=== PATIENT | male | born 1970 | race African-American/Black ===

== ENCOUNTER 2018-06-07 19:49 | Inpatient (IN) ==
[2018-06-07 20:42] LABS: BASOPHILS # (AUTO) 0.1 X10^3/uL (0.0-0.1); BASOPHILS % (AUTO) 0.7 % (0.2-1.0); EOSINOPHILS # (AUTO) 0.1 x10^3/uL (0.0-0.2); EOSINOPHILS % (AUTO) 0.5 % (0.9-2.9); HEMATOCRIT 29.8 % (42.0-54.0); HEMOGLOBIN 10.2 g/dL (13.5-18.0); LYMPHOCYTES # (AUTO) 1.7 X10^3/uL (1.3-2.9); LYMPHOCYTES % (AUTO) 13.9 % (21.0-51.0); MEAN CORPUSCULAR HEMOGLOBIN 29.1 pg (27.0-34.0); MEAN CORPUSCULAR HGB CONC 34.2 g/dL (33.0-35.0); MEAN CORPUSCULAR VOLUME 85.2 fL (80.0-100.0); MEAN PLATELET VOLUME 9.2 fL (7.4-11.0); MONOCYTES # (AUTO) 1.2 x10^3/uL (0.3-0.8); MONOCYTES % (AUTO) 10.1 % (0.0-13.0); NEUTROPHILS # (AUTO) 9.1 x10^3/uL (2.2-4.8); NEUTROPHILS % (AUTO) 74.8 % (42.0-75.0); PLATELET COUNT 267 X10^3/uL (150.0-450.0); RED CELL DISTRIBUTION WIDTH 12.6 % (11.6-16.5); WHITE BLOOD COUNT 12.1 X10^3/uL (3.6-10.0)
[2018-06-07 20:49] LABS: CALCIUM 9.5 mg/dL (8.5-10.1); CREATININE 1.77 mg/dL (0.70-1.30)
[2018-06-07 20:55] LABS: ALBUMIN 1.8 g/dL (3.4-5.0); COR CA(FOR HYPOALB) 11.3 mg/dL (8.5-10.1); TOTAL PROTEIN 7.8 g/dL (6.4-8.2)
[2018-06-07] MEDS ORDERED: NS 1000 ML 1,000 ML ONE (23:47)
[2018-06-07] MEDS ORDERED: HumuLIN R SUBCUT ONE (23:53)
[2018-06-07] MEDS ORDERED: HumuLIN R ONE (23:54)
[2018-06-07] MEDS: NS 1000 ML 1,000 ML IV SCH (23:59)
[2018-06-08] MEDS ORDERED: HumuLIN R SC PRN (02:16)
[2018-06-08] MEDS ORDERED: HumuLIN R ONE (02:25)
[2018-06-08 03:24] VITALS: BMI 25.7
[2018-06-08] MEDS: NICOTINE PATCH TD SCH ×2 (03:41→09:00)
[2018-06-08] MEDS ORDERED: TYLENOL 325 MG TAB PO PRN (05:14)
[2018-06-08] MEDS: ZOSYN VIAL 4.5 GRAMS 4.5 G in NS 100 ML IV + SPIKE MINIBAG* 100 ML IV SCH ×3 (05:46→22:55)
[2018-06-08] MEDS: HumuLIN R SUBCUT PRN ×4 (05:46→20:32)
[2018-06-08] MEDS ORDERED: ZOSYN VIAL 4.5 GRAMS IV SCH (06:00)
[2018-06-08 06:35] LABS: BASOPHILS # (AUTO) 0.1 X10^3/uL (0.0-0.1); BASOPHILS % (AUTO) 0.8 % (0.2-1.0); EOSINOPHILS # (AUTO) 0.2 x10^3/uL (0.0-0.2); EOSINOPHILS % (AUTO) 1.9 % (0.9-2.9); HEMATOCRIT 26.5 % (42.0-54.0); HEMOGLOBIN 9.4 g/dL (13.5-18.0); LYMPHOCYTES # (AUTO) 1.7 X10^3/uL (1.3-2.9); LYMPHOCYTES % (AUTO) 19.1 % (21.0-51.0); MEAN CORPUSCULAR HEMOGLOBIN 29.5 pg (27.0-34.0); MEAN CORPUSCULAR HGB CONC 35.4 g/dL (33.0-35.0); MEAN CORPUSCULAR VOLUME 83.3 fL (80.0-100.0); MEAN PLATELET VOLUME 8.7 fL (7.4-11.0); MONOCYTES # (AUTO) 0.9 x10^3/uL (0.3-0.8); MONOCYTES % (AUTO) 10.1 % (0.0-13.0); NEUTROPHILS % (AUTO) 68.1 % (42.0-75.0); PLATELET COUNT 253 X10^3/uL (150.0-450.0); RED BLOOD COUNT 3.19 X10^6/uL (4.7-6.0); RED CELL DISTRIBUTION WIDTH 12.5 % (11.6-16.5); WHITE BLOOD COUNT 8.8 X10^3/uL (3.6-10.0)
[2018-06-08 06:58] LABS: ALANINE AMINOTRANSFERASE 15 Units/L (12-78); ALBUMIN 1.7 g/dL (3.4-5.0); ALKALINE PHOSPHATASE 34 Units/L (46-116); ASPARTATE AMINO TRANSFERASE 18 Units/L (15-37); BLOOD UREA NITROGEN 23 mg/dL (7-18); CALCIUM 8.9 mg/dL (8.5-10.1); CARBON DIOXIDE 26.1 mmol/L (21-32); CHLORIDE 95 mmol/L (98-107); COR CA(FOR HYPOALB) 10.7 mg/dL (8.5-10.1); COR NA(FOR HYPERGLY) 134 mmol/L (136-145); CREATININE 1.41 mg/dL (0.70-1.30); SODIUM 129 mmol/L (136-145); TOTAL PROTEIN 7.1 g/dL (6.4-8.2); eGFR NON BLACK RACES 58 (>60)
[2018-06-08] MEDS: NS 1000 ML 1,000 ML IV SCH ×4 (08:31→22:56)
[2018-06-08] MEDS: CHECK PATCH XX SCH ×2 (12:36→20:32)
[2018-06-08] MEDS: VANCOMYCIN HCL 1 GM VIAL 1 G in NS 250 ML IV 250 ML IV SCH (15:35)
--- NOTE | 2018-06-08 17:49 | MRI ---
Indication: Osteomyelitis left foot, left 5th toe wound Exam: MRI left foot with and without contrast. Technique: Routine multiplanar multi sequence imaging was performed through the left foot before and after administration of gadolinium without complication. Comparison: None. Findings: The ankle mortise is intact. The talus and calcaneus are unremarkable. The navicular bones are intact and normal signal intensity. The 1st toe has been surgically resected. There is moderate s tranding and edema in the soft tissues along the base around the head of the 1st metatarsal bone . Th ere is moderate edema in the bone marrow along the proximal shaft of the 1st metatarsal bone extendin g distally into the head region. There is moderate bone marrow edema throughout the 2nd metatarsal veronica ne with bony irregularity along the head region of the metatarsal bone . There is abnormal edema in t he proximal phalanx of the 2nd digit extending distally . There is abnormal bone marrow edema through out the 5th metatarsal bone extending into the proximal phalanx of the 5th toe . The distal phalanx o f the 5th toe is normal signal intensity . There is moderate soft tissue swelling and edema around th e DIP joint of the 5th toe extending proximally and distally with skin irregularity laterally. There is an elongated subcutaneous fluid collection along the dorsum of the foot laterally beginning along the base of the 5th metatarsal bone extending distally along the 5th metatarsal bone which extends to the skin surface laterally. The fluid measures 7 cm in length and 1 cm transversely with peripheral enhancement. moderate stranding and edema in the subcutaneous soft tissues along the dorsum of the mi dfoot extending distally around the foot and into the digits. Impression: Status post amputation of 1st toe with moderate edema throughout the 1st metatarsal bone which is damari picious for osteomyelitis. Moderate edema throughout the 2nd metatarsal bone with bony irregularity along the head region which could represent a pathologic fracture or Charcot joint. Recommend plain film correlation. There is mo derate extending into the proximal phalanx of the 2nd toe which is suspicious for osteomyelitis. Moderate bone marrow edema throughout the 5th metatarsal bone extending into the proximal phalanx of the 5th toe which probably represents osteomyelitis . Moderate cellulitis and edema throughout the foot extending along the dorsum of the foot with an dinh gated fluid collection seen along the lateral aspect of the foot , adjacent to the 5th metatarsal bon e , which probably represents a subcutaneous abscess extending to the skin surface laterally. Recomme nd clinical follow-up. Reported By:
[2018-06-08] MEDS ORDERED: MILK OF MAGNESIA PO PRN (18:58)
[2018-06-08] MEDS ORDERED: COLACE CAP 100 MG PO PRN (18:58)
[2018-06-08] MEDS: SNACK - Diabetic Appropriate PO SCH (20:31)
[2018-06-09] MEDS: HumuLIN R SUBCUT PRN ×3 (05:54→22:15)
[2018-06-09] MEDS: ZOSYN VIAL 4.5 GRAMS 4.5 G in NS 100 ML IV + SPIKE MINIBAG* 100 ML IV SCH ×3 (05:55→22:33)
[2018-06-09 06:09] LABS: BASOPHILS # (AUTO) 0.1 X10^3/uL (0.0-0.1); BASOPHILS % (AUTO) 0.7 % (0.2-1.0); EOSINOPHILS # (AUTO) 0.1 x10^3/uL (0.0-0.2); EOSINOPHILS % (AUTO) 1.4 % (0.9-2.9); HEMATOCRIT 24.5 % (42.0-54.0); HEMOGLOBIN 8.5 g/dL (13.5-18.0); LYMPHOCYTES # (AUTO) 2.2 X10^3/uL (1.3-2.9); MEAN CORPUSCULAR HEMOGLOBIN 29.6 pg (27.0-34.0); MEAN CORPUSCULAR VOLUME 84.7 fL (80.0-100.0); MEAN PLATELET VOLUME 8.2 fL (7.4-11.0); MONOCYTES # (AUTO) 1.1 x10^3/uL (0.3-0.8); MONOCYTES % (AUTO) 12.4 % (0.0-13.0); NEUTROPHILS # (AUTO) 5.3 x10^3/uL (2.2-4.8); NEUTROPHILS % (AUTO) 60.5 % (42.0-75.0); PLATELET COUNT 247 X10^3/uL (150.0-450.0); RED BLOOD COUNT 2.89 X10^6/uL (4.7-6.0); RED CELL DISTRIBUTION WIDTH 12.6 % (11.6-16.5); WHITE BLOOD COUNT 8.7 X10^3/uL (3.6-10.0)
[2018-06-09 06:37] LABS: ALANINE AMINOTRANSFERASE 14 Units/L (12-78); ALBUMIN 1.4 g/dL (3.4-5.0); ALKALINE PHOSPHATASE 30 Units/L (46-116); ASPARTATE AMINO TRANSFERASE 16 Units/L (15-37); BLOOD UREA NITROGEN 14 mg/dL (7-18); CALCIUM 8.4 mg/dL (8.5-10.1); CARBON DIOXIDE 24.5 mmol/L (21-32); CHLORIDE 98 mmol/L (98-107); COR CA(FOR HYPOALB) 10.5 mg/dL (8.5-10.1); COR NA(FOR HYPERGLY) 136 mmol/L (136-145); CREATININE 1.45 mg/dL (0.70-1.30); SODIUM 130 mmol/L (136-145); TOTAL PROTEIN 6.4 g/dL (6.4-8.2); eGFR NON BLACK RACES 56 (>60)
[2018-06-09] MEDS: CHECK PATCH XX SCH ×2 (09:57→21:28)
[2018-06-09] MEDS: VANCOMYCIN HCL 1 GM VIAL 1 G in NS 250 ML IV 250 ML IV SCH ×2 (09:58→21:28)
[2018-06-09] MEDS: NICOTINE PATCH TD SCH (09:58)
[2018-06-09] MEDS ORDERED: HYDROGEN PEROXIDE 3% ONE (12:12)
--- NOTE | 2018-06-09 13:05 | DR.PROGNOT ---
Hospital Progress Notes - Progress Note for Day of: Progress Note Date: 06/09/18 - Chief Complaint Chief Complaint: still having significant drainage from Lt foot ulcer , culture revealed mixed bacteria , pt is afebrile today - Past Medical Family Social History Past Med/Fam/Surg Hx: No changes since H&P Allergies: Allergies No Known Drug Allergies Allergy (Verified 06/07/18 19:58) - Review Of Systems ROS: No change since H&P - Vital Signs Vital Signs: Temperature 98.6 F Pulse Rate [Right Radial] 91 Pulse Rate [Right] 92 Pulse Rate 113 Respiratory Rate 16 Blood Pressure [Right Arm] 160/94 Blood Pressure [Left Arm] 139/82 Blood Pressure 112/68 O2 Sat by Pulse Oximetry 100 - Physical Exam Oriented: Normal Eyes: Normal Ear: Normal Nose: Normal Respiratory: Normal Cardiovascular: Normal GI: Tenderness: Normal Musculoskeletal: Foot (dressing was changed . cellulitis had improvrd no tunneling now and no necrosis ..signs of charcot foot 4 x 3 cm open wound lateral Lt foot ) Speech Pattern: Clear, Appropriate - Laboratory and Diagnostics Result Diagrams: 06/09/18 05:40 06/09/18 05:40 Labs: 06/07/18 20:22 Foot - Left Gram Stain - Final 06/07/18 20:22 Foot - Left Wound Culture - Preliminary 06/08/18 14:13 Foot - Left Gram Stain - Final 06/08/18 14:13 Foot - Left Wound Culture - Preliminary Laboratory WBC 8.7 X10^3/uL (3.6-10.0) 06/09/18 05:40 RBC 2.89 X10^6/uL (4.7-6.0) L 06/09/18 05:40 Hgb 8.5 g/dL (13.5-18.0) L 06/09/18 05:40 Hct 24.5 % (42.0-54.0) L 06/09/18 05:40 MCV 84.7 fL (80.0-100.0) 06/09/18 05:40 MCH 29.6 pg (27.0-34.0) 06/09/18 05:40 MCHC 35.0 g/dL (33.0-35.0) 06/09/18 05:40 RDW 12.6 % (11.6-16.5) 06/09/18 05:40 Plt Count 247 X10^3/uL (150.0-450.0) 06/09/18 05:40 MPV 8.2 fL (7.4-11.0) 06/09/18 05:40 Neut % (Auto) 60.5 % (42.0-75.0) 06/09/18 05:40 Lymph % (Auto) 25.0 % (21.0-51.0) 06/09/18 05:40 Josephine % (Auto) 12.4 % (0.0-13.0) 06/09/18 05:40 Eos % (Auto) 1.4 % (0.9-2.9) 06/09/18 05:40 Baso % (Auto) 0.7 % (0.2-1.0) 06/09/18 05:40 Neut # (Auto) 5.3 x10^3/uL (2.2-4.8) H 06/09/18 05:40 Lymph # (Auto) 2.2 X10^3/uL (1.3-2.9) 06/09/18 05:40 Josephine # (Auto) 1.1 x10^3/uL (0.3-0.8) H 06/09/18 05:40 Eos # (Auto) 0.1 x10^3/uL (0.0-0.2) 06/09/18 05:40 Baso # (Auto) 0.1 X10^3/uL (0.0-0.1) 06/09/18 05:40 Absolute Nucleated RBC 0.0 /100WBC 06/09/18 05:40 Sodium 130 mmol/L (136-145) L 06/09/18 05:40 Corrected Sodium 136 mmol/L (136-145) 06/09/18 05:40 Potassium 4.4 mmol/L (3.5-5.1) 06/09/18 05:40 Chloride 98 mmol/L (98-107) 06/09/18 05:40 Carbon Dioxide 24.5 mmol/L (21-32) 06/09/18 05:40 BUN 14 mg/dL (7-18) 06/09/18 05:40 Creatinine 1.45 mg/dL (0.70-1.30) H 06/09/18 05:40 Est GFR (MDRD) Af Amer > 60 (>60) 06/09/18 05:40 Est GFR (MDRD) Non-Af 56 (>60) L 06/09/18 05:40 Glucose 364 mg/dL (65-99) H 06/09/18 05:40 POC Glucose (mg/dL) 378 mg/dL (65-99) H 06/09/18 11:39 Calcium 8.4 mg/dL (8.5-10.1) L 06/09/18 05:40 Corrected Calcium 10.5 mg/dL (8.5-10.1) H 06/09/18 05:40 Total Bilirubin 0.60 mg/dL (0.2-1.0) 06/09/18 05:40 AST 16 Units/L (15-37) 06/09/18 05:40 ALT 14 Units/L (12-78) 06/09/18 05:40 Alkaline Phosphatase 30 Units/L (46-116) L 06/09/18 05:40 C-Reactive Protein 336.90 mg/L (0-3.0) H 06/07/18 20:25 Total Protein 6.4 g/dL (6.4-8.2) 06/09/18 05:40 Albumin 1.4 g/dL (3.4-5.0) L 06/09/18 05:40 Globulin 5.0 g/dL (2.5-4.5) H 06/09/18 05:40 Albumin/Globulin Ratio 0.3 Ratio (1.1-2.1) L 06/09/18 05:40 Random Vancomycin 4.5 ug/mL 06/09/18 05:40 Acetone, Semi-Quant Small (NEGATIVE) H 06/07/18 20:25 Tissue Pathology To follow 06/08/18 14:05 - Assessment and Plan 1: infected diabetic Lt foot foot with abscess and osteomyelitis involving most of the metatarsals . DM. diabetic neuropathy . same IV ATB and local care as in Pt for few day then. amputation of the foot vs prolonged IV ATB were D/W Pt .
[2018-06-09] MEDS ORDERED: VANCOMYCIN HCL 1 GM VIAL 1 G in D5W 250 ML IV 250 ML IV ONE (14:27)
[2018-06-09] MEDS: NS 1000 ML 1,000 ML IV SCH ×2 (15:22→15:45)
[2018-06-09] MEDS: SNACK - Diabetic Appropriate PO SCH (20:00)
--- NOTE | 2018-06-09 20:11 | DR.H&P ---
H&P - History & Physical for Day of: H&P Date: 06/08/18 - Chief Complaint Chief Complaint: left foot pain, redness, edema, wound - History of Present Illness History of Present Illness: is a 47 year old black male who presented to the emergency room complaining of left foot redness, warmth, edema , and a wound to the left side of foot. Patient reports that his great toe was amputated in January while he incarcerated at [facility]. Patient was released from incarceration May 11 2018. Patient reports a normal check-up by the ER on May 18, 2018. Patient has history of Diabetes for which he reports use of Novolin R insulin. On examination, patient has a wound measuring 1.5cmX 1.5cm with tendon visible. On arrival, vitals were 99.6,92,16,96% RA 139/ 82. Labs were obtained. Abnormal lab values include the following: Sodium 123, Chloride 89, BUN 28, Creatinine 1.77, GFR Af Amer 54, Non Af 44, Glucose 412, 446, Corrected Calcium 11.3, Alkaline Phis 37, C Reactive Protein 336.90, Albumin 1.8, Globulin 6.0, WBC 12.1, RBC 3.50, HGB 10.2, HCT 29.8. Acetone, Semi -Quant Small. Wound cultures and blood cultures x 2 are pending. He was given Normal Saline 1000mls @ 100mls/hr IV and Hum R 10 units SQ X 1 in the ER. He was admitted for wound care, possible I&D, aggressive IV antibiotics, pain management, and control of hyperglycemia. Today, we plan to obtain a lower extremity MRI. Otherwise, we will follow up with AM labs and continue to monitor patient. - Past Medical History Past Medical History: Diabetes, Dyslipidemia, Hypertension, Seizures - Past Surgical History Additional Surgical History: left great toe amputation - Family History Family Medical History: Heart Failure, Sudden Cardiac - Social History Does patient currently use any type of tobacco product: Yes Have you used tobacco products in the last 12 months: Yes Type of Tobacco Use: Cigarettes Alcohol Use: None Drug Use: Marijuana - Medications Home Medications: No Known Drug Allergies Allergy (Verified 06/07/18 19:58) CONTINUE taking the following medications insulin regular human [Novolin R Regular U-100 Insuln] See Label Instructions .ROUTE .COMPLEX PRN 07/24/18 [History] New Prescriptions ciprofloxacin HCl [Cipro] 500 mg PO BID #56 tab 06/09/18 [Rx] hydrocodone-acetaminophen [Minto] 1 tab PO Q6H PRN #28 tab 06/09/18 [Rx] - Review of Systems Constitutional: No Symptoms Reported Eyes: No Symptoms Reported ENT: No Symptoms Reported Respiratory: No Symptoms Reported Cardiovascular: No Symptoms Reported Gastrointestinal: No Symptoms Reported Genitourinary: No Symptoms Reported Musculoskeletal: No Symptoms Reported, Foot Pain (left foot pain ) Skin: See HPI, Wound Neurological: No Symptoms Reported - Physical Exam Vital Signs: Temperature 100.0 F Pulse Rate [Right Radial] 98 Pulse Rate [Right] 92 Pulse Rate 113 Respiratory Rate 16 Blood Pressure [Right Arm] 176/92 Blood Pressure [Left Arm] 139/82 Blood Pressure 112/68 O2 Sat by Pulse Oximetry 100 Oriented: Normal Eyes: Normal Ear: Normal Nose: Normal Throat: Normal Respiratory: Clear Throughout Cardiovascular: Normal. negative: S3, S4, Murmur : Normal Auscultation: Bowel Sounds: Normal Palpation: Normal Tenderness: Normal Skin: Red, Tender, Hot, Wound Musculoskeletal: Left, Foot, Swelling, Tender Psychiatric: Normal Mood Description: Calm Affect: Normal Speech Pattern: Clear - Assessment/Plan (1) Cellulitis of left foot Status: Acute Plan: IV ANTIBIOTICS, WOUND CARE, I&D, LOWER EXTREMITY MRI TODAY, CONTINUE TO MONITOR - Allergies Allergies/Adverse Reactions: Allergies Allergy/AdvReac Type Severity Reaction Status Date / Time No Known Drug Allergies Allergy Verified 06/07/18 19:58
--- NOTE | 2018-06-09 20:26 | PCM.PROG ---
Progress Note - Progress Note for Day of Date of Exam: 06/09/18 - Subjective Subjective: WAS ADMITTED FOR LEFT LOWER EXTREMITY CELLULITIS AND A DIABETIC ULCER. TODAY, HE IS ALERT AND ORIENTED, SITTING UP IN BED ON MORNING ROUNDS. HE CONTINUES WITH COMPLAINTS OF LEFT FOOT PAIN. TOOK HIM DOWN FOR AN I&D YESTERDAY. ON EXAMINATION, HEART IS REGULAR IN RATE AND RHYTHM. BILATERAL LUNGS ARE CLEAR TO AUSCULTATION. ABDOMEN IS ROUND, SOFT, AND NON- TENDER WITH NORMAL BOWEL SOUNDS NOTED IN ALL QUADRANTS. LEFT FOOT CONTINUES WITH ERYTHEMA AND EDEMA. NO DRAINAGE NOTED FROM WOUND AT THIS TIME. HIS VITALS THIS MORNING ARE 8.6-91-16-100%-160/94. LABS WERE OBTAINED. ABNORMAL LAB VALUES INCLUDE THE FOLLOWING: RBC 2.89, HGB 8.5, HCT 24.5, SODIUM 130, CREATININE 1.45 , GLUCOSE 364, CALCIUM 8.4, ALK PHOS 30, ALBUMIN 1.4. A LOWER EXTREMITY MRI WAS OBTAINED YESTERDAY AND REVEALED: Status post amputation of 1st toe with moderate edema throughout the 1st metatarsal bone which is suspicious for osteomyelitis. Moderate edema throughout the 2nd metatarsal bone with bony irregularity along the head region which could represent a pathologic fracture or Charcot joint. Recommend plain film correlation. There is moderate extending into the proximal phalanx of the 2nd toe which is suspicious for osteomyelitis. Moderate bone marrow edema throughout the 5th metatarsal bone extending into the proximal phalanx of the 5th toe which probably represents osteomyelitis .Moderate cellulitis and edema throughout the foot extending along the dorsum of the foot with an elongated fluid collection seen along the lateral aspect of the foot , adjacent to the 5th metatarsal bone, which probably represents a subcutaneous abscess extending to the skin surface laterally. INITIALLY, PATIENT REFUSED PICC LINE AND IV TREATMENT AND REQUESTED TO BE DISCHARGED HOME ON IV ANTIBIOTICS TODAY. AFTER PATIENT SPOKE WITH , HE AGREED TO HAVE PICC LINE INSERTED AND TO BE GIVEN IV ANTIBIOTICS DAILY IN THE ER. ANESTHESIA WILL PLACE PICC LINE IN THE MORNING. OTHERWISE, WE WILL CONTINUE WITH IV ANTIBIOTICS, WOUND CARE, AND CURRENT PLAN OF CARE TODAY. OTHERWISE, WE PLAN TO FOLLOW UP WITH AM LABS AND CONTINUE TO MONITOR PATIENT. - Past Medical Family Social History Past Med/Fam/Surg Hx: No changes since H&P Allergies: Allergies No Known Drug Allergies Allergy (Verified 06/07/18 19:58) - Review of Systems ROS: No change since H&P - Vital Signs and I&O's Vital Signs: Temperature 100.0 F Pulse Rate [Right Radial] 98 Pulse Rate [Right] 92 Pulse Rate 113 Respiratory Rate 16 Blood Pressure [Right Arm] 176/92 Blood Pressure [Left Arm] 139/82 Blood Pressure 112/68 O2 Sat by Pulse Oximetry 100 Intake and Output: Intake & Output 06/07/18 06/08/18 06/09/18 06/10/18 11:59 11:59 11:59 11:59 Intake Total 1266 / 1266 3009 / 3009 1030 / 1030 Output Total 1100 / 1100 650 / 650 500 / 500 Balance 166 / 166 2359 / 2359 530 / 530 - Physical Exam Oriented: Normal Eyes: Normal Ear: Normal Nose: Normal Throat: Normal Respiratory: Normal Cardiovascular: Normal. negative: S3, S4, Murmur : Normal Auscultation: Bowel Sounds: Normal Palpation: Normal Tenderness: Normal Skin: Red, Tender, Hot, Wound Musculoskeletal: Left, Foot, Swelling, Tender Psychiatric: Normal Mood Description: Calm Affect: Normal Speech Pattern: Clear - Laboratory and Diagnostics Result Diagrams: 06/09/18 05:40 06/09/18 16:43 Labs: 06/07/18 20:22 Foot - Left Gram Stain - Final 06/07/18 20:22 Foot - Left Wound Culture - Preliminary 06/08/18 14:13 Foot - Left Gram Stain - Final 06/08/18 14:13 Foot - Left Wound Culture - Preliminary Laboratory WBC 8.7 X10^3/uL (3.6-10.0) 06/09/18 05:40 RBC 2.89 X10^6/uL (4.7-6.0) L 06/09/18 05:40 Hgb 8.5 g/dL (13.5-18.0) L 06/09/18 05:40 Hct 24.5 % (42.0-54.0) L 06/09/18 05:40 MCV 84.7 fL (80.0-100.0) 06/09/18 05:40 MCH 29.6 pg (27.0-34.0) 06/09/18 05:40 MCHC 35.0 g/dL (33.0-35.0) 06/09/18 05:40 RDW 12.6 % (11.6-16.5) 06/09/18 05:40 Plt Count 247 X10^3/uL (150.0-450.0) 06/09/18 05:40 MPV 8.2 fL (7.4-11.0) 06/09/18 05:40 Neut % (Auto) 60.5 % (42.0-75.0) 06/09/18 05:40 Lymph % (Auto) 25.0 % (21.0-51.0) 06/09/18 05:40 Nye % (Auto) 12.4 % (0.0-13.0) 06/09/18 05:40 Eos % (Auto) 1.4 % (0.9-2.9) 06/09/18 05:40 Baso % (Auto) 0.7 % (0.2-1.0) 06/09/18 05:40 Neut # (Auto) 5.3 x10^3/uL (2.2-4.8) H 06/09/18 05:40 Lymph # (Auto) 2.2 X10^3/uL (1.3-2.9) 06/09/18 05:40 Nye # (Auto) 1.1 x10^3/uL (0.3-0.8) H 06/09/18 05:40 Eos # (Auto) 0.1 x10^3/uL (0.0-0.2) 06/09/18 05:40 Baso # (Auto) 0.1 X10^3/uL (0.0-0.1) 06/09/18 05:40 Absolute Nucleated RBC 0.0 /100WBC 06/09/18 05:40 Sodium 130 mmol/L (136-145) L 06/09/18 05:40 Corrected Sodium 136 mmol/L (136-145) 06/09/18 05:40 Potassium 4.4 mmol/L (3.5-5.1) 06/09/18 05:40 Chloride 98 mmol/L (98-107) 06/09/18 05:40 Carbon Dioxide 24.5 mmol/L (21-32) 06/09/18 05:40 BUN 14 mg/dL (7-18) 06/09/18 05:40 Creatinine 1.45 mg/dL (0.70-1.30) H 06/09/18 05:40 Est GFR (MDRD) Af Amer > 60 (>60) 06/09/18 05:40 Est GFR (MDRD) Non-Af 56 (>60) L 06/09/18 05:40 Glucose 409 mg/dL (65-99) H 06/09/18 16:43 POC Glucose (mg/dL) 407 mg/dL (65-99) H* 06/09/18 16:15 Calcium 8.4 mg/dL (8.5-10.1) L 06/09/18 05:40 Corrected Calcium 10.5 mg/dL (8.5-10.1) H 06/09/18 05:40 Total Bilirubin 0.60 mg/dL (0.2-1.0) 06/09/18 05:40 AST 16 Units/L (15-37) 06/09/18 05:40 ALT 14 Units/L (12-78) 06/09/18 05:40 Alkaline Phosphatase 30 Units/L (46-116) L 06/09/18 05:40 C-Reactive Protein 336.90 mg/L (0-3.0) H 06/07/18 20:25 Total Protein 6.4 g/dL (6.4-8.2) 06/09/18 05:40 Albumin 1.4 g/dL (3.4-5.0) L 06/09/18 05:40 Globulin 5.0 g/dL (2.5-4.5) H 06/09/18 05:40 Albumin/Globulin Ratio 0.3 Ratio (1.1-2.1) L 06/09/18 05:40 Random Vancomycin 2.7 ug/mL 06/09/18 12:37 Acetone, Semi-Quant Small (NEGATIVE) H 06/07/18 20:25 Tissue Pathology To follow 06/08/18 14:05 - Plan (1) Cellulitis of left foot Status: Acute Plan: IV ANTIBIOTICS, WOUND CARE, I&D, LOWER EXTREMITY MRI TODAY, CONTINUE TO MONITOR (2) Osteomyelitis Status: Acute Qualifiers: Osteomyelitis type: other acute Osteomyelitis location: foot Laterality: left Qualified Code(s): M86.172 - Other acute osteomyelitis, left ankle and foot Plan: INSERT PICC LINE TOMORROW, IV ANTIBIOTICS, WOUND CARE, CONTINUE TO MONITOR
[2018-06-10] MEDS: NS 1000 ML 1,000 ML IV SCH ×3 (02:40→15:39)
[2018-06-10] MEDS: ZOSYN VIAL 4.5 GRAMS 4.5 G in NS 100 ML IV + SPIKE MINIBAG* 100 ML IV SCH ×3 (06:23→22:45)
[2018-06-10] MEDS: HumuLIN R SUBCUT PRN ×4 (06:24→21:15)
[2018-06-10 06:33] LABS: BASOPHILS % (AUTO) 0.6 % (0.2-1.0); EOSINOPHILS # (AUTO) 0.3 x10^3/uL (0.0-0.2); EOSINOPHILS % (AUTO) 3.8 % (0.9-2.9); HEMATOCRIT 23.6 % (42.0-54.0); HEMOGLOBIN 8.3 g/dL (13.5-18.0); LYMPHOCYTES # (AUTO) 2.1 X10^3/uL (1.3-2.9); LYMPHOCYTES % (AUTO) 27.6 % (21.0-51.0); MEAN CORPUSCULAR HEMOGLOBIN 29.6 pg (27.0-34.0); MEAN CORPUSCULAR VOLUME 84.6 fL (80.0-100.0); MEAN PLATELET VOLUME 8.1 fL (7.4-11.0); MONOCYTES # (AUTO) 0.8 x10^3/uL (0.3-0.8); MONOCYTES % (AUTO) 10.1 % (0.0-13.0); NEUTROPHILS # (AUTO) 4.5 x10^3/uL (2.2-4.8); NEUTROPHILS % (AUTO) 57.9 % (42.0-75.0); PLATELET COUNT 250 X10^3/uL (150.0-450.0); RED BLOOD COUNT 2.79 X10^6/uL (4.7-6.0); RED CELL DISTRIBUTION WIDTH 12.7 % (11.6-16.5); WHITE BLOOD COUNT 7.7 X10^3/uL (3.6-10.0)
[2018-06-10 06:57] LABS: ALANINE AMINOTRANSFERASE 12 Units/L (12-78); ALBUMIN 1.3 g/dL (3.4-5.0); ALKALINE PHOSPHATASE 31 Units/L (46-116); ASPARTATE AMINO TRANSFERASE 16 Units/L (15-37); BLOOD UREA NITROGEN 9 mg/dL (7-18); CALCIUM 8.4 mg/dL (8.5-10.1); CARBON DIOXIDE 24.2 mmol/L (21-32); CHLORIDE 101 mmol/L (98-107); COR CA(FOR HYPOALB) 10.6 mg/dL (8.5-10.1); COR NA(FOR HYPERGLY) 138 mmol/L (136-145); CREATININE 1.38 mg/dL (0.70-1.30); SODIUM 134 mmol/L (136-145); TOTAL PROTEIN 6.4 g/dL (6.4-8.2); eGFR NON BLACK RACES 59 (>60)
[2018-06-10] MEDS: ULTRAM PO PRN (08:33)
[2018-06-10] MEDS: ALBUMIN HUMAN 25%- 100 ML 100 ML IV SCH (09:57)
[2018-06-10] MEDS: NICOTINE PATCH TD SCH (09:58)
[2018-06-10] MEDS: CHECK PATCH XX SCH ×2 (09:58→21:00)
[2018-06-10] MEDS: VANCOMYCIN HCL 1 GM VIAL 1 G in NS 250 ML IV 250 ML IV SCH ×2 (09:58→21:42)
[2018-06-10] MEDS: SNACK - Diabetic Appropriate PO SCH (20:00)
[2018-06-10] MEDS ORDERED: MORPHINE SULFATE INJ 2 MG INJ IVP ONE (20:02)
[2018-06-10 21:30] LABS: CREATININE 1.45 mg/dL (0.70-1.30)
--- NOTE | 2018-06-10 23:18 | DR.PROGNOT ---
Hospital Progress Notes - Progress Note for Day of: Progress Note Date: 06/10/18 - Chief Complaint Chief Complaint: less drainage from Lt foot ulcer , culture revealed mixed bacteria , pt is having low grade fever today, seems to be improving slowly . - Past Medical Family Social History Past Med/Fam/Surg Hx: No changes since H&P Allergies: Allergies No Known Drug Allergies Allergy (Verified 06/07/18 19:58) - Review Of Systems ROS: No change since H&P - Vital Signs Vital Signs: Temperature 99.1 F Pulse Rate [Right Radial] 88 Pulse Rate [Right] 92 Pulse Rate 113 Respiratory Rate 22 Blood Pressure [Right Arm] 175/82 Blood Pressure [Left Arm] 139/82 Blood Pressure 112/68 O2 Sat by Pulse Oximetry 99 - Physical Exam Oriented: Normal Eyes: Normal Ear: Normal Nose: Normal Throat: Normal Respiratory: Normal Cardiovascular: Normal. negative: S3, S4, Murmur : Normal GI:Auscultation: Normal GI:Palpation: Normal GI: Tenderness: Normal Skin: Red, Tender, Hot, Wound Musculoskeletal: Left, Foot, Swelling, Tender Psychiatric: Normal Mood Description: Calm Affect: Normal Speech Pattern: Clear, Appropriate - Laboratory and Diagnostics Result Diagrams: 06/10/18 05:27 06/10/18 20:42 Labs: 06/08/18 08:36 Blood Blood Culture - Preliminary 06/08/18 08:28 Blood Blood Culture - Preliminary 06/08/18 14:13 Foot - Left Gram Stain - Final 06/08/18 14:13 Foot - Left Wound Culture - Preliminary 06/07/18 20:22 Foot - Left Gram Stain - Final 06/07/18 20:22 Foot - Left Wound Culture - Preliminary Laboratory WBC 7.7 X10^3/uL (3.6-10.0) 06/10/18 05:27 RBC 2.79 X10^6/uL (4.7-6.0) L 06/10/18 05:27 Hgb 8.3 g/dL (13.5-18.0) L 06/10/18 05:27 Hct 23.6 % (42.0-54.0) L 06/10/18 05:27 MCV 84.6 fL (80.0-100.0) 06/10/18 05:27 MCH 29.6 pg (27.0-34.0) 06/10/18 05:27 MCHC 35.0 g/dL (33.0-35.0) 06/10/18 05:27 RDW 12.7 % (11.6-16.5) 06/10/18 05:27 Plt Count 250 X10^3/uL (150.0-450.0) 06/10/18 05:27 MPV 8.1 fL (7.4-11.0) 06/10/18 05:27 Neut % (Auto) 57.9 % (42.0-75.0) 06/10/18 05:27 Lymph % (Auto) 27.6 % (21.0-51.0) 06/10/18 05:27 Wilson % (Auto) 10.1 % (0.0-13.0) 06/10/18 05:27 Eos % (Auto) 3.8 % (0.9-2.9) H 06/10/18 05:27 Baso % (Auto) 0.6 % (0.2-1.0) 06/10/18 05:27 Neut # (Auto) 4.5 x10^3/uL (2.2-4.8) 06/10/18 05:27 Lymph # (Auto) 2.1 X10^3/uL (1.3-2.9) 06/10/18 05:27 Wilson # (Auto) 0.8 x10^3/uL (0.3-0.8) 06/10/18 05:27 Eos # (Auto) 0.3 x10^3/uL (0.0-0.2) H 06/10/18 05:27 Baso # (Auto) 0.0 X10^3/uL (0.0-0.1) 06/10/18 05:27 Absolute Nucleated RBC 0.0 /100WBC 06/10/18 05:27 Sodium 134 mmol/L (136-145) L 06/10/18 05:27 Corrected Sodium 138 mmol/L (136-145) 06/10/18 05:27 Potassium 3.9 mmol/L (3.5-5.1) 06/10/18 05:27 Chloride 101 mmol/L (98-107) 06/10/18 05:27 Carbon Dioxide 24.2 mmol/L (21-32) 06/10/18 05:27 BUN 9 mg/dL (7-18) 06/10/18 05:27 Creatinine 1.45 mg/dL (0.70-1.30) H 06/10/18 20:42 Est GFR (MDRD) Af Amer > 60 (>60) 06/10/18 05:27 Est GFR (MDRD) Non-Af 59 (>60) 06/10/18 05:27 Glucose 286 mg/dL (65-99) H 06/10/18 05:27 POC Glucose (mg/dL) 270 mg/dL (65-99) H 06/10/18 20:46 Calcium 8.4 mg/dL (8.5-10.1) L 06/10/18 05:27 Corrected Calcium 10.6 mg/dL (8.5-10.1) H 06/10/18 05:27 Total Bilirubin 0.50 mg/dL (0.2-1.0) 06/10/18 05:27 AST 16 Units/L (15-37) 06/10/18 05:27 ALT 12 Units/L (12-78) 06/10/18 05:27 Alkaline Phosphatase 31 Units/L (46-116) L 06/10/18 05:27 C-Reactive Protein 336.90 mg/L (0-3.0) H 06/07/18 20:25 Total Protein 6.4 g/dL (6.4-8.2) 06/10/18 05:27 Albumin 1.3 g/dL (3.4-5.0) L 06/10/18 05:27 Globulin 5.1 g/dL (2.5-4.5) H 06/10/18 05:27 Albumin/Globulin Ratio 0.3 Ratio (1.1-2.1) L 06/10/18 05:27 Vancomycin Trough 13.0 ug/mL (15-20) L 06/10/18 20:42 Random Vancomycin 2.7 ug/mL 06/09/18 12:37 Acetone, Semi-Quant Small (NEGATIVE) H 06/07/18 20:25 Tissue Pathology To follow 06/08/18 14:05 - Assessment and Plan 1: infected diabetic Lt foot foot with abscess and osteomyelitis involving most of the metatarsals . DM. diabetic neuropathy . anemia and hypoalbumenimia from the chronic and acute infection. same IV ATB and arrange for OP treatment via PIC line and will follow as out Pt - Problem Patient Problems: Patient Problems Cellulitis of left foot (Acute) L03.116 Osteomyelitis (Acute) M86.9
[2018-06-11] MEDS: NS 1000 ML 1,000 ML IV SCH ×3 (04:20→18:08)
[2018-06-11] MEDS: HumuLIN R SUBCUT PRN ×4 (06:02→21:29)
[2018-06-11] MEDS: ZOSYN VIAL 4.5 GRAMS 4.5 G in NS 100 ML IV + SPIKE MINIBAG* 100 ML IV SCH ×3 (06:03→22:16)
[2018-06-11 06:46] LABS: ALANINE AMINOTRANSFERASE 12 Units/L (12-78); ALBUMIN 1.7 g/dL (3.4-5.0); ALKALINE PHOSPHATASE 31 Units/L (46-116); BLOOD UREA NITROGEN 7 mg/dL (7-18); CALCIUM 8.5 mg/dL (8.5-10.1); CARBON DIOXIDE 22.7 mmol/L (21-32); CHLORIDE 101 mmol/L (98-107); COR CA(FOR HYPOALB) 10.3 mg/dL (8.5-10.1); COR NA(FOR HYPERGLY) 136 mmol/L (136-145); CREATININE 1.18 mg/dL (0.70-1.30); SODIUM 133 mmol/L (136-145); TOTAL PROTEIN 6.8 g/dL (6.4-8.2); eGFR NON BLACK RACES > 60 (>60)
[2018-06-11 06:49] LABS: ASPARTATE AMINO TRANSFERASE 28 Units/L (15-37)
[2018-06-11 06:52] LABS: BASOPHILS % (AUTO) 0.6 % (0.2-1.0); EOSINOPHILS # (AUTO) 0.4 x10^3/uL (0.0-0.2); EOSINOPHILS % (AUTO) 5.5 % (0.9-2.9); HEMATOCRIT 22.3 % (42.0-54.0); HEMOGLOBIN 7.9 g/dL (13.5-18.0); LYMPHOCYTES # (AUTO) 2.2 X10^3/uL (1.3-2.9); MEAN CORPUSCULAR HEMOGLOBIN 29.9 pg (27.0-34.0); MEAN CORPUSCULAR HGB CONC 35.2 g/dL (33.0-35.0); MEAN CORPUSCULAR VOLUME 84.9 fL (80.0-100.0); MEAN PLATELET VOLUME 8.1 fL (7.4-11.0); MONOCYTES # (AUTO) 0.6 x10^3/uL (0.3-0.8); NEUTROPHILS # (AUTO) 4.3 x10^3/uL (2.2-4.8); NEUTROPHILS % (AUTO) 56.9 % (42.0-75.0); PLATELET COUNT 263 X10^3/uL (150.0-450.0); RED BLOOD COUNT 2.63 X10^6/uL (4.7-6.0); RED CELL DISTRIBUTION WIDTH 12.8 % (11.6-16.5); WHITE BLOOD COUNT 7.6 X10^3/uL (3.6-10.0)
[2018-06-11 07:14] LABS: PLATELET MORPHOLOGY COMMENT NORMAL (NORMAL)
[2018-06-11] MEDS: NICOTINE PATCH TD SCH (10:01)
[2018-06-11] MEDS: CHECK PATCH XX SCH ×2 (10:01→21:00)
[2018-06-11] MEDS: ALBUMIN HUMAN 25%- 100 ML 100 ML IV SCH (10:02)
--- NOTE | 2018-06-11 10:12 | DR.PROGNOT ---
Hospital Progress Notes - Progress Note for Day of: Progress Note Date: 06/11/18 - Chief Complaint Chief Complaint: less drainage from Lt foot ulcer . no new complaint, - Past Medical Family Social History Past Med/Fam/Surg Hx: No changes since H&P Allergies: Allergies No Known Drug Allergies Allergy (Verified 06/07/18 19:58) - Review Of Systems ROS: No change since H&P - Vital Signs Vital Signs: Temperature 98.9 F Pulse Rate [Right Radial] 81 Pulse Rate [Right] 92 Pulse Rate 113 Respiratory Rate 22 Blood Pressure [Right Arm] 165/85 Blood Pressure [Left Arm] 139/82 Blood Pressure 112/68 O2 Sat by Pulse Oximetry 97 - Physical Exam Oriented: Normal Eyes: Normal Ear: Normal Nose: Normal Throat: Normal Respiratory: Normal Cardiovascular: Normal. negative: S3, S4, Murmur : Normal GI:Auscultation: Normal GI:Palpation: Normal GI: Tenderness: Normal Skin: Wound (Lt foot ulcer is the same , 4 x 3 cm open area with exposed deeper structures .some associated necrosis around the edges .the whole foot is swollen frm the associated osteomyelitis ) Musculoskeletal: Left, Foot, Swelling, Tender Psychiatric: Normal Mood Description: Calm Affect: Normal Speech Pattern: Clear, Appropriate - Laboratory and Diagnostics Result Diagrams: 06/11/18 05:11 06/11/18 05:11 Labs: 06/07/18 20:22 Foot - Left Gram Stain - Final 06/07/18 20:22 Foot - Left Wound Culture - Preliminary 06/08/18 14:13 Foot - Left Gram Stain - Final 06/08/18 14:13 Foot - Left Wound Culture - Preliminary 06/08/18 08:36 Blood Blood Culture - Preliminary 06/08/18 08:28 Blood Blood Culture - Preliminary Laboratory WBC 7.6 X10^3/uL (3.6-10.0) 06/11/18 05:11 RBC 2.63 X10^6/uL (4.7-6.0) L 06/11/18 05:11 Hgb 7.9 g/dL (13.5-18.0) L 06/11/18 05:11 Hct 22.3 % (42.0-54.0) L 06/11/18 05:11 MCV 84.9 fL (80.0-100.0) 06/11/18 05:11 MCH 29.9 pg (27.0-34.0) 06/11/18 05:11 MCHC 35.2 g/dL (33.0-35.0) H 06/11/18 05:11 RDW 12.8 % (11.6-16.5) 06/11/18 05:11 Plt Count 263 X10^3/uL (150.0-450.0) 06/11/18 05:11 Plt Count Comment Adequate (ADEQUATE) 06/11/18 05:11 MPV 8.1 fL (7.4-11.0) 06/11/18 05:11 Neut % (Auto) 56.9 % (42.0-75.0) 06/11/18 05:11 Lymph % (Auto) 29.0 % (21.0-51.0) 06/11/18 05:11 [place] % (Auto) 8.0 % (0.0-13.0) 06/11/18 05:11 Eos % (Auto) 5.5 % (0.9-2.9) H 06/11/18 05:11 Baso % (Auto) 0.6 % (0.2-1.0) 06/11/18 05:11 Neut # (Auto) 4.3 x10^3/uL (2.2-4.8) 06/11/18 05:11 Lymph # (Auto) 2.2 X10^3/uL (1.3-2.9) 06/11/18 05:11 [place] # (Auto) 0.6 x10^3/uL (0.3-0.8) 06/11/18 05:11 Eos # (Auto) 0.4 x10^3/uL (0.0-0.2) H 06/11/18 05:11 Baso # (Auto) 0.0 X10^3/uL (0.0-0.1) 06/11/18 05:11 Absolute Nucleated RBC 0.0 /100WBC 06/11/18 05:11 Plt Morphology Comment Normal (NORMAL) 06/11/18 05:11 RBC Morphology Normal (NORMAL) 06/11/18 05:11 Sodium 133 mmol/L (136-145) L 06/11/18 05:11 Corrected Sodium 136 mmol/L (136-145) 06/11/18 05:11 Potassium 4.1 mmol/L (3.5-5.1) 06/11/18 05:11 Chloride 101 mmol/L (98-107) 06/11/18 05:11 Carbon Dioxide 22.7 mmol/L (21-32) 06/11/18 05:11 BUN 7 mg/dL (7-18) 06/11/18 05:11 Creatinine 1.18 mg/dL (0.70-1.30) 06/11/18 05:11 Est GFR (MDRD) Af Amer > 60 (>60) 06/11/18 05:11 Est GFR (MDRD) Non-Af > 60 (>60) 06/11/18 05:11 Glucose 239 mg/dL (65-99) H 06/11/18 05:11 POC Glucose (mg/dL) 241 mg/dL (65-99) H 06/11/18 05:53 Calcium 8.5 mg/dL (8.5-10.1) 06/11/18 05:11 Corrected Calcium 10.3 mg/dL (8.5-10.1) H 06/11/18 05:11 Total Bilirubin 0.70 mg/dL (0.2-1.0) 06/11/18 05:11 AST 28 Units/L (15-37) 06/11/18 05:11 ALT 12 Units/L (12-78) 06/11/18 05:11 Alkaline Phosphatase 31 Units/L (46-116) L 06/11/18 05:11 C-Reactive Protein 336.90 mg/L (0-3.0) H 06/07/18 20:25 Total Protein 6.8 g/dL (6.4-8.2) 06/11/18 05:11 Albumin 1.7 g/dL (3.4-5.0) L 06/11/18 05:11 Globulin 5.1 g/dL (2.5-4.5) H 06/11/18 05:11 Albumin/Globulin Ratio 0.3 Ratio (1.1-2.1) L 06/11/18 05:11 Vancomycin Trough 13.0 ug/mL (15-20) L 06/10/18 20:42 Random Vancomycin 2.7 ug/mL 06/09/18 12:37 Acetone, Semi-Quant Small (NEGATIVE) H 06/07/18 20:25 Tissue Pathology To follow 06/08/18 14:05 - Assessment and Plan 1: infected diabetic Lt foot foot with abscess and osteomyelitis involving most of the metatarsals . DM. diabetic neuropathy . anemia and hypoalbumenimia from the chronic and acute infection . will debride more and arrange for OP treatment via PIC line - Problem Patient Problems: Patient Problems Cellulitis of left foot (Acute) L03.116 Osteomyelitis (Acute) M86.9
[2018-06-11] MEDS: VANCOMYCIN HCL 1 GM VIAL 1 G in NS 250 ML IV 250 ML IV SCH ×2 (11:26→20:50)
[2018-06-11] MEDS: SNACK - Diabetic Appropriate PO SCH (20:00)
[2018-06-11] MEDS ORDERED: PHARMACY COMMENT IV NR (20:30)
[2018-06-11] MEDS: ULTRAM PO PRN (20:50)
[2018-06-12 05:23] LABS: BASOPHILS # (AUTO) 0.1 X10^3/uL (0.0-0.1); BASOPHILS % (AUTO) 0.8 % (0.2-1.0); EOSINOPHILS # (AUTO) 0.5 x10^3/uL (0.0-0.2); HEMATOCRIT 22.2 % (42.0-54.0); HEMOGLOBIN 7.8 g/dL (13.5-18.0); LYMPHOCYTES # (AUTO) 2.3 X10^3/uL (1.3-2.9); LYMPHOCYTES % (AUTO) 30.3 % (21.0-51.0); MEAN CORPUSCULAR HEMOGLOBIN 29.9 pg (27.0-34.0); MEAN CORPUSCULAR VOLUME 85.3 fL (80.0-100.0); MEAN PLATELET VOLUME 8.1 fL (7.4-11.0); MONOCYTES # (AUTO) 0.5 x10^3/uL (0.3-0.8); MONOCYTES % (AUTO) 6.8 % (0.0-13.0); NEUTROPHILS # (AUTO) 4.3 x10^3/uL (2.2-4.8); NEUTROPHILS % (AUTO) 56.1 % (42.0-75.0); PLATELET COUNT 277 X10^3/uL (150.0-450.0); RED BLOOD COUNT 2.61 X10^6/uL (4.7-6.0); RED CELL DISTRIBUTION WIDTH 12.6 % (11.6-16.5); WHITE BLOOD COUNT 7.7 X10^3/uL (3.6-10.0)
[2018-06-12 05:35] LABS: ALANINE AMINOTRANSFERASE 10 Units/L (12-78); ALBUMIN 1.6 g/dL (3.4-5.0); ALKALINE PHOSPHATASE 28 Units/L (46-116); ASPARTATE AMINO TRANSFERASE 12 Units/L (15-37); BLOOD UREA NITROGEN 8 mg/dL (7-18); CALCIUM 8.3 mg/dL (8.5-10.1); CARBON DIOXIDE 25.9 mmol/L (21-32); CHLORIDE 102 mmol/L (98-107); COR CA(FOR HYPOALB) 10.2 mg/dL (8.5-10.1); COR NA(FOR HYPERGLY) 139 mmol/L (136-145); SODIUM 134 mmol/L (136-145); TOTAL PROTEIN 6.1 g/dL (6.4-8.2); eGFR NON BLACK RACES > 60 (>60)
[2018-06-12] MEDS: ZOSYN VIAL 4.5 GRAMS 4.5 G in NS 100 ML IV + SPIKE MINIBAG* 100 ML IV SCH ×3 (06:09→23:50)
[2018-06-12] MEDS: NS 1000 ML 1,000 ML IV SCH ×4 (06:09→23:45)
[2018-06-12] MEDS: HumuLIN R SUBCUT PRN ×4 (06:09→20:55)
[2018-06-12 07:00] LABS: PLATELET MORPHOLOGY COMMENT NORMAL (NORMAL)
[2018-06-12] MEDS: ALBUMIN HUMAN 25%- 100 ML 100 ML IV SCH (08:30)
[2018-06-12] MEDS: CHECK PATCH XX SCH ×2 (08:33→21:00)
[2018-06-12] MEDS: NICOTINE PATCH TD SCH (08:33)
[2018-06-12] MEDS: VANCOMYCIN HCL 1 GM VIAL 1 G in NS 250 ML IV 250 ML IV SCH ×2 (10:00→21:58)
--- NOTE | 2018-06-12 14:56 | DR.PROGNOT ---
Hospital Progress Notes - Progress Note for Day of: Progress Note Date: 06/12/18 - Chief Complaint Chief Complaint: mild drainage from Lt foot ulcer . no new complaint,. WBC low 2.7..Hgb 7.9. Albumin 1.6 - Past Medical Family Social History Past Med/Fam/Surg Hx: No changes since H&P Allergies: Allergies No Known Drug Allergies Allergy (Verified 06/07/18 19:58) - Review Of Systems ROS: No change since H&P - Vital Signs Vital Signs: Temperature 97.5 F Pulse Rate [Right Radial] 74 Pulse Rate [Right] 92 Pulse Rate 113 Respiratory Rate 18 Blood Pressure [Right Arm] 167/87 Blood Pressure [Left Arm] 139/82 Blood Pressure 112/68 O2 Sat by Pulse Oximetry 95 - Physical Exam Oriented: Normal Eyes: Normal Ear: Normal Nose: Normal Throat: Normal Respiratory: Normal Cardiovascular: Normal. negative: S3, S4, Murmur : Normal GI:Auscultation: Normal GI:Palpation: Normal GI: Tenderness: Normal Skin: Wound (Lt foot ulcer is the same , 4 x 3 cm open area with exposed deeper structures .some associated necrosis around the edges .the whole foot is swollen frm the associated osteomyelitis ) Musculoskeletal: Left, Foot, Swelling, Tender Psychiatric: Normal Mood Description: Calm Affect: Normal Speech Pattern: Clear, Appropriate - Laboratory and Diagnostics Result Diagrams: 06/12/18 03:54 06/12/18 03:54 Labs: 06/08/18 14:13 Foot - Left Gram Stain - Final 06/08/18 14:13 Foot - Left Wound Culture - Preliminary 06/07/18 20:22 Foot - Left Gram Stain - Final 06/07/18 20:22 Foot - Left Wound Culture - Preliminary 06/08/18 08:36 Blood Blood Culture - Preliminary 06/08/18 08:28 Blood Blood Culture - Preliminary Laboratory WBC 7.7 X10^3/uL (3.6-10.0) 06/12/18 03:54 RBC 2.61 X10^6/uL (4.7-6.0) L 06/12/18 03:54 Hgb 7.8 g/dL (13.5-18.0) L 06/12/18 03:54 Hct 22.2 % (42.0-54.0) L 06/12/18 03:54 MCV 85.3 fL (80.0-100.0) 06/12/18 03:54 MCH 29.9 pg (27.0-34.0) 06/12/18 03:54 MCHC 35.0 g/dL (33.0-35.0) 06/12/18 03:54 RDW 12.6 % (11.6-16.5) 06/12/18 03:54 Plt Count 277 X10^3/uL (150.0-450.0) 06/12/18 03:54 Plt Count Comment Adequate (ADEQUATE) 06/12/18 03:54 MPV 8.1 fL (7.4-11.0) 06/12/18 03:54 Neut % (Auto) 56.1 % (42.0-75.0) 06/12/18 03:54 Lymph % (Auto) 30.3 % (21.0-51.0) 06/12/18 03:54 [place] % (Auto) 6.8 % (0.0-13.0) 06/12/18 03:54 Eos % (Auto) 6.0 % (0.9-2.9) H 06/12/18 03:54 Baso % (Auto) 0.8 % (0.2-1.0) 06/12/18 03:54 Neut # (Auto) 4.3 x10^3/uL (2.2-4.8) 06/12/18 03:54 Lymph # (Auto) 2.3 X10^3/uL (1.3-2.9) 06/12/18 03:54 [place] # (Auto) 0.5 x10^3/uL (0.3-0.8) 06/12/18 03:54 Eos # (Auto) 0.5 x10^3/uL (0.0-0.2) H 06/12/18 03:54 Baso # (Auto) 0.1 X10^3/uL (0.0-0.1) 06/12/18 03:54 Absolute Nucleated RBC 0.1 /100WBC 06/12/18 03:54 Plt Morphology Comment Normal (NORMAL) 06/12/18 03:54 RBC Morphology Normal (NORMAL) 06/12/18 03:54 Sodium 134 mmol/L (136-145) L 06/12/18 03:54 Corrected Sodium 139 mmol/L (136-145) 06/12/18 03:54 Potassium 3.9 mmol/L (3.5-5.1) 06/12/18 03:54 Chloride 102 mmol/L (98-107) 06/12/18 03:54 Carbon Dioxide 25.9 mmol/L (21-32) 06/12/18 03:54 BUN 8 mg/dL (7-18) 06/12/18 03:54 Creatinine 1.30 mg/dL (0.70-1.30) 06/12/18 03:54 Est GFR (MDRD) Af Amer > 60 (>60) 06/12/18 03:54 Est GFR (MDRD) Non-Af > 60 (>60) 06/12/18 03:54 Glucose 306 mg/dL (65-99) H 06/12/18 03:54 POC Glucose (mg/dL) 309 mg/dL (65-99) H 06/12/18 11:29 Calcium 8.3 mg/dL (8.5-10.1) L 06/12/18 03:54 Corrected Calcium 10.2 mg/dL (8.5-10.1) H 06/12/18 03:54 Total Bilirubin 0.40 mg/dL (0.2-1.0) 06/12/18 03:54 AST 12 Units/L (15-37) L 06/12/18 03:54 ALT 10 Units/L (12-78) L 06/12/18 03:54 Alkaline Phosphatase 28 Units/L (46-116) L 06/12/18 03:54 C-Reactive Protein 336.90 mg/L (0-3.0) H 06/07/18 20:25 Total Protein 6.1 g/dL (6.4-8.2) L 06/12/18 03:54 Albumin 1.6 g/dL (3.4-5.0) L 06/12/18 03:54 Globulin 4.5 g/dL (2.5-4.5) 06/12/18 03:54 Albumin/Globulin Ratio 0.4 Ratio (1.1-2.1) L 06/12/18 03:54 Vancomycin Trough 13.0 ug/mL (15-20) L 06/10/18 20:42 Random Vancomycin 2.7 ug/mL 06/09/18 12:37 Acetone, Semi-Quant Small (NEGATIVE) H 06/07/18 20:25 Tissue Pathology To follow 06/08/18 14:05 - Assessment and Plan 1: infected diabetic Lt foot foot with abscess and osteomyelitis involving most of the metatarsals . DM. diabetic neuropathy . anemia and hypoalbumenimia from the chronic and acute infection . will debride as needed and arrange for OP treatment via PIC line - Problem Patient Problems: Patient Problems Cellulitis of left foot (Acute) L03.116 Osteomyelitis (Acute) M86.9
--- NOTE | 2018-06-12 15:28 | PCM.PROG ---
Progress Note - Progress Note for Day of Date of Exam: 06/10/18 - Subjective Subjective: IS BEING TREATED FOR LEFT LOWER EXTREMITY CELLULITIS, A DIABETIC ULCER, AND OSTEOMYELITIS. TODAY, HE IS ALERT AND ORIENTED, SITTING UP IN BED ON MORNING ROUNDS. HE CONTINUES WITH COMPLAINTS OF LEFT FOOT PAIN. ON EXAMINATION, HEART IS REGULAR IN RATE AND RHYTHM. BILATERAL LUNGS ARE CLEAR TO AUSCULTATION. ABDOMEN IS ROUND, SOFT, AND NON-TENDER WITH NORMAL BOWEL SOUNDS NOTED IN ALL QUADRANTS. LEFT FOOT CONTINUES WITH ERYTHEMA AND EDEMA. NO DRAINAGE NOTED FROM WOUND AT THIS TIME. HIS VITALS THIS MORNING ARE 99.0-88-18- 97%-144/82. LABS WERE OBTAINED. ABNORMAL LAB VALUES INCLUDE THE FOLLOWING: RBC 2.79, HGB 8.3, HCT 23.6, SODIUM 133, GLUCOSE 239, ALK PHOS 31, ALBUMIN 1.7, GLOBULIN 5.1. PICC LINE WILL BE PLACED TODAY FOR AN EXTENDED COURSE OF IV ANTIBIOTICS. OTHERWISE, WE WILL CONTINUE WITH IV ANTIBIOTICS, WOUND CARE, AND CURRENT PLAN OF CARE TODAY. WE PLAN TO FOLLOW UP WITH AM LABS AND CONTINUE TO MONITOR PATIENT. WILL ALSO CONTINUE TO MONITOR PATIENT. - Past Medical Family Social History Past Med/Fam/Surg Hx: No changes since H&P Allergies: Allergies No Known Drug Allergies Allergy (Verified 06/07/18 19:58) - Review of Systems ROS: No change since H&P - Vital Signs and I&O's Vital Signs: Temperature 97.5 F Pulse Rate [Right Radial] 74 Pulse Rate [Right] 92 Pulse Rate 113 Respiratory Rate 18 Blood Pressure [Right Arm] 167/87 Blood Pressure [Left Arm] 139/82 Blood Pressure 112/68 O2 Sat by Pulse Oximetry 95 Intake and Output: Intake & Output 06/10/18 06/11/18 06/12/18 06/13/18 11:59 11:59 11:59 11:59 Intake Total 3048 / 3048 4240 / 4240 5834 / 5834 Output Total 1200 / 1200 1000 / 1000 1800 / 1800 Balance 1848 / 1848 3240 / 3240 4034 / 4034 - Physical Exam Oriented: Normal Eyes: Normal Ear: Normal Nose: Normal Throat: Normal Respiratory: Normal Cardiovascular: Normal. negative: S3, S4, Murmur : Normal Auscultation: Bowel Sounds: Normal Palpation: Normal Tenderness: Normal Skin: Wound (Lt foot ulcer is the same , 4 x 3 cm open area with exposed deeper structures .some associated necrosis around the edges .the whole foot is swollen frm the associated osteomyelitis ) Musculoskeletal: Left, Foot, Swelling, Tender Psychiatric: Normal Mood Description: Calm Affect: Normal Speech Pattern: Clear, Appropriate - Laboratory and Diagnostics Result Diagrams: 06/12/18 03:54 06/12/18 03:54 Labs: 06/08/18 14:13 Foot - Left Gram Stain - Final 06/08/18 14:13 Foot - Left Wound Culture - Preliminary 06/07/18 20:22 Foot - Left Gram Stain - Final 06/07/18 20:22 Foot - Left Wound Culture - Preliminary 06/08/18 08:36 Blood Blood Culture - Preliminary 06/08/18 08:28 Blood Blood Culture - Preliminary Laboratory WBC 7.7 X10^3/uL (3.6-10.0) 06/12/18 03:54 RBC 2.61 X10^6/uL (4.7-6.0) L 06/12/18 03:54 Hgb 7.8 g/dL (13.5-18.0) L 06/12/18 03:54 Hct 22.2 % (42.0-54.0) L 06/12/18 03:54 MCV 85.3 fL (80.0-100.0) 06/12/18 03:54 MCH 29.9 pg (27.0-34.0) 06/12/18 03:54 MCHC 35.0 g/dL (33.0-35.0) 06/12/18 03:54 RDW 12.6 % (11.6-16.5) 06/12/18 03:54 Plt Count 277 X10^3/uL (150.0-450.0) 06/12/18 03:54 Plt Count Comment Adequate (ADEQUATE) 06/12/18 03:54 MPV 8.1 fL (7.4-11.0) 06/12/18 03:54 Neut % (Auto) 56.1 % (42.0-75.0) 06/12/18 03:54 Lymph % (Auto) 30.3 % (21.0-51.0) 06/12/18 03:54 [place] % (Auto) 6.8 % (0.0-13.0) 06/12/18 03:54 Eos % (Auto) 6.0 % (0.9-2.9) H 06/12/18 03:54 Baso % (Auto) 0.8 % (0.2-1.0) 06/12/18 03:54 Neut # (Auto) 4.3 x10^3/uL (2.2-4.8) 06/12/18 03:54 Lymph # (Auto) 2.3 X10^3/uL (1.3-2.9) 06/12/18 03:54 [place] # (Auto) 0.5 x10^3/uL (0.3-0.8) 06/12/18 03:54 Eos # (Auto) 0.5 x10^3/uL (0.0-0.2) H 06/12/18 03:54 Baso # (Auto) 0.1 X10^3/uL (0.0-0.1) 06/12/18 03:54 Absolute Nucleated RBC 0.1 /100WBC 06/12/18 03:54 Plt Morphology Comment Normal (NORMAL) 06/12/18 03:54 RBC Morphology Normal (NORMAL) 06/12/18 03:54 Sodium 134 mmol/L (136-145) L 06/12/18 03:54 Corrected Sodium 139 mmol/L (136-145) 06/12/18 03:54 Potassium 3.9 mmol/L (3.5-5.1) 06/12/18 03:54 Chloride 102 mmol/L (98-107) 06/12/18 03:54 Carbon Dioxide 25.9 mmol/L (21-32) 06/12/18 03:54 BUN 8 mg/dL (7-18) 06/12/18 03:54 Creatinine 1.30 mg/dL (0.70-1.30) 06/12/18 03:54 Est GFR (MDRD) Af Amer > 60 (>60) 06/12/18 03:54 Est GFR (MDRD) Non-Af > 60 (>60) 06/12/18 03:54 Glucose 306 mg/dL (65-99) H 06/12/18 03:54 POC Glucose (mg/dL) 309 mg/dL (65-99) H 06/12/18 11:29 Calcium 8.3 mg/dL (8.5-10.1) L 06/12/18 03:54 Corrected Calcium 10.2 mg/dL (8.5-10.1) H 06/12/18 03:54 Total Bilirubin 0.40 mg/dL (0.2-1.0) 06/12/18 03:54 AST 12 Units/L (15-37) L 06/12/18 03:54 ALT 10 Units/L (12-78) L 06/12/18 03:54 Alkaline Phosphatase 28 Units/L (46-116) L 06/12/18 03:54 C-Reactive Protein 336.90 mg/L (0-3.0) H 06/07/18 20:25 Total Protein 6.1 g/dL (6.4-8.2) L 06/12/18 03:54 Albumin 1.6 g/dL (3.4-5.0) L 06/12/18 03:54 Globulin 4.5 g/dL (2.5-4.5) 06/12/18 03:54 Albumin/Globulin Ratio 0.4 Ratio (1.1-2.1) L 06/12/18 03:54 Vancomycin Trough 13.0 ug/mL (15-20) L 06/10/18 20:42 Random Vancomycin 2.7 ug/mL 06/09/18 12:37 Acetone, Semi-Quant Small (NEGATIVE) H 06/07/18 20:25 Tissue Pathology To follow 06/08/18 14:05 - Plan (1) Cellulitis of left foot Status: Acute Plan: IV ANTIBIOTICS, WOUND CARE, I&D, CONTINUE TO MONITOR (2) Osteomyelitis Status: Acute Qualifiers: Osteomyelitis type: other acute Osteomyelitis location: foot Laterality: left Qualified Code(s): M86.172 - Other acute osteomyelitis, left ankle and foot Plan: INSERT PICC LINE TODAY, IV ANTIBIOTICS, WOUND CARE, CONTINUE TO MONITOR
[2018-06-12] MEDS: SNACK - Diabetic Appropriate PO SCH (20:00)
[2018-06-12 21:32] LABS: CREATININE 1.55 mg/dL (0.70-1.30); VANCOMYCIN,TROUGH 14.2 ug/mL (15-20)
[2018-06-13 05:32] LABS: ALANINE AMINOTRANSFERASE 10 Units/L (12-78); ALBUMIN 1.7 g/dL (3.4-5.0); ALKALINE PHOSPHATASE 22 Units/L (46-116); ASPARTATE AMINO TRANSFERASE 13 Units/L (15-37); BLOOD UREA NITROGEN 5 mg/dL (7-18); CALCIUM 8.3 mg/dL (8.5-10.1); CARBON DIOXIDE 26.3 mmol/L (21-32); CHLORIDE 104 mmol/L (98-107); COR CA(FOR HYPOALB) 10.1 mg/dL (8.5-10.1); COR NA(FOR HYPERGLY) 140 mmol/L (136-145); CREATININE 1.24 mg/dL (0.70-1.30); SODIUM 137 mmol/L (136-145); eGFR NON BLACK RACES > 60 (>60)
[2018-06-13 05:43] LABS: BASOPHILS # (AUTO) 0.1 X10^3/uL (0.0-0.1); BASOPHILS % (AUTO) 0.9 % (0.2-1.0); EOSINOPHILS # (AUTO) 0.4 x10^3/uL (0.0-0.2); EOSINOPHILS % (AUTO) 5.7 % (0.9-2.9); HEMATOCRIT 21.7 % (42.0-54.0); HEMOGLOBIN 7.5 g/dL (13.5-18.0); LYMPHOCYTES # (AUTO) 2.1 X10^3/uL (1.3-2.9); LYMPHOCYTES % (AUTO) 28.9 % (21.0-51.0); MEAN CORPUSCULAR HEMOGLOBIN 29.1 pg (27.0-34.0); MEAN CORPUSCULAR HGB CONC 34.6 g/dL (33.0-35.0); MEAN PLATELET VOLUME 8.1 fL (7.4-11.0); MONOCYTES # (AUTO) 0.5 x10^3/uL (0.3-0.8); NEUTROPHILS # (AUTO) 4.3 x10^3/uL (2.2-4.8); NEUTROPHILS % (AUTO) 57.5 % (42.0-75.0); PLATELET COUNT 230 X10^3/uL (150.0-450.0); RED BLOOD COUNT 2.58 X10^6/uL (4.7-6.0); RED CELL DISTRIBUTION WIDTH 12.7 % (11.6-16.5); WHITE BLOOD COUNT 7.4 X10^3/uL (3.6-10.0)
[2018-06-13] MEDS: HumuLIN R SUBCUT PRN ×2 (06:05→12:06)
[2018-06-13] MEDS: ZOSYN VIAL 4.5 GRAMS 4.5 G in NS 100 ML IV + SPIKE MINIBAG* 100 ML IV SCH (06:15)
[2018-06-13 06:29] LABS: PLATELET MORPHOLOGY COMMENT NORMAL (NORMAL)
--- NOTE | 2018-06-13 08:30 | PCM.PROG ---
Progress Note - Progress Note for Day of Date of Exam: 06/12/18 - Subjective Subjective: IS BEING TREATED FOR LEFT LOWER EXTREMITY CELLULITIS, A DIABETIC ULCER, AND OSTEOMYELITIS. TODAY, HE IS ALERT AND ORIENTED, SITTING UP IN BED ON MORNING ROUNDS. HE CONTINUES WITH COMPLAINTS OF LEFT FOOT PAIN. ON EXAMINATION, HEART IS REGULAR IN RATE AND RHYTHM. BILATERAL LUNGS ARE CLEAR TO AUSCULTATION. ABDOMEN IS ROUND, SOFT, AND NON-TENDER WITH NORMAL BOWEL SOUNDS NOTED IN ALL QUADRANTS. LEFT FOOT CONTINUES WITH ERYTHEMA AND EDEMA. NO DRAINAGE NOTED FROM WOUND AT THIS TIME. PT TO HAVE PICC LINE PLACEMENT FOR OP IV ATBX THERAPY, CASE MANAGEMENT CONSULT FOR PLANS FOR DISHCARGE. WE WILL CONTINUE WITH IV ANTIBIOTICS, WOUND CARE, AND CURRENT PLAN OF CARE TODAY. WILL ALSO CONTINUE TO MONITOR PATIENT. - Past Medical Family Social History Past Med/Fam/Surg Hx: No changes since H&P Allergies: Allergies No Known Drug Allergies Allergy (Verified 06/07/18 19:58) - Review of Systems ROS: No change since H&P - Vital Signs and I&O's Vital Signs: Temperature 98.9 F Pulse Rate [Right Radial] 79 Pulse Rate [Right] 92 Pulse Rate 113 Respiratory Rate 22 Blood Pressure [Right Arm] 160/91 Blood Pressure [Left Arm] 139/82 Blood Pressure 112/68 O2 Sat by Pulse Oximetry 99 Intake and Output: Intake & Output 06/10/18 06/11/18 06/12/18 06/13/18 11:59 11:59 11:59 11:59 Intake Total 3048 / 3048 4240 / 4240 5834 / 5834 5399 / 5399 Output Total 1200 / 1200 1000 / 1000 1800 / 1800 1400 / 1400 Balance 1848 / 1848 3240 / 3240 4034 / 4034 3999 / 3999 - Physical Exam Oriented: Normal Eyes: Normal Ear: Normal Nose: Normal Throat: Normal Respiratory: Normal Cardiovascular: Normal. negative: S3, S4, Murmur : Normal Auscultation: Bowel Sounds: Normal Tenderness: Normal Skin: Wound (Lt foot ulcer is the same , 4 x 3 cm open area with exposed deeper structures .some associated necrosis around the edges .the whole foot is swollen frm the associated osteomyelitis ) Musculoskeletal: Left, Foot, Swelling, Tender Psychiatric: Normal Mood Description: Calm Affect: Normal Speech Pattern: Clear, Appropriate - Laboratory and Diagnostics Result Diagrams: 06/13/18 04:45 06/13/18 04:45 Labs: 06/08/18 14:13 Foot - Left Gram Stain - Final 06/08/18 14:13 Foot - Left Wound Culture - Preliminary 06/07/18 20:22 Foot - Left Gram Stain - Final 06/07/18 20:22 Foot - Left Wound Culture - Preliminary 06/08/18 08:36 Blood Blood Culture - Preliminary 06/08/18 08:28 Blood Blood Culture - Preliminary Laboratory WBC 7.4 X10^3/uL (3.6-10.0) 06/13/18 04:45 RBC 2.58 X10^6/uL (4.7-6.0) L 06/13/18 04:45 Hgb 7.5 g/dL (13.5-18.0) L 06/13/18 04:45 Hct 21.7 % (42.0-54.0) L 06/13/18 04:45 MCV 84.0 fL (80.0-100.0) 06/13/18 04:45 MCH 29.1 pg (27.0-34.0) 06/13/18 04:45 MCHC 34.6 g/dL (33.0-35.0) 06/13/18 04:45 RDW 12.7 % (11.6-16.5) 06/13/18 04:45 Plt Count 230 X10^3/uL (150.0-450.0) 06/13/18 04:45 Plt Count Comment Adequate (ADEQUATE) 06/13/18 04:45 MPV 8.1 fL (7.4-11.0) 06/13/18 04:45 Neut % (Auto) 57.5 % (42.0-75.0) 06/13/18 04:45 Lymph % (Auto) 28.9 % (21.0-51.0) 06/13/18 04:45 [place] % (Auto) 7.0 % (0.0-13.0) 06/13/18 04:45 Eos % (Auto) 5.7 % (0.9-2.9) H 06/13/18 04:45 Baso % (Auto) 0.9 % (0.2-1.0) 06/13/18 04:45 Neut # (Auto) 4.3 x10^3/uL (2.2-4.8) 06/13/18 04:45 Lymph # (Auto) 2.1 X10^3/uL (1.3-2.9) 06/13/18 04:45 [place] # (Auto) 0.5 x10^3/uL (0.3-0.8) 06/13/18 04:45 Eos # (Auto) 0.4 x10^3/uL (0.0-0.2) H 06/13/18 04:45 Baso # (Auto) 0.1 X10^3/uL (0.0-0.1) 06/13/18 04:45 Absolute Nucleated RBC 0.0 /100WBC 06/13/18 04:45 Plt Morphology Comment Normal (NORMAL) 06/13/18 04:45 RBC Morphology Normal (NORMAL) 06/13/18 04:45 Sodium 137 mmol/L (136-145) 06/13/18 04:45 Corrected Sodium 140 mmol/L (136-145) 06/13/18 04:45 Potassium 3.8 mmol/L (3.5-5.1) 06/13/18 04:45 Chloride 104 mmol/L (98-107) 06/13/18 04:45 Carbon Dioxide 26.3 mmol/L (21-32) 06/13/18 04:45 BUN 5 mg/dL (7-18) L 06/13/18 04:45 Creatinine 1.24 mg/dL (0.70-1.30) 06/13/18 04:45 Est GFR (MDRD) Af Amer > 60 (>60) 06/13/18 04:45 Est GFR (MDRD) Non-Af > 60 (>60) 06/13/18 04:45 Glucose 238 mg/dL (65-99) H 06/13/18 04:45 POC Glucose (mg/dL) 204 mg/dL (65-99) H 06/13/18 05:44 Calcium 8.3 mg/dL (8.5-10.1) L 06/13/18 04:45 Corrected Calcium 10.1 mg/dL (8.5-10.1) 06/13/18 04:45 Total Bilirubin 0.40 mg/dL (0.2-1.0) 06/13/18 04:45 AST 13 Units/L (15-37) L 06/13/18 04:45 ALT 10 Units/L (12-78) L 06/13/18 04:45 Alkaline Phosphatase 22 Units/L (46-116) L 06/13/18 04:45 C-Reactive Protein 336.90 mg/L (0-3.0) H 06/07/18 20:25 Total Protein 6.0 g/dL (6.4-8.2) L 06/13/18 04:45 Albumin 1.7 g/dL (3.4-5.0) L 06/13/18 04:45 Globulin 4.3 g/dL (2.5-4.5) 06/13/18 04:45 Albumin/Globulin Ratio 0.4 Ratio (1.1-2.1) L 06/13/18 04:45 Vancomycin Trough 14.2 ug/mL (15-20) L 06/12/18 21:10 Random Vancomycin 2.7 ug/mL 06/09/18 12:37 Acetone, Semi-Quant Small (NEGATIVE) H 06/07/18 20:25 Tissue Pathology To follow 06/08/18 14:05 - Plan (1) Osteomyelitis Status: Acute Qualifiers: Osteomyelitis type: other acute Osteomyelitis location: foot Laterality: left Qualified Code(s): M86.172 - Other acute osteomyelitis, left ankle and foot Plan: INSERT PICC LINE TODAY, IV ANTIBIOTICS, WOUND CARE, CONTINUE TO MONITOR (2) Cellulitis of left foot Status: Acute Plan: IV ANTIBIOTICS, WOUND CARE, I&D, CONTINUE TO MONITOR (3) Diabetes Status: Acute
[2018-06-13] MEDS: NS 1000 ML 1,000 ML IV SCH (09:31)
[2018-06-13] MEDS: ALBUMIN HUMAN 25%- 100 ML 100 ML IV SCH (09:33)
[2018-06-13] MEDS: VANCOMYCIN HCL 1 GM VIAL 1 G in NS 250 ML IV 250 ML IV SCH (09:34)
[2018-06-13] MEDS: CHECK PATCH XX SCH (09:37)
[2018-06-13] MEDS: NICOTINE PATCH TD SCH (09:37)
[2018-06-13 13:07] VITALS: BP 175/95
--- NOTE | 2018-07-07 12:08 | DR.CW ---
HPI PCP Primary Care Physician: NFD Complaint Chief Complaint:: LEFT FOOT GREAT TOE AMPUTATED WHILE INCARCERATED AT [facility] IN JANUARY 2018. PATIENT RELEASED FROM INCARCERATION ON April, FOLLOWED UP HERE IN ER ON May-SEEN BY FOR A CHECK UP ON TOE. CHECK UP GOOD. PATIENT NOW HAS A DIABETIC ULCER ON THE SIDE OF LEFT FOOT , DRAINING. PATIENT STATES, "THIS WAS NOT HERE WHEN SEEN ME, OTHER THAN JUST THIS SMALL SPOT RIGHT BELOW MY PINKY TOE." PATIENT HAS ORTHO POST OP SHOE INTACT WITH A TOWEL WRAPPED OVER FOOT. REMAINDER OF FOOT REDNESS, WARM TO TOUCH, EDEMA. Onset of Chief Complaint: 06/07/18 Source History Provided: Patient Mode of Arrival Mode of Arrival: Ambulatory PMH PMH Past Medical History: Yes Past Medical History: Diabetes, Dyslipidemia, Hypertension and Seizures Past Surgical History: Yes Past Surgical History Comment: LEFT FOOT GREAT TOE AMPUTEE IN JANUARY 2018 Family History History of Family Medical Conditions: Yes Family Medical History: Heart Failure and Sudden Cardiac Social History Type of Tobacco Use: Cigarettes Alcohol Use: None Do you use any recreational Drugs:: Yes (THC) Lives With: Spouse Lives Where: Home infectious screening Have you traveled outside the country in the last 6 months?: No Isolation: Standard ROS Review of Systems Constitutional: See HPI; negative Diaphoresis, Fever, Malaise and Weakness Respiratoy: No Symptoms Reported Neurological: No Symptoms Reported Musculoskeletal: See HPI PE Vital Signs Vitals: Temperature 97.4 F Pulse Rate [Right Radial] 77 Pulse Rate [Right] 92 Pulse Rate 113 Respiratory Rate 20 Blood Pressure [Right Arm] 175/95 Blood Pressure [Left Arm] 139/82 Blood Pressure 112/68 O2 Sat by Pulse Oximetry 99 General Limitations: Physical Limitation (Diabetic foot ulcer left foot); negative Language Barrier General Appearance: Alert and In No Apparent Distress Head Head Exam: Normal Inspection, Atraumatic and Normocephalic Eyes Eye exam: Normal Appearance, PERRL and EOMI ENT ENT Exam: Normal Exam, Normal Oropharynx, Normal External Ear Exam, Mucous Membranes Moist and TM's Normal Bilaterally Neck Neck Exam: Normal Inspection, Full ROM and Trachea Midline; negative Tenderness , Meningismus, Lymphadenopathy and Thyromegaly Chest Chest Inspection: Rash (diabetic left foot ucler, drainage) Expanded Chest Exam: Wound (Draining left foot diabetic ulcer); negative Crepitus, Laceration, Abrasion, Ecchymosis and Surgical Incision Respiratory Respiratory Exam: Normal Lung Sounds Bilat; negative Accessory Muscle Use, Chest Wall Tenderness, Prolonged Expiratory Phase and Respiratory Distress Respiratory Exam: Bilateral: Clear to Auscultation Cardiovascular Cardiovascular Exam: Regular Rate and Normal Rhythm Abdominal Exam Abdominal Exam: Normal Inspection, Normal Bowel Sounds, Soft and Hypoactive Bowel Sounds; negative Organomegaly, Trauma, Mass, Bruit and Pulsatile Mass Abdominal Tenderness: negative RUQ, LLQ, Epigastrium and Suprapubic Extremities Extremities Exam: Tenderness (left foot with weeping superficial ulcers), Edema and Joint Swelling; negative Calf Tenderness Back Back Exam: Normal Inspection; negative Full ROM, (R) CVA Tenderness, (L) CVA Tenderness, Muscle Spasm, Paraspinal Tenderness, Vertebral Tenderness, (R) Sciatic Notch Tenderness, (L) Sciatic Notch Tendern and (R) Straight Leg Raise Neurologic Neurological Exam: Alert, Oriented X3, CN II-XII Intact and Normal Gait (limp, unable to bear weight right foot) Psychiatric Psychiatric Exam: Normal Affect, Normal Mood, Depressed and Flat Affect; negative Agitated, Manic, Homicidal Ideation and Suicidal Ideation Skin Skin Exam: Warm, Dry (left foot ) and Erythema; negative Intact (left foot with ulcers) Type of Lesion: Rash and Other (diabetic ulcer) Distribution: LLE Description: Size (anterior/medial left foot), Tenderness, Swelling, Vesicular, Crusting, Discharge and Indurated COURSE Treatment Treatment: Culture, antibiotic, hyperglycemic control Reevaluation 1st: Unchanged ROR Labs Reviewed Result Diagrams: 06/13/18 04:45 06/13/18 04:45 Laboratory: 06/07/18 20:22 Foot - Left Gram Stain - Final 06/07/18 20:22 Foot - Left Wound Culture - Final 06/08/18 14:13 Foot - Left Gram Stain - Final 06/08/18 14:13 Foot - Left Wound Culture - Final 06/08/18 08:36 Blood Blood Culture - Final 06/08/18 08:28 Blood Blood Culture - Final WBC 7.4 X10^3/uL (3.6-10.0) 06/13/18 04:45 RBC 2.58 X10^6/uL (4.7-6.0) L 06/13/18 04:45 Hgb 7.5 g/dL (13.5-18.0) L 06/13/18 04:45 Hct 21.7 % (42.0-54.0) L 06/13/18 04:45 MCV 84.0 fL (80.0-100.0) 06/13/18 04:45 MCH 29.1 pg (27.0-34.0) 06/13/18 04:45 MCHC 34.6 g/dL (33.0-35.0) 06/13/18 04:45 RDW 12.7 % (11.6-16.5) 06/13/18 04:45 Plt Count 230 X10^3/uL (150.0-450.0) 06/13/18 04:45 Plt Count Comment Adequate (ADEQUATE) 06/13/18 04:45 MPV 8.1 fL (7.4-11.0) 06/13/18 04:45 Neut % (Auto) 57.5 % (42.0-75.0) 06/13/18 04:45 Lymph % (Auto) 28.9 % (21.0-51.0) 06/13/18 04:45 [place]val % (Auto) 7.0 % (0.0-13.0) 06/13/18 04:45 Eos % (Auto) 5.7 % (0.9-2.9) H 06/13/18 04:45 Baso % (Auto) 0.9 % (0.2-1.0) 06/13/18 04:45 Neut # (Auto) 4.3 x10^3/uL (2.2-4.8) 06/13/18 04:45 Lymph # (Auto) 2.1 X10^3/uL (1.3-2.9) 06/13/18 04:45 Duval # (Auto) 0.5 x10^3/uL (0.3-0.8) 06/13/18 04:45 Eos # (Auto) 0.4 x10^3/uL (0.0-0.2) H 06/13/18 04:45 Baso # (Auto) 0.1 X10^3/uL (0.0-0.1) 06/13/18 04:45 Absolute Nucleated RBC 0.0 /100WBC 06/13/18 04:45 Plt Morphology Comment Normal (NORMAL) 06/13/18 04:45 RBC Morphology Normal (NORMAL) 06/13/18 04:45 Sodium 137 mmol/L (136-145) 06/13/18 04:45 Corrected Sodium 140 mmol/L (136-145) 06/13/18 04:45 Potassium 3.8 mmol/L (3.5-5.1) 06/13/18 04:45 Chloride 104 mmol/L (98-107) 06/13/18 04:45 Carbon Dioxide 26.3 mmol/L (21-32) 06/13/18 04:45 BUN 5 mg/dL (7-18) L 06/13/18 04:45 Creatinine 1.24 mg/dL (0.70-1.30) 06/13/18 04:45 Est GFR (MDRD) Af Amer > 60 (>60) 06/13/18 04:45 Est GFR (MDRD) Non-Af > 60 (>60) 06/13/18 04:45 Glucose 238 mg/dL (65-99) H 06/13/18 04:45 POC Glucose (mg/dL) 288 mg/dL (65-99) H 06/13/18 12:01 Calcium 8.3 mg/dL (8.5-10.1) L 06/13/18 04:45 Corrected Calcium 10.1 mg/dL (8.5-10.1) 06/13/18 04:45 Total Bilirubin 0.40 mg/dL (0.2-1.0) 06/13/18 04:45 AST 13 Units/L (15-37) L 06/13/18 04:45 ALT 10 Units/L (12-78) L 06/13/18 04:45 Alkaline Phosphatase 22 Units/L (46-116) L 06/13/18 04:45 C-Reactive Protein 336.90 mg/L (0-3.0) H 06/07/18 20:25 Total Protein 6.0 g/dL (6.4-8.2) L 06/13/18 04:45 Albumin 1.7 g/dL (3.4-5.0) L 06/13/18 04:45 Globulin 4.3 g/dL (2.5-4.5) 06/13/18 04:45 Albumin/Globulin Ratio 0.4 Ratio (1.1-2.1) L 06/13/18 04:45 Vancomycin Trough 14.2 ug/mL (15-20) L 06/12/18 21:10 Random Vancomycin 2.7 ug/mL 06/09/18 12:37 Acetone, Semi-Quant Small (NEGATIVE) H 06/07/18 20:25 Tissue Pathology To follow 06/08/18 14:05 Instructions Instructions: Steps to Quit Smoking, [id number] Bone and Joint Infections, Adult Smoking Tobacco Information Type 2 Diabetes Mellitus, Diagnosis, Adult, [id number] Forms: Patient Portal
--- NOTE | 2018-07-11 10:57 | DR.EXTPAIN ---
HPI Time seen Time seen: 12:45 PCP Primary Care Physician: KELLY Complaint/Symptoms Chief Complaint:: LEFT FOOT GREAT TOE AMPUTATED WHILE INCARCERATED AT [facility] IN JANUARY 2018. PATIENT RELEASED FROM INCARCERATION ON April, FOLLOWED UP HERE IN ER ON May-SEEN BY FOR A CHECK UP ON TOE. CHECK UP GOOD. PATIENT NOW HAS A DIABETIC ULCER ON THE SIDE OF LEFT FOOT , DRAINING. PATIENT STATES, "THIS WAS NOT HERE WHEN SEEN ME, OTHER THAN JUST THIS SMALL SPOT RIGHT BELOW MY PINKY TOE." PATIENT HAS ORTHO POST OP SHOE INTACT WITH A TOWEL WRAPPED OVER FOOT. REMAINDER OF FOOT REDNESS, WARM TO TOUCH, EDEMA. Source History Provided: Patient Mode of arrival Mode of Arrival: Ambulatory Timing Onset of Chief Complaint: 06/07/18 PMH PMH Past Medical History: Yes Past Medical History: Diabetes, Dyslipidemia, Hypertension and Seizures Past Surgical History: Yes Past Surgical History Comment: LEFT FOOT GREAT TOE AMPUTEE IN JANUARY 2018 Family History History of Family Medical Conditions: Yes Family Medical History: Heart Failure and Sudden Cardiac Social History Does patient currently use any type of tobacco product: Yes Have you used tobacco products in the last 12 months: Yes Type of Tobacco Use: Cigarettes Alcohol Use: None Do you use any recreational Drugs:: Yes (THC) Lives With: Spouse Lives Where: Home infectious screening Have you traveled outside the country in the last 6 months?: No Isolation: Standard PE Vital Signs Vitals: Temperature 97.4 F Pulse Rate [Right Radial] 77 Pulse Rate [Right] 92 Pulse Rate 113 Respiratory Rate 20 Blood Pressure [Right Arm] 175/95 Blood Pressure [Left Arm] 139/82 Blood Pressure 112/68 O2 Sat by Pulse Oximetry 99 General General Appearance: Alert and In No Apparent Distress Head Head Exam: Normal Inspection, Atraumatic and Normocephalic Eyes Eye exam: Normal Appearance, PERRL and EOMI ENT ENT Exam: Normal Exam and Normal External Ear Exam Neck Neck Exam: Full ROM Chest Chest Inspection: Normal Inspection Respiratory Respiratory Exam: Normal Lung Sounds Bilat; negative Prolonged Expiratory Phase and Respiratory Distress Respiratory Exam: Bilateral: Clear to Auscultation Cardiovascular Cardiovascular Exam: Regular Rate and Normal Rhythm Abdominal Exam Abdominal Exam: Normal Inspection, Normal Bowel Sounds and Soft; negative Hyperactive Bowel Sounds and Hypoactive Bowel Sounds Abdominal Tenderness: Moderate; negative RUQ, RLQ and LUQ Extremities Extremities Exam: Edema (diabetic right foot with edema excoriated ulcer); negative Calf Tenderness Upper Extremities Shoulder Exam: Normal Inspection and Full ROM Arm Exam: Normal Inspection and Full ROM Elbow Exam: Normal Inspection Forearm Exam: Full ROM Hand Exam: Normal Inspection and Full ROM Neurosensory Exam: Normal Exam Upper Ext. Vascular Exam: Capillary Refill Lower Extremities Hip/Pelvis Exam: Normal Inspection Foot/Toe Exam: Swelling, Deformity (diabetic foot ulcer/ erythema) and Erythema Gait Exam: Observed and Normal Neurological Neurological Exam: Alert, Oriented X3 and CN II-XII Intact Psychiatric Psychiatric Exam: Normal Affect and Normal Mood Skin Skin Exam: Warm, Dry, Normal Color (erythematous diabetic ulcer) and Erythema ROR Labs Reviewed Result Diagrams: 06/13/18 04:45 06/13/18 04:45 Laboratory: 06/07/18 20:22 Foot - Left Gram Stain - Final 06/07/18 20:22 Foot - Left Wound Culture - Final 06/08/18 14:13 Foot - Left Gram Stain - Final 06/08/18 14:13 Foot - Left Wound Culture - Final 06/08/18 08:36 Blood Blood Culture - Final 06/08/18 08:28 Blood Blood Culture - Final WBC 7.4 X10^3/uL (3.6-10.0) 06/13/18 04:45 RBC 2.58 X10^6/uL (4.7-6.0) L 06/13/18 04:45 Hgb 7.5 g/dL (13.5-18.0) L 06/13/18 04:45 Hct 21.7 % (42.0-54.0) L 06/13/18 04:45 MCV 84.0 fL (80.0-100.0) 06/13/18 04:45 MCH 29.1 pg (27.0-34.0) 06/13/18 04:45 MCHC 34.6 g/dL (33.0-35.0) 06/13/18 04:45 RDW 12.7 % (11.6-16.5) 06/13/18 04:45 Plt Count 230 X10^3/uL (150.0-450.0) 06/13/18 04:45 Plt Count Comment Adequate (ADEQUATE) 06/13/18 04:45 MPV 8.1 fL (7.4-11.0) 06/13/18 04:45 Neut % (Auto) 57.5 % (42.0-75.0) 06/13/18 04:45 Lymph % (Auto) 28.9 % (21.0-51.0) 06/13/18 04:45 [place] % (Auto) 7.0 % (0.0-13.0) 06/13/18 04:45 Eos % (Auto) 5.7 % (0.9-2.9) H 06/13/18 04:45 Baso % (Auto) 0.9 % (0.2-1.0) 06/13/18 04:45 Neut # (Auto) 4.3 x10^3/uL (2.2-4.8) 06/13/18 04:45 Lymph # (Auto) 2.1 X10^3/uL (1.3-2.9) 06/13/18 04:45 [place] # (Auto) 0.5 x10^3/uL (0.3-0.8) 06/13/18 04:45 Eos # (Auto) 0.4 x10^3/uL (0.0-0.2) H 06/13/18 04:45 Baso # (Auto) 0.1 X10^3/uL (0.0-0.1) 06/13/18 04:45 Absolute Nucleated RBC 0.0 /100WBC 06/13/18 04:45 Plt Morphology Comment Normal (NORMAL) 06/13/18 04:45 RBC Morphology Normal (NORMAL) 06/13/18 04:45 Sodium 137 mmol/L (136-145) 06/13/18 04:45 Corrected Sodium 140 mmol/L (136-145) 06/13/18 04:45 Potassium 3.8 mmol/L (3.5-5.1) 06/13/18 04:45 Chloride 104 mmol/L (98-107) 06/13/18 04:45 Carbon Dioxide 26.3 mmol/L (21-32) 06/13/18 04:45 BUN 5 mg/dL (7-18) L 06/13/18 04:45 Creatinine 1.24 mg/dL (0.70-1.30) 06/13/18 04:45 Est GFR (MDRD) Af Amer > 60 (>60) 06/13/18 04:45 Est GFR (MDRD) Non-Af > 60 (>60) 06/13/18 04:45 Glucose 238 mg/dL (65-99) H 06/13/18 04:45 POC Glucose (mg/dL) 288 mg/dL (65-99) H 06/13/18 12:01 Calcium 8.3 mg/dL (8.5-10.1) L 06/13/18 04:45 Corrected Calcium 10.1 mg/dL (8.5-10.1) 06/13/18 04:45 Total Bilirubin 0.40 mg/dL (0.2-1.0) 06/13/18 04:45 AST 13 Units/L (15-37) L 06/13/18 04:45 ALT 10 Units/L (12-78) L 06/13/18 04:45 Alkaline Phosphatase 22 Units/L (46-116) L 06/13/18 04:45 C-Reactive Protein 336.90 mg/L (0-3.0) H 06/07/18 20:25 Total Protein 6.0 g/dL (6.4-8.2) L 06/13/18 04:45 Albumin 1.7 g/dL (3.4-5.0) L 06/13/18 04:45 Globulin 4.3 g/dL (2.5-4.5) 06/13/18 04:45 Albumin/Globulin Ratio 0.4 Ratio (1.1-2.1) L 06/13/18 04:45 Vancomycin Trough 14.2 ug/mL (15-20) L 06/12/18 21:10 Random Vancomycin 2.7 ug/mL 06/09/18 12:37 Acetone, Semi-Quant Small (NEGATIVE) H 06/07/18 20:25 Tissue Pathology To follow 06/08/18 14:05 Instructions Instructions: Steps to Quit Smoking, Ejuv-va-Lain Bone and Joint Infections, Adult Smoking Tobacco Information Type 2 Diabetes Mellitus, Diagnosis, Adult, [id number] Forms: Patient Portal
--- NOTE | 2018-07-11 23:07 | DR.CARTERD ---
- Discharge Summary for: Discharge Summary for Date of:: 06/13/18 - Admission Date Date of Admission: 06/08/18 - Admission Diagnoses Admission Diagnosis: (1) Cellulitis of left foot - Discharge Date Discharge Date: 06/13/18 - Discharge Diagnoses Discharge Diagnosis: (1) Osteomyelitis (2) Cellulitis of left foot (3) Diabetes - Hospital Course Hospital Course: Day one, Mr. Drake is a 47 year old black male who presented to the emergency room complaining of left foot redness, warmth, edema, and a wound to the left side of foot. Patient reported that his great toe was amputated in January while he incarcerated at [facility]. Patient was released from incarceration May 11 2018. Patient reported a normal check-up by the ER on May 18, 2018. Patient has history of Diabetes for which he reported use of Novolin R insulin. On examination, patient had a wound measuring 1.5cmX 1.5cm with tendon visible. On arrival, vitals were 99.6,92,16,96% RA 139/82. Labs were obtained. Abnormal lab values included the following: Sodium 123, Chloride 89, BUN 28, Creatinine 1.77, Glucose 412, 446, Corrected Calcium 11.3, Alkaline Phis 37, C Reactive Protein 336.90, Albumin 1.8, Globulin 6.0, WBC 12.1, RBC 3.50, HGB 10.2, HCT 29.8. Acetone, Semi-Quant Small. Wound cultures and blood cultures x 2 obtained. He was given Normal Saline 1000mls @ 100mls/hr IV and Hum R 10 units SQ X 1 in the ER. He was admitted for wound care, possible I&D, aggressive IV antibiotics, pain management, and control of hyperglycemia. We obtained a lower extremity MRI reported: Status post amputation of 1st toe with moderate edema throughout the 1st metatarsal bone which is suspicious for osteomyelitis. Moderate edema throughout the 2nd metatarsal bone with bony irregularity along the head region which could represent a pathologic fracture or Charcot joint. Recommend plain film correlation. There is moderate extending into the proximal phalanx of the 2nd toe which is suspicious for osteomyelitis. Moderate bone marrow edema throughout the 5th metatarsal bone extending into the proximal phalanx of the 5th toe which probably represents osteomyelitis .Moderate cellulitis and edema throughout the foot extending along the dorsum of the foot with an elongated fluid collection seen along the lateral aspect of the foot , adjacent to the 5th metatarsal bone, which probably represents a subcutaneous abscess extending to the skin surface laterally. Dr. Cook was consulted. Dr. Cook took patient to OR from I&D. Patient tolerated procedure well. A PICC line was placed for IV antibiotic therpy. IV antibiotics and wound care was continued. On day three, left foot ulcer continued with drainage and patient was noted with low-grade temperature. Less drainage was noted from left foot ulcer. Blood and wound cultures were negative for growth. IV antibiotics were continued, along with wound care. On day six, patient reported he was feeling better. Dr. Cook released patient for discharge. Left foot ulcer was healing with only mild drainage noted. Vital signs stable. Labs wnl. We planned for discharge. Instructions for medications and follow up were discussed with patient and family, both voiced understanding. Patient discharged home in stable condition with family. - Discharge Medications Discharge Medications: Home Medication List insulin regular human [Novolin R Regular U-100 Insuln] See Label Instructions .ROUTE .COMPLEX PRN 06/07/18 [History] hydrocodone-acetaminophen [[place]] 1 tab PO Q6H PRN #28 tab 06/09/18 [Rx] ciprofloxacin HCl 750 mg PO BID #84 tab 06/13/18 [Rx] Prescriptions: ciprofloxacin HCl Dannie Espana hydrocodone-acetaminophen [[place]] Dannie Espana - Discharge Disposition Discharge Disposition: Patient is to follow up with VIGNESH Briggs in one week and with Dr. Cook in one week.
== END 2018-06-13 14:15 | disposition home or self-care (01) | DRG 623 ==
LOC: ER 19:51 → ICU 06-08 01:07
PROVIDERS: ADMIT Internal Medicine; ATTEND Internal Medicine
DX: D64.9 Anemia, unspecified; E87.8 Other disorders of electrolyte and fluid balance, not elsewhere classified; L97.528 Non-pressure chronic ulcer of other part of left foot with other specified severity; E10.621 Type 1 diabetes mellitus with foot ulcer; E10.628 Type 1 diabetes mellitus with other skin complications; Z89.412 Acquired absence of left great toe; E10.65 Type 1 diabetes mellitus with hyperglycemia; E87.1 Hypo-osmolality and hyponatremia; E86.0 Dehydration; I10 Essential (primary) hypertension; M86.172 Other acute osteomyelitis, left ankle and foot; E10.69 Type 1 diabetes mellitus with other specified complication; L03.116 Cellulitis of left lower limb
CPT/HCPCS: 36415; 73720; 80053; 80202; 82009; 82565; 82947; 85025; 86140; 87015; 87040; 87070; 87075; 87076; 87077; 87186; 87205; 96365; 96367; 96372; 99231; 99284; A4222; P9047; J1815; J2270; J2543; J3370; J3490; J7030; J7050

== ENCOUNTER 2018-08-29 11:47 | Inpatient (IN) ==
[2018-08-29] MEDS ORDERED: EPHEDRINE SULFATE INJ ONE (14:35)
[2018-08-29] MEDS ORDERED: REGLAN INJ 10 MG VIAL ONE (14:35)
[2018-08-29] MEDS ORDERED: DIPRIVAN VIAL ONE (14:35)
[2018-08-29] MEDS ORDERED: VERSED ONE (14:35)
[2018-08-29] MEDS ORDERED: ULTANE GAS IN ONE (14:35)
[2018-08-29] MEDS ORDERED: VANCOMYCIN HCL 1 GM VIAL 1 G in D5W 250 ML IV 250 ML IV SCH ×2 (15:00→21:00)
[2018-08-29] MEDS ORDERED: NS 500 ML IV 500 ML IV ONE (15:27)
[2018-08-29 16:09] LABS: BASOPHILS # (AUTO) 0.1 X10^3/uL (0.0-0.1); BASOPHILS % (AUTO) 1.1 % (0.2-1.0); EOSINOPHILS # (AUTO) 0.2 x10^3/uL (0.0-0.2); EOSINOPHILS % (AUTO) 3.3 % (0.9-2.9); HEMATOCRIT 35.6 % (42.0-54.0); HEMOGLOBIN 12.3 g/dL (13.5-18.0); LYMPHOCYTES # (AUTO) 2.5 X10^3/uL (1.3-2.9); LYMPHOCYTES % (AUTO) 41.8 % (21.0-51.0); MEAN CORPUSCULAR HEMOGLOBIN 29.3 pg (27.0-34.0); MEAN CORPUSCULAR HGB CONC 34.6 g/dL (33.0-35.0); MEAN CORPUSCULAR VOLUME 84.7 fL (80.0-100.0); MEAN PLATELET VOLUME 8.4 fL (7.4-11.0); MONOCYTES # (AUTO) 0.4 x10^3/uL (0.3-0.8); MONOCYTES % (AUTO) 5.9 % (0.0-13.0); NEUTROPHILS # (AUTO) 2.8 x10^3/uL (2.2-4.8); NEUTROPHILS % (AUTO) 47.9 % (42.0-75.0); PLATELET COUNT 258 X10^3/uL (150.0-450.0); RED CELL DISTRIBUTION WIDTH 13.7 % (11.6-16.5); WHITE BLOOD COUNT 5.9 X10^3/uL (3.6-10.0)
[2018-08-29 16:16] LABS: ALANINE AMINOTRANSFERASE 14 Units/L (12-78); ALBUMIN 1.9 g/dL (3.4-5.0); ALKALINE PHOSPHATASE 31 Units/L (46-116); ASPARTATE AMINO TRANSFERASE 16 Units/L (15-37); BLOOD UREA NITROGEN 11 mg/dL (7-18); CALCIUM 8.5 mg/dL (8.5-10.1); CARBON DIOXIDE 25.4 mmol/L (21-32); CHLORIDE 101 mmol/L (98-107); COR CA(FOR HYPOALB) 10.2 mg/dL (8.5-10.1); COR NA(FOR HYPERGLY) 142 mmol/L (136-145); CREATININE 1.44 mg/dL (0.70-1.30); SODIUM 135 mmol/L (136-145); eGFR NON BLACK RACES 56 (>60)
[2018-08-29] MEDS: HumuLIN R SUBCUT PRN ×2 (16:31→22:00)
[2018-08-29 16:36] VITALS: BMI 25.2
[2018-08-29] MEDS ORDERED: MILK OF MAGNESIA PO PRN (17:21)
[2018-08-29] MEDS: LOVENOX INJ 40 MG SYR SC SCH (18:15)
[2018-08-29] MEDS: NS 1000 ML 1,000 ML IV SCH (18:19)
[2018-08-29] MEDS: VASOTEC TAB 5 MG PO SCH (18:45)
[2018-08-29] MEDS ORDERED: K-RIDER 10 MEQ/NS 100 ML 10 MEQ/100 ML BAG IV PRN (18:47)
[2018-08-29] MEDS ORDERED: MICRO K EXTEN CAP 10 MEQ PO PRN (18:47)
[2018-08-29] MEDS ORDERED: POTASSIUM CHLORIDE LIQ 20 MEQ UDC PO PRN (18:47)
[2018-08-29] MEDS ORDERED: POTASSIUM CHL 40 MEQ/NS 0.45% 500 ML IV PRN (18:47)
[2018-08-29] MEDS ORDERED: POTASSIUM CHL 60 MEQ/NS 0.45% 500 ML IV PRN (18:47)
[2018-08-29] MEDS: K-DUR TAB 20 MEQ PO PRN ×2 (20:47→23:11)
[2018-08-29] MEDS: NORCO 5/325 MG TAB PO PRN (20:48)
[2018-08-29] MEDS: SNACK - Diabetic Appropriate PO SCH (20:49)
[2018-08-29] MEDS: COLACE CAP 100 MG PO SCH (20:50)
[2018-08-29] MEDS: MAGNESIUM SULFATE 1 GRAM/100 mL PREMIX 1 GM/100 ML BAG IV PRN ×2 (20:50→22:01)
--- NOTE | 2018-08-29 21:26 | RAD ---
History: Osteomyelitis Technique: Three views of the left foot Comparison: Left foot MRI dated 06/08/2018 Findings: Patient is status post great toe at the MT P. There is soft tissue swelling noted over the stump with some irregularity suggesting ulceration. Clinical correlation is required. There are periarticular e rosions at the 2nd MTP joint with osteopenia of the 2nd metatarsal head and loss of joint space of th e 2nd MTP. There are erosions involving the distal 5th metatarsal and 5th proximal phalangeal base wi th widening of the joint space and periostitis along the 5th metatarsal extending from the base/tuber osity to the head. There is a large soft tissue defect suggested laterally adjacent to the 5th metata rsal. There is large amount of generalized soft tissue swelling most severe along the dorsal aspect o f the foot. Impression: 1. Findings consistent with osteomyelitis of the 5th metatarsal and 5th proximal phalanx, with probab le septic arthritis suggested at the 5th MTP. There is overlying soft tissue irregularity/ulceration suggested. These findings could be confirmed with MRI if clinically indicated. 2. Erosive changes and joint space loss about the 2nd MTP, highly concerning for osteomyelitis and 2n d MTP septic arthritis. 3. Soft tissue swelling and irregularity over the 1st metatarsal suggesting ulceration. Reported By:
--- NOTE | 2018-08-30 00:50 | DR.CARTERD ---
- Discharge Medications Discharge Medications: Prescriptions:
--- NOTE | 2018-08-30 01:01 | DR.PROGNOT ---
Hospital Progress Notes - Progress Note for Day of: Progress Note Date: 08/29/18 - Chief Complaint Chief Complaint: pt is noncompliant diabetic with osteomyelitis of the Lt foot and chronic non healing Lt foot ulcer . Has CKD , severe diabetic neuropathy and DM with complication .has abnormal EKG as well.. - Past Medical Family Social History Past Med/Fam/Surg Hx: No changes since H&P Allergies: Allergies No Known Drug Allergies Allergy (Verified 06/07/18 19:58) - Review Of Systems ROS: No change since H&P - Vital Signs Vital Signs: Temperature 99 F Pulse Rate [Bilateral Radial] 84 Respiratory Rate 20 Blood Pressure [Right Arm] 180/90 Blood Pressure [Left Arm] 139/82 Blood Pressure 107/63 O2 Sat by Pulse Oximetry 97 - Physical Exam Oriented: Normal Eyes: Normal Ear: Normal Respiratory: Normal Cardiovascular: Normal : Normal GI:Auscultation: Normal Skin: Other (7 x 2 x 2 cm ulcer Lt lateral foot .) Musculoskeletal: Left (7 x 3 x 2 cm Lt foot ulcer at the lateral aspect with purulent drainage positive for staph in the past. has 2+ edema extending to the lower leg with mild erythema ..pulses are palpable with Doppler . previous great toe amputation ) Speech Pattern: Clear, Appropriate - Laboratory and Diagnostics Result Diagrams: 08/29/18 15:57 08/29/18 15:57 Labs: Laboratory WBC 5.9 X10^3/uL (3.6-10.0) 08/29/18 15:57 RBC 4.20 X10^6/uL (4.7-6.0) L 08/29/18 15:57 Hgb 12.3 g/dL (13.5-18.0) L 08/29/18 15:57 Hct 35.6 % (42.0-54.0) L 08/29/18 15:57 MCV 84.7 fL (80.0-100.0) 08/29/18 15:57 MCH 29.3 pg (27.0-34.0) 08/29/18 15:57 MCHC 34.6 g/dL (33.0-35.0) 08/29/18 15:57 RDW 13.7 % (11.6-16.5) 08/29/18 15:57 Plt Count 258 X10^3/uL (150.0-450.0) 08/29/18 15:57 MPV 8.4 fL (7.4-11.0) 08/29/18 15:57 Neut % (Auto) 47.9 % (42.0-75.0) 08/29/18 15:57 Lymph % (Auto) 41.8 % (21.0-51.0) 08/29/18 15:57 [place]y % (Auto) 5.9 % (0.0-13.0) 08/29/18 15:57 Eos % (Auto) 3.3 % (0.9-2.9) H 08/29/18 15:57 Baso % (Auto) 1.1 % (0.2-1.0) H 08/29/18 15:57 Neut # (Auto) 2.8 x10^3/uL (2.2-4.8) 08/29/18 15:57 Lymph # (Auto) 2.5 X10^3/uL (1.3-2.9) 08/29/18 15:57 [place]ancey # (Auto) 0.4 x10^3/uL (0.3-0.8) 08/29/18 15:57 Eos # (Auto) 0.2 x10^3/uL (0.0-0.2) 08/29/18 15:57 Baso # (Auto) 0.1 X10^3/uL (0.0-0.1) 08/29/18 15:57 Absolute Nucleated RBC 0.1 /100WBC 08/29/18 15:57 Sodium 135 mmol/L (136-145) L 08/29/18 15:57 Corrected Sodium 142 mmol/L (136-145) 08/29/18 15:57 Potassium 3.2 mmol/L (3.5-5.1) L 08/29/18 15:57 Chloride 101 mmol/L (98-107) 08/29/18 15:57 Carbon Dioxide 25.4 mmol/L (21-32) 08/29/18 15:57 BUN 11 mg/dL (7-18) 08/29/18 15:57 Creatinine 1.44 mg/dL (0.70-1.30) H 08/29/18 15:57 Est GFR (MDRD) Af Amer > 60 (>60) 08/29/18 15:57 Est GFR (MDRD) Non-Af 56 (>60) L 08/29/18 15:57 Glucose 397 mg/dL (65-99) H 08/29/18 15:57 POC Glucose (mg/dL) 334 mg/dL (65-99) H 08/29/18 20:38 Calcium 8.5 mg/dL (8.5-10.1) 08/29/18 15:57 Corrected Calcium 10.2 mg/dL (8.5-10.1) H 08/29/18 15:57 Magnesium 1.5 mg/dL (1.7-2.9) L 08/29/18 15:57 Total Bilirubin 0.70 mg/dL (0.2-1.0) 08/29/18 15:57 AST 16 Units/L (15-37) 08/29/18 15:57 ALT 14 Units/L (12-78) 08/29/18 15:57 Alkaline Phosphatase 31 Units/L (46-116) L 08/29/18 15:57 Total Protein 6.0 g/dL (6.4-8.2) L 08/29/18 15:57 Albumin 1.9 g/dL (3.4-5.0) L 08/29/18 15:57 Globulin 4.1 g/dL (2.5-4.5) 08/29/18 15:57 Albumin/Globulin Ratio 0.5 Ratio (1.1-2.1) L 08/29/18 15:57 - Assessment and Plan 1: osteomyelitis Lt foot with chronic non healing foot ulcer 2: DM with complications 3: Chronic Kidney Disease . 4: HTN 5: severe adiabetic neuropathy . 6: EKG changes . 7: non compliance. will correct his DM and electrolyte imbalance , start him on Vancomycin. Medical evaluation and will address surgical options in details
[2018-08-30 05:42] LABS: BASOPHILS # (AUTO) 0.1 X10^3/uL (0.0-0.1); BASOPHILS % (AUTO) 1.2 % (0.2-1.0); EOSINOPHILS # (AUTO) 0.2 x10^3/uL (0.0-0.2); EOSINOPHILS % (AUTO) 4.7 % (0.9-2.9); HEMATOCRIT 32.3 % (42.0-54.0); HEMOGLOBIN 11.4 g/dL (13.5-18.0); LYMPHOCYTES # (AUTO) 2.7 X10^3/uL (1.3-2.9); LYMPHOCYTES % (AUTO) 51.4 % (21.0-51.0); MEAN CORPUSCULAR HEMOGLOBIN 29.5 pg (27.0-34.0); MEAN CORPUSCULAR HGB CONC 35.3 g/dL (33.0-35.0); MEAN CORPUSCULAR VOLUME 83.6 fL (80.0-100.0); MEAN PLATELET VOLUME 8.4 fL (7.4-11.0); MONOCYTES # (AUTO) 0.4 x10^3/uL (0.3-0.8); MONOCYTES % (AUTO) 7.6 % (0.0-13.0); NEUTROPHILS # (AUTO) 1.8 x10^3/uL (2.2-4.8); NEUTROPHILS % (AUTO) 35.1 % (42.0-75.0); PLATELET COUNT 263 X10^3/uL (150.0-450.0); RED BLOOD COUNT 3.86 X10^6/uL (4.7-6.0); RED CELL DISTRIBUTION WIDTH 13.4 % (11.6-16.5); WHITE BLOOD COUNT 5.2 X10^3/uL (3.6-10.0)
[2018-08-30 05:52] LABS: ALANINE AMINOTRANSFERASE 13 Units/L (12-78); ALBUMIN 1.6 g/dL (3.4-5.0); ALKALINE PHOSPHATASE 35 Units/L (46-116); ASPARTATE AMINO TRANSFERASE 14 Units/L (15-37); BLOOD UREA NITROGEN 11 mg/dL (7-18); CALCIUM 8.1 mg/dL (8.5-10.1); CARBON DIOXIDE 24.5 mmol/L (21-32); CHLORIDE 102 mmol/L (98-107); COR NA(FOR HYPERGLY) 142 mmol/L (136-145); CREATININE 1.53 mg/dL (0.70-1.30); MAGNESIUM 1.9 mg/dL (1.7-2.9); SODIUM 135 mmol/L (136-145); TOTAL PROTEIN 5.3 g/dL (6.4-8.2); eGFR NON BLACK RACES 53 (>60)
[2018-08-30] MEDS: HumuLIN R SUBCUT PRN ×3 (05:58→21:24)
[2018-08-30 06:08] LABS: PLATELET MORPHOLOGY COMMENT NORMAL (NORMAL)
[2018-08-30] MEDS: KLOR-CON PO PRN (06:32)
[2018-08-30] MEDS: MAGNESIUM SULFATE 1 GRAM/100 mL PREMIX 1 GM/100 ML BAG IV PRN ×2 (06:32→21:23)
[2018-08-30] MEDS: VANCOMYCIN HCL 1 GM VIAL 1 G in D5W 250 ML IV 250 ML IV SCH ×2 (08:51→20:44)
[2018-08-30] MEDS: VASOTEC TAB 5 MG PO SCH ×2 (08:51→20:45)
[2018-08-30 08:55] LABS: CHOL/HDL RATIO 4.3 (0.0-5.0)
[2018-08-30] MEDS ORDERED: LOPRESSOR INJ 5 MG AMP IVP ONE ×3 (10:09→16:29)
--- NOTE | 2018-08-30 10:25 | DR.CONSULT ---
Consult - Consultation for Day of: Date: 08/30/18 - Chief Complaint Chief Complaint: OSTEOMYELITIS OF THE LEFT FOOT - History of Present Illness History of Present Illness: IS A 47 YEAR OLD BLACK MALE PATIENT OF WHO WAS ADMITTED FOR OSTEOMYELITIS OF THE 5TH METATARSAL AND 5TH PROXIMAL PHALANX WITH PROBABLE SEPTIC ARTHRITIS SUGGESTED AT THE 5TH MTP OF THE LEFT FOOT. THERE IS EROSIVE CHANGES AND JOINT SPACE LOSS ABOUT THE 2ND MTP, HIGHLY CONCERNING FOR OSTEOMYELITIS AND 2ND MTP SEPTIC ARTHRITIS WELL ULCERATION OVER THE 1ST METATARSAL. HAS BEEN TREATING PATIENT IN THE OFFICE AND HAS DEBRIDED WOUND TO THE LEFT FOOT WELL TREATED WITH ANTIBIOTICS FOR AN EXTENDED PERIOD. PATIENTS LEFT GREAT TOE HAS BEEN PREVIOUSLY AMPUTATED. PLANS FOR AMPUTATION OF THE LEFT FOOT TOMORROW. HE CON SULTED US FOR MEDICAL CLEARANCE. PATIENTS PAST MEDICAL HISTORY INCLUDES HYPERLIPIDEMIA, HYPERTENSION, AND DIABETES MELLITIS TYPE II. PATIENT REPORTS BEING INCARCERATED FOR SEVERAL YEARS PRIOR AND REPORTS MEDICAL MANAGEMENT FOR DIABETES, HIGH CHOLESTEROL, AND HYPERTENSION WHILE HE WAS INCARCERATED, BUT DENIES COMPLIANCE WITH MEDICATIONS SINCE HE WAS RELEASED. HE IS UNSURE OF THE NAMES OF THE BLOOD PRESSURE AND CHOLESTEROL MEDICATIONS THAT HE WAS ON. HE DOES REPORT USING SLIDING SCALE HUMULIN R WHEN HE CAN AFFORD IT. HIS VITLAS TODAY ARE 98.9-85-20-97%RA-162/91. HIS BLOOD PRESSURE HAS BEEN ELEVATED THROUGHOUT THE NIGHT. LABS WERE OBTAINED THIS MORNING. ABNORMAL LAB VALUES INCLUDE THE FOLLOWING: RBC 3.86, HGB 11.4, HCT 32.3, SODIUM 135, POTASSIUM 3.2, CREATININE 1.53, GLUCOSE 387, CALCIUM 8.1, AST 14, ALK PHOS 35, TOTAL PROTEIN 5.3, ALBUMIN 1.6. A CHEST XRAY WAS OBTAINED AND IS NEGATIVE FOR ACUTE PROCESS. EKG REVEALED: SINUS RHYTHM WITH HR 83. HE IS CURRENTLY RECEIVING VANCOMYCIN 1GM IV Q12H, HUMULIN R SLIDING SCALE, POTASSIUM REPLACEMENT FOR PROTOCOL, AND VASOTEC 5MG PO DAILY. TODAY, WE WILL START LEVEMIR 10 UNITS SC BID, AMLODIPINE 5MG PO DAILY, AND INCREASE VASOTEC TO 5MG PO BID. WE WILL OBTAIN A CARDIAC CTA, ECHOCARDIOGRAM, AND CAROTID DOPPLERS FOR SURGICAL CLEARANCE DUE TO PATIENTS MEDICAL HISTORY. OTHERWISE, WE WILL CONTINUE TO MONITOR PATIENT AND FOLLOW UP WITH AM LABS. - Past Medical History Past Medical History: Hypertension, Dyslipidemia, Diabetes, Seizures - Past Surgical History Additional Surgical History: left great toe amputation - Family History Family Medical History: Diabetes Mellitus, [place], Sudden Cardiac , Hypertension - Social History Does patient currently use any type of tobacco product: Yes Have you used tobacco products in the last 12 months: Yes Type of Tobacco Use: Cigarettes How many years tobacco product used: 32 Alcohol Use: None Drug Use: None - Medications Home Medications: No Known Drug Allergies Allergy (Verified 06/07/18 19:58) - Review of Systems Constitutional: No Symptoms Reported Eyes: No Symptoms Reported ENT: No Symptoms Reported Respiratory: No Symptoms Reported Cardiovascular: No Symptoms Reported Gastrointestinal: No Symptoms Reported Genitourinary: No Symptoms Reported Musculoskeletal: See HPI, Foot Pain (LEFT FOOT PAIN ) Skin: Wound (LEFT FOOT ) Neurological: No Symptoms Reported - Physical Exam Vital Signs: Temperature 98.9 F Pulse Rate [Bilateral Radial] 76 Respiratory Rate 20 Blood Pressure [Right Arm] 180/93 Blood Pressure [Left Arm] 139/82 Blood Pressure 107/63 O2 Sat by Pulse Oximetry 98 Oriented: Normal Eyes: Normal Ear: Normal Nose: Normal Throat: Normal Respiratory: Clear Throughout Cardiovascular: Normal. negative: S3, S4, Murmur : Normal Auscultation: Bowel Sounds: Normal Palpation: Normal Tenderness: Normal Skin: Tender, Hot (LEFT FOOT DIABETIC ULCER ), Wound Musculoskeletal: Left, Foot, Swelling, Tender Psychiatric: Normal Mood Description: Calm Affect: Normal Speech Pattern: Clear - Plan Plan: OBTAIN ECHO, CAROTID DOPPLER, AND CARDIAC CTA FOR SURGICAL CLEARANCE. START AMLODIPINE 5MG PO DAILY, LEVEMIR 10 UNITS SC BID, AND INCREASE VASOTEC TO 5MG PO BID. CONTINUE VANCOMYCIN AND SLIDING SCALE INSULIN, CONTINUE TO MONITOR. - Allergies Allergies/Adverse Reactions: Allergies Allergy/AdvReac Type Severity Reaction Status Date / Time No Known Drug Allergies Allergy Verified 06/07/18 19:58
[2018-08-30] MEDS: LEVEMIR SC SCH ×2 (10:48→20:54)
[2018-08-30] MEDS: ALBUMIN HUMAN 25%- 100 ML 100 ML IV SCH (10:48)
[2018-08-30] MEDS: NORVASC TAB 5 MG PO SCH (10:48)
[2018-08-30] MEDS: NS 1000 ML 1,000 ML IV SCH (10:58)
--- NOTE | 2018-08-30 13:32 | VAS ---
Exam: Carotid Doppler exam History: 47-year-old male with hypertension and diabetes. Evaluate for possible carotid artery stenos is. Comparison: None Findings: Mild degree of plaque is present in both carotid systems. On the right, peak systolic velocities in cm per 2nd of the right internal and common carotid arterie s measure 81 and 66 respectively. The greatest ICA/CCA ratio on the right is 1.23 On the left, peak systolic velocities in cm per 2nd of the left internal and common carotid arteries measure 76 and 67 respectively. The greatest ICA/CCA ratio on the left is 1.13 Antegrade flow was documented patent vertebral arteries bilaterally. Impression: No hemodynamically significant carotid stenosis is seen on either side. Reported By:
[2018-08-30] MEDS ORDERED: LOPRESSOR INJ 5 MG AMP ONE ×2 (14:41→16:10)
[2018-08-30] MEDS ORDERED: VASOTEC TAB 5 MG PO SCH (17:23)
[2018-08-30] MEDS ORDERED: SNACK - Diabetic Appropriate PO SCH (20:00)
[2018-08-30] MEDS ORDERED: HYDROGEN PEROXIDE 3% EXT ONE (20:32)
[2018-08-30] MEDS: COLACE CAP 100 MG PO SCH (20:45)
[2018-08-30] MEDS: SNACK - Diabetic Appropriate PO SCH (20:47)
[2018-08-30] MEDS: NORCO 5/325 MG TAB PO PRN (21:24)
[2018-08-31] MEDS: VASOTEC TAB 5 MG PO SCH ×4 (03:41→20:35)
[2018-08-31 05:17] LABS: BASOPHILS % (AUTO) 0.9 % (0.2-1.0); EOSINOPHILS # (AUTO) 0.2 x10^3/uL (0.0-0.2); EOSINOPHILS % (AUTO) 3.9 % (0.9-2.9); HEMATOCRIT 30.5 % (42.0-54.0); LYMPHOCYTES # (AUTO) 2.4 X10^3/uL (1.3-2.9); LYMPHOCYTES % (AUTO) 44.1 % (21.0-51.0); MEAN CORPUSCULAR HGB CONC 35.9 g/dL (33.0-35.0); MEAN CORPUSCULAR VOLUME 83.6 fL (80.0-100.0); MONOCYTES # (AUTO) 0.4 x10^3/uL (0.3-0.8); MONOCYTES % (AUTO) 7.4 % (0.0-13.0); NEUTROPHILS # (AUTO) 2.4 x10^3/uL (2.2-4.8); NEUTROPHILS % (AUTO) 43.7 % (42.0-75.0); PLATELET COUNT 238 X10^3/uL (150.0-450.0); RED BLOOD COUNT 3.65 X10^6/uL (4.7-6.0); RED CELL DISTRIBUTION WIDTH 13.2 % (11.6-16.5); WHITE BLOOD COUNT 5.4 X10^3/uL (3.6-10.0)
[2018-08-31 05:28] LABS: ALANINE AMINOTRANSFERASE 12 Units/L (12-78); ALBUMIN 1.9 g/dL (3.4-5.0); ALKALINE PHOSPHATASE 29 Units/L (46-116); ASPARTATE AMINO TRANSFERASE 13 Units/L (15-37); BLOOD UREA NITROGEN 14 mg/dL (7-18); CALCIUM 8.1 mg/dL (8.5-10.1); CARBON DIOXIDE 23.9 mmol/L (21-32); CHLORIDE 104 mmol/L (98-107); COR CA(FOR HYPOALB) 9.8 mg/dL (8.5-10.1); COR NA(FOR HYPERGLY) 140 mmol/L (136-145); CREATININE 1.32 mg/dL (0.70-1.30); SODIUM 137 mmol/L (136-145); TOTAL PROTEIN 5.3 g/dL (6.4-8.2); eGFR NON BLACK RACES > 60 (>60)
[2018-08-31] MEDS: NS 1000 ML 1,000 ML IV SCH ×3 (06:14→09:12)
[2018-08-31] MEDS ORDERED: BACITRACIN VIAL ONE (07:27)
[2018-08-31] MEDS ORDERED: PHARMACY COMMENT IV NR (08:30)
[2018-08-31] MEDS: ALBUMIN HUMAN 25%- 100 ML 100 ML IV SCH (09:12)
[2018-08-31] MEDS: LEVEMIR SC SCH ×3 (09:12→20:38)
[2018-08-31] MEDS: NORVASC TAB 5 MG PO SCH ×2 (09:12→11:04)
[2018-08-31] MEDS: VANCOMYCIN HCL 1 GM VIAL 1 G in D5W 250 ML IV 250 ML IV SCH ×3 (09:13→20:34)
[2018-08-31 09:22] LABS: CREATININE 1.28 mg/dL (0.70-1.30); VANCOMYCIN,TROUGH 12.5 ug/mL (15-20)
[2018-08-31] MEDS ORDERED: NS 1000 ML 1,000 ML ONE (09:24)
[2018-08-31] MEDS ORDERED: FENTANYL INJ 100 mcg ONE (10:34)
[2018-08-31] MEDS: HumuLIN R SUBCUT PRN ×3 (11:20→20:36)
[2018-08-31] MEDS ORDERED: PHENERGAN INJ 25 MG IVP PRN ×2 (11:22→11:24)
[2018-08-31] MEDS ORDERED: REGLAN INJ 10 MG VIAL IVP PRN ×2 (11:22→11:24)
[2018-08-31] MEDS ORDERED: BENADRYL INJ 50 MG VIAL IVP PRN ×2 (11:22→11:24)
[2018-08-31] MEDS ORDERED: DILAUDID INJ IVP PRN ×3 (11:22→11:24)
[2018-08-31] MEDS ORDERED: ZOFRAN INJ 4 MG VIAL IVP PRN ×2 (11:22→11:24)
[2018-08-31] MEDS ORDERED: DILAUDID INJ ONE (11:47)
[2018-08-31] MEDS ORDERED: ULTANE GAS IN ONE (16:02)
[2018-08-31] MEDS ORDERED: ZOFRAN INJ 4 MG VIAL ONE (16:02)
[2018-08-31] MEDS ORDERED: VERSED ONE (16:02)
[2018-08-31] MEDS ORDERED: DIPRIVAN VIAL ONE (16:02)
[2018-08-31] MEDS ORDERED: REGLAN INJ 10 MG VIAL ONE (16:02)
[2018-08-31] MEDS ORDERED: EPHEDRINE SULFATE INJ ONE (16:02)
[2018-08-31] MEDS: DILAUDID INJ IVP PRN (16:50)
[2018-08-31] MEDS: BENADRYL INJ 50 MG VIAL IVP PRN (17:00)
[2018-08-31] MEDS ORDERED: CATAPRES TAB 0.1 MG PO ONE (17:21)
[2018-08-31] MEDS: K-DUR TAB 20 MEQ PO PRN (18:40)
[2018-08-31] MEDS: NORCO 5/325 MG TAB PO PRN (20:05)
[2018-08-31] MEDS: COLACE CAP 100 MG PO SCH (20:35)
[2018-08-31] MEDS: SNACK - Diabetic Appropriate PO SCH (22:13)
[2018-09-01 05:24] LABS: BASOPHILS % (AUTO) 0.6 % (0.2-1.0); EOSINOPHILS # (AUTO) 0.2 x10^3/uL (0.0-0.2); HEMATOCRIT 29.7 % (42.0-54.0); HEMOGLOBIN 10.4 g/dL (13.5-18.0); LYMPHOCYTES # (AUTO) 2.2 X10^3/uL (1.3-2.9); LYMPHOCYTES % (AUTO) 36.6 % (21.0-51.0); MEAN CORPUSCULAR HGB CONC 35.2 g/dL (33.0-35.0); MEAN CORPUSCULAR VOLUME 85.4 fL (80.0-100.0); MEAN PLATELET VOLUME 8.2 fL (7.4-11.0); MONOCYTES # (AUTO) 0.4 x10^3/uL (0.3-0.8); MONOCYTES % (AUTO) 7.2 % (0.0-13.0); NEUTROPHILS # (AUTO) 3.1 x10^3/uL (2.2-4.8); NEUTROPHILS % (AUTO) 51.6 % (42.0-75.0); PLATELET COUNT 221 X10^3/uL (150.0-450.0); RED BLOOD COUNT 3.48 X10^6/uL (4.7-6.0); RED CELL DISTRIBUTION WIDTH 13.4 % (11.6-16.5); WHITE BLOOD COUNT 5.9 X10^3/uL (3.6-10.0)
[2018-09-01 05:45] LABS: ALANINE AMINOTRANSFERASE 13 Units/L (12-78); ALBUMIN 2.1 g/dL (3.4-5.0); ALKALINE PHOSPHATASE 26 Units/L (46-116); ASPARTATE AMINO TRANSFERASE 13 Units/L (15-37); BLOOD UREA NITROGEN 12 mg/dL (7-18); CARBON DIOXIDE 24.4 mmol/L (21-32); CHLORIDE 105 mmol/L (98-107); COR CA(FOR HYPOALB) 9.5 mg/dL (8.5-10.1); COR NA(FOR HYPERGLY) 141 mmol/L (136-145); CREATININE 1.37 mg/dL (0.70-1.30); SODIUM 137 mmol/L (136-145); TOTAL PROTEIN 5.3 g/dL (6.4-8.2); eGFR NON BLACK RACES 60 (>60)
[2018-09-01] MEDS: NS 1000 ML 1,000 ML IV SCH ×2 (05:53→11:38)
[2018-09-01] MEDS: HumuLIN R SUBCUT PRN ×2 (05:54→12:25)
[2018-09-01] MEDS: DILAUDID INJ IVP PRN ×3 (05:55→21:13)
[2018-09-01] MEDS: ALBUMIN HUMAN 25%- 100 ML 100 ML IV SCH (09:10)
[2018-09-01] MEDS: NORVASC TAB 5 MG PO SCH (09:11)
[2018-09-01] MEDS: LEVEMIR SC SCH ×2 (09:11→21:15)
[2018-09-01] MEDS: VANCOMYCIN HCL 1 GM VIAL 1 G in D5W 250 ML IV 250 ML IV SCH ×2 (09:11→21:10)
[2018-09-01] MEDS: VASOTEC TAB 5 MG PO SCH ×2 (09:12→21:12)
[2018-09-01] MEDS: LOVENOX INJ 40 MG SYR SC SCH (09:44)
--- NOTE | 2018-09-01 09:53 | PCM.PROG ---
Progress Note - Progress Note for Day of Date of Exam: 08/31/18 - Subjective Subjective: IS A 47 YEAR OLD BLACK MALE PATIENT OF WHO WAS ADMITTED FOR OSTEOMYELITIS OF THE 5TH METATARSAL AND 5TH PROXIMAL PHALANX WITH PROBABLE SEPTIC ARTHRITIS SUGGESTED AT THE 5TH MTP OF THE LEFT FOOT. THERE IS EROSIVE CHANGES AND JOINT SPACE LOSS ABOUT THE 2ND MTP, HIGHLY CONCERNING FOR OSTEOMYELITIS AND 2ND MTP SEPTIC ARTHRITIS WELL ULCERATION OVER THE 1ST METATARSAL. PLANS FOR AMPUTATION OF THE LEFT FOOT TODAY. HE CONSULTED US FOR MEDICAL CLEARANCE. HIS VITALS TODAY ARE [id number]%-183/96. HIS BLOOD PRESSURE HAS REMAINED ELEVATED THROUGHOUT THE NIGHT DESPITE CHANGES TO MEDICATIONS THAT WERE MADE. LABS WERE OBTAINED THIS MORNING. ABNORMAL LAB VALUES INCLUDE THE FOLLOWING: RBC 3.65, HGB 11.0, HCT 30.5, POTASSIUM 3.0, CREATININE 1.32, GLUCOSE 233, CALCIUM 8.1, AST 13, ALK PHOS 29, TOTAL PROTEIN 5.3, ALBUMIN 1.9. WE OBTAINED AN ECHOCARDIOGRAM AND CAROTID DOPPLERS YESTERDAY FOR SURGICAL CLEARANCE. BOTH TEST ARE WITHIN NORMAL LIMITS. TODAY, WE WILL INCREASE THE VASOTEC TO 10MG PO BID, INCREASE NORVASC TO 10MG PO DAILY, AND INCREASE THE LEVEMIR TO 15 UNITS BID. HE IS ALSO CURRENTLY RECEIVING VANCOMYCIN 1GM IV Q12H, HUMULIN R SLIDING SCALE, POTASSIUM REPLACEMENT FOR PROTOCOL. HE HIS MEDICALLY STABLE AND CLEARED FOR SURGERY TODAY. OTHERWISE, WE WILL CONTINUE TO MONITOR PATIENT AND FOLLOW UP WITH AM LABS. - Past Medical Family Social History Past Med/Fam/Surg Hx: No changes since H&P Allergies: Allergies No Known Drug Allergies Allergy (Verified 06/07/18 19:58) - Review of Systems ROS: No change since H&P - Vital Signs and I&O's Vital Signs: Temperature 98.6 F Pulse Rate [Bilateral Radial] 82 Pulse Rate 80 Respiratory Rate 20 Blood Pressure [Right Arm] 165/91 Blood Pressure [Left Arm] 139/82 Blood Pressure 166/97 O2 Sat by Pulse Oximetry 96 Intake and Output: Intake & Output 08/29/18 08/30/18 08/31/18 09/01/18 11:59 11:59 11:59 11:59 Intake Total 2300 / 2300 4680 / 4680 3060 / 3060 Output Total 800 / 800 2009 2452 / 2452 Balance 1500 / 1500 2670 / 2670 608 / 608 - Physical Exam Oriented: Normal Eyes: Normal Ear: Normal Nose: Normal Throat: Normal Respiratory: Normal Cardiovascular: Normal. negative: S3, S4, Murmur : Normal Auscultation: Bowel Sounds: Normal Palpation: Normal Tenderness: Normal Skin: Tender, Hot (LEFT FOOT DIABETIC ULCER ), Wound Musculoskeletal: Left, Foot, Swelling, Tender Psychiatric: Normal Mood Description: Calm Affect: Normal Speech Pattern: Clear, Appropriate - Laboratory and Diagnostics Result Diagrams: 09/01/18 04:35 09/01/18 04:35 Labs: 08/31/18 11:00 Surgery Gram Stain - Final Laboratory WBC 5.9 X10^3/uL (3.6-10.0) 09/01/18 04:35 RBC 3.48 X10^6/uL (4.7-6.0) L 09/01/18 04:35 Hgb 10.4 g/dL (13.5-18.0) L 09/01/18 04:35 Hct 29.7 % (42.0-54.0) L 09/01/18 04:35 MCV 85.4 fL (80.0-100.0) 09/01/18 04:35 MCH 30.0 pg (27.0-34.0) 09/01/18 04:35 MCHC 35.2 g/dL (33.0-35.0) H 09/01/18 04:35 RDW 13.4 % (11.6-16.5) 09/01/18 04:35 Plt Count 221 X10^3/uL (150.0-450.0) 09/01/18 04:35 Plt Count Comment Adequate (ADEQUATE) 08/30/18 04:48 MPV 8.2 fL (7.4-11.0) 09/01/18 04:35 Neut % (Auto) 51.6 % (42.0-75.0) 09/01/18 04:35 Lymph % (Auto) 36.6 % (21.0-51.0) 09/01/18 04:35 [place] % (Auto) 7.2 % (0.0-13.0) 09/01/18 04:35 Eos % (Auto) 4.0 % (0.9-2.9) H 09/01/18 04:35 Baso % (Auto) 0.6 % (0.2-1.0) 09/01/18 04:35 Neut # (Auto) 3.1 x10^3/uL (2.2-4.8) 09/01/18 04:35 Lymph # (Auto) 2.2 X10^3/uL (1.3-2.9) 09/01/18 04:35 [place] # (Auto) 0.4 x10^3/uL (0.3-0.8) 09/01/18 04:35 Eos # (Auto) 0.2 x10^3/uL (0.0-0.2) 09/01/18 04:35 Baso # (Auto) 0.0 X10^3/uL (0.0-0.1) 09/01/18 04:35 Absolute Nucleated RBC 0.1 /100WBC 09/01/18 04:35 Total Counted 100 08/30/18 04:48 Neutrophils % (Manual) 37 % (39-76) L 08/30/18 04:48 Lymphocytes % (Manual) 50 % (13-43) H 08/30/18 04:48 Monocytes % (Manual) 8 % (4-9) 08/30/18 04:48 Eosinophils % (Manual) 5 % (0-6) 08/30/18 04:48 Plt Morphology Comment Normal (NORMAL) 08/30/18 04:48 RBC Morphology Normal (NORMAL) 08/30/18 04:48 Sodium 137 mmol/L (136-145) 09/01/18 04:35 Corrected Sodium 141 mmol/L (136-145) 09/01/18 04:35 Potassium 3.6 mmol/L (3.5-5.1) 09/01/18 04:35 Chloride 105 mmol/L (98-107) 09/01/18 04:35 Carbon Dioxide 24.4 mmol/L (21-32) 09/01/18 04:35 BUN 12 mg/dL (7-18) 09/01/18 04:35 Creatinine 1.37 mg/dL (0.70-1.30) H 09/01/18 04:35 Est GFR (MDRD) Af Amer > 60 (>60) 09/01/18 04:35 Est GFR (MDRD) Non-Af 60 (>60) 09/01/18 04:35 Glucose 272 mg/dL (65-99) H 09/01/18 04:35 POC Glucose (mg/dL) 300 mg/dL (65-99) H 09/01/18 05:34 Calcium 8.0 mg/dL (8.5-10.1) L 09/01/18 04:35 Corrected Calcium 9.5 mg/dL (8.5-10.1) 09/01/18 04:35 Magnesium 2.0 mg/dL (1.7-2.9) 08/31/18 04:50 Total Bilirubin 0.50 mg/dL (0.2-1.0) 09/01/18 04:35 AST 13 Units/L (15-37) L 09/01/18 04:35 ALT 13 Units/L (12-78) 09/01/18 04:35 Alkaline Phosphatase 26 Units/L (46-116) L 09/01/18 04:35 Total Protein 5.3 g/dL (6.4-8.2) L 09/01/18 04:35 Albumin 2.1 g/dL (3.4-5.0) L 09/01/18 04:35 Globulin 3.2 g/dL (2.5-4.5) 09/01/18 04:35 Albumin/Globulin Ratio 0.7 Ratio (1.1-2.1) L 09/01/18 04:35 Triglycerides 258 mg/dL (0-150) H 08/30/18 04:45 Cholesterol 221 mg/dL (0-200) H 08/30/18 04:45 LDL Cholesterol, Calc 118 mg/dL (0-100) H 08/30/18 04:45 HDL Cholesterol 51 mg/dL (40-60) 08/30/18 04:45 Cholesterol/HDL Ratio 4.3 (0.0-5.0) 08/30/18 04:45 Vancomycin Trough 12.5 ug/mL (15-20) L 08/31/18 08:37 Tissue Pathology To follow 08/31/18 11:00 - Plan (1) Osteomyelitis Status: Acute Qualifiers: Osteomyelitis type: unspecified type Osteomyelitis location: foot Laterality: left Qualified Code(s): M86.9 - Osteomyelitis, unspecified Plan: AMPUTATION TODAY, CONTINUE IV ANTIBIOTICS, CONTINUE TO MONITOR (2) Cellulitis of left foot Status: Acute Plan: CONTINUE IV ANTIBIOTICS AND WOUND CARE (3) Diabetes Status: Acute Qualifiers: Diabetes mellitus type: type 2 Diabetes mellitus truck terminal manager insulin use: unspecified long-term insulin use status Diabetes mellitus complication status: with skin complications Diabetes mellitus complication detail: with foot ulcer Qualified Code(s): E11.621 - Type 2 diabetes mellitus with foot ulcer; L97.509 - Non-pressure chronic ulcer of other part of unspecified foot with unspecified severity Plan: LEVEMIR 15UNITS SC BID, HUMULIN R SLIDING SCALE, MONITOR OTBS (4) Hypertension Status: Acute Qualifiers: Hypertension type: essential hypertension Qualified Code(s): I10 - Essential (primary) hypertension Plan: NORVASC 10MG DAILY, VASOTEC 10MG PO BID, CONTINUE TO MONITOR (5) Hypokalemia Status: Acute
--- NOTE | 2018-09-01 12:32 | DR.PROGNOT ---
Hospital Progress Notes - Progress Note for Day of: Progress Note Date: 09/01/18 - Chief Complaint Chief Complaint: Post op day 1 . s/p Guillotine amputation Lt foot .. doing very well , no bleeding and BS is 160 this Am .. - Past Medical Family Social History Past Med/Fam/Surg Hx: No changes since H&P Allergies: Allergies No Known Drug Allergies Allergy (Verified 06/07/18 19:58) - Review Of Systems ROS: No change since H&P - Vital Signs Vital Signs: Temperature 98.7 F Pulse Rate [Bilateral Radial] 85 Pulse Rate 80 Respiratory Rate 20 Blood Pressure [Right Arm] 167/102 Blood Pressure [Left Arm] 139/82 Blood Pressure 166/97 O2 Sat by Pulse Oximetry 99 - Physical Exam Oriented: Normal Eyes: Normal Ear: Normal Nose: Normal Throat: Normal Respiratory: Normal Cardiovascular: Normal. negative: S3, S4, Murmur : Normal GI:Auscultation: Normal GI:Palpation: Normal GI: Tenderness: Normal Skin: Tender, Hot (s/p foot amputation..), Wound Musculoskeletal: Left, Foot, Swelling, Tender Psychiatric: Normal Mood Description: Calm Affect: Normal Speech Pattern: Clear, Appropriate - Laboratory and Diagnostics Result Diagrams: 09/01/18 04:35 09/01/18 04:35 Labs: 08/31/18 11:00 Surgery Gram Stain - Final 08/31/18 11:00 Surgery Wound Culture - Preliminary Laboratory WBC 5.9 X10^3/uL (3.6-10.0) 09/01/18 04:35 RBC 3.48 X10^6/uL (4.7-6.0) L 09/01/18 04:35 Hgb 10.4 g/dL (13.5-18.0) L 09/01/18 04:35 Hct 29.7 % (42.0-54.0) L 09/01/18 04:35 MCV 85.4 fL (80.0-100.0) 09/01/18 04:35 MCH 30.0 pg (27.0-34.0) 09/01/18 04:35 MCHC 35.2 g/dL (33.0-35.0) H 09/01/18 04:35 RDW 13.4 % (11.6-16.5) 09/01/18 04:35 Plt Count 221 X10^3/uL (150.0-450.0) 09/01/18 04:35 Plt Count Comment Adequate (ADEQUATE) 08/30/18 04:48 MPV 8.2 fL (7.4-11.0) 09/01/18 04:35 Neut % (Auto) 51.6 % (42.0-75.0) 09/01/18 04:35 Lymph % (Auto) 36.6 % (21.0-51.0) 09/01/18 04:35 [place] % (Auto) 7.2 % (0.0-13.0) 09/01/18 04:35 Eos % (Auto) 4.0 % (0.9-2.9) H 09/01/18 04:35 Baso % (Auto) 0.6 % (0.2-1.0) 09/01/18 04:35 Neut # (Auto) 3.1 x10^3/uL (2.2-4.8) 09/01/18 04:35 Lymph # (Auto) 2.2 X10^3/uL (1.3-2.9) 09/01/18 04:35 [place] # (Auto) 0.4 x10^3/uL (0.3-0.8) 09/01/18 04:35 Eos # (Auto) 0.2 x10^3/uL (0.0-0.2) 09/01/18 04:35 Baso # (Auto) 0.0 X10^3/uL (0.0-0.1) 09/01/18 04:35 Absolute Nucleated RBC 0.1 /100WBC 09/01/18 04:35 Total Counted 100 08/30/18 04:48 Neutrophils % (Manual) 37 % (39-76) L 08/30/18 04:48 Lymphocytes % (Manual) 50 % (13-43) H 08/30/18 04:48 Monocytes % (Manual) 8 % (4-9) 08/30/18 04:48 Eosinophils % (Manual) 5 % (0-6) 08/30/18 04:48 Plt Morphology Comment Normal (NORMAL) 08/30/18 04:48 RBC Morphology Normal (NORMAL) 08/30/18 04:48 Sodium 137 mmol/L (136-145) 09/01/18 04:35 Corrected Sodium 141 mmol/L (136-145) 09/01/18 04:35 Potassium 3.6 mmol/L (3.5-5.1) 09/01/18 04:35 Chloride 105 mmol/L (98-107) 09/01/18 04:35 Carbon Dioxide 24.4 mmol/L (21-32) 09/01/18 04:35 BUN 12 mg/dL (7-18) 09/01/18 04:35 Creatinine 1.37 mg/dL (0.70-1.30) H 09/01/18 04:35 Est GFR (MDRD) Af Amer > 60 (>60) 09/01/18 04:35 Est GFR (MDRD) Non-Af 60 (>60) 09/01/18 04:35 Glucose 272 mg/dL (65-99) H 09/01/18 04:35 POC Glucose (mg/dL) 160 mg/dL (65-99) H 09/01/18 11:54 Calcium 8.0 mg/dL (8.5-10.1) L 09/01/18 04:35 Corrected Calcium 9.5 mg/dL (8.5-10.1) 09/01/18 04:35 Magnesium 2.0 mg/dL (1.7-2.9) 08/31/18 04:50 Total Bilirubin 0.50 mg/dL (0.2-1.0) 09/01/18 04:35 AST 13 Units/L (15-37) L 09/01/18 04:35 ALT 13 Units/L (12-78) 09/01/18 04:35 Alkaline Phosphatase 26 Units/L (46-116) L 09/01/18 04:35 Total Protein 5.3 g/dL (6.4-8.2) L 09/01/18 04:35 Albumin 2.1 g/dL (3.4-5.0) L 09/01/18 04:35 Globulin 3.2 g/dL (2.5-4.5) 09/01/18 04:35 Albumin/Globulin Ratio 0.7 Ratio (1.1-2.1) L 09/01/18 04:35 Triglycerides 258 mg/dL (0-150) H 08/30/18 04:45 Cholesterol 221 mg/dL (0-200) H 08/30/18 04:45 LDL Cholesterol, Calc 118 mg/dL (0-100) H 08/30/18 04:45 HDL Cholesterol 51 mg/dL (40-60) 08/30/18 04:45 Cholesterol/HDL Ratio 4.3 (0.0-5.0) 08/30/18 04:45 Vancomycin Trough 12.5 ug/mL (15-20) L 08/31/18 08:37 Tissue Pathology To follow 08/31/18 11:00 - Assessment and Plan 1: osteomyelitis Lt foot with chronic non healing foot ulcer..s/p Lt foot amputation. 2: DM with complications 3: Chronic Kidney Disease . 4: HTN 5: severe adiabetic neuropathy . 6: EKG changes . 7: non compliance. Post op Guillotine amputation Lt foot with open wound for now. when the swelling is down and the infection is controlled will perform. formal BKA Lt foot - Problem Patient Problems: Patient Problems Hypertension (Acute) I10 Hypokalemia (Acute) E87.6
[2018-09-01] MEDS: COLACE CAP 100 MG PO SCH (21:11)
[2018-09-01] MEDS: BENADRYL INJ 50 MG VIAL IVP PRN (21:14)
[2018-09-01] MEDS: SNACK - Diabetic Appropriate PO SCH (21:48)
[2018-09-02] MEDS: DILAUDID INJ IVP PRN ×2 (04:01→20:46)
[2018-09-02] MEDS: BENADRYL INJ 50 MG VIAL IVP PRN ×2 (04:02→20:49)
[2018-09-02] MEDS: NS 1000 ML 1,000 ML IV SCH ×2 (05:12→05:55)
[2018-09-02 05:54] LABS: BASOPHILS % (AUTO) 0.7 % (0.2-1.0); EOSINOPHILS # (AUTO) 0.2 x10^3/uL (0.0-0.2); EOSINOPHILS % (AUTO) 3.3 % (0.9-2.9); HEMATOCRIT 30.2 % (42.0-54.0); HEMOGLOBIN 10.7 g/dL (13.5-18.0); LYMPHOCYTES # (AUTO) 2.2 X10^3/uL (1.3-2.9); MEAN CORPUSCULAR HEMOGLOBIN 30.4 pg (27.0-34.0); MEAN CORPUSCULAR HGB CONC 35.6 g/dL (33.0-35.0); MEAN CORPUSCULAR VOLUME 85.4 fL (80.0-100.0); MEAN PLATELET VOLUME 8.1 fL (7.4-11.0); MONOCYTES # (AUTO) 0.6 x10^3/uL (0.3-0.8); MONOCYTES % (AUTO) 9.1 % (0.0-13.0); NEUTROPHILS # (AUTO) 3.1 x10^3/uL (2.2-4.8); NEUTROPHILS % (AUTO) 50.9 % (42.0-75.0); PLATELET COUNT 240 X10^3/uL (150.0-450.0); RED BLOOD COUNT 3.54 X10^6/uL (4.7-6.0); RED CELL DISTRIBUTION WIDTH 13.3 % (11.6-16.5); WHITE BLOOD COUNT 6.2 X10^3/uL (3.6-10.0)
[2018-09-02 06:11] LABS: ALANINE AMINOTRANSFERASE 13 Units/L (12-78); ALBUMIN 2.2 g/dL (3.4-5.0); ALKALINE PHOSPHATASE 25 Units/L (46-116); ASPARTATE AMINO TRANSFERASE 17 Units/L (15-37); BLOOD UREA NITROGEN 13 mg/dL (7-18); CALCIUM 7.9 mg/dL (8.5-10.1); CARBON DIOXIDE 24.7 mmol/L (21-32); CHLORIDE 106 mmol/L (98-107); COR CA(FOR HYPOALB) 9.3 mg/dL (8.5-10.1); SODIUM 139 mmol/L (136-145); TOTAL PROTEIN 5.7 g/dL (6.4-8.2); eGFR NON BLACK RACES > 60 (>60)
[2018-09-02] MEDS: K-DUR TAB 20 MEQ PO PRN (06:42)
[2018-09-02] MEDS: LEVEMIR SC SCH ×2 (09:12→20:48)
[2018-09-02] MEDS: VASOTEC TAB 5 MG PO SCH (09:13)
[2018-09-02] MEDS: LOVENOX INJ 40 MG SYR SC SCH (09:13)
[2018-09-02] MEDS: ALBUMIN HUMAN 25%- 100 ML 100 ML IV SCH (09:13)
[2018-09-02] MEDS: NORVASC TAB 5 MG PO SCH (09:14)
[2018-09-02 09:21] LABS: CREATININE 1.31 mg/dL (0.70-1.30); VANCOMYCIN,TROUGH 16.5 ug/mL (15-20)
--- NOTE | 2018-09-02 09:45 | PCM.PROG ---
Progress Note - Progress Note for Day of Date of Exam: 09/01/18 - Subjective Subjective: IS STATUS POST DAY ONE AMPUTATION OF THE LEFT FOOT DUE TO SEVERE OSTEOMYELITIS WITH CHRONIC NON HEALING FOOT ULCER. AMPUTATION WAS ABOVE THE ANKLE. TODAY, HE IS ALERT AND ORIENTED, LYING IN BED ON MORNING ROUNDS. THERE IS A DRESSING NOTED TO LEFT LOWER EXTREMITY. DRESSING IS DRY AND INTACT AT THIS TIME. HIS VITALS TODAY ARE 98.7-85-20-99%-167/92. BLOOD PRESSURE HAS SLIGHTLY DECREASED WITH CHANGES MADE TO MEDICATIONS. LABS WERE OBTAINED THIS MORNING. ABNORMAL LAB VALUES INCLUDE THE FOLLOWING: RBC 3.45, HGB 10.4, HCT 29.7, CREATININE 1.37, GLUCOSE 272, CALCIUM 8.0, AST 13, ALK PHOS 26, TOTAL PROTEIN 5.3, ALBUMIN 2.1. HE IS ALSO CURRENTLY RECEIVING VANCOMYCIN 1GM IV Q12H. IS MONITORING WOUND AND WOUND CARE. TODAY, WE WILL CONTINUE WITH CURRENT PLAN OF CARE AND MONITOR HIS BLOOD PRESSURE AND BLOOD GLUCOSE LEVELS. OTHERWISE, WE WILL CONTINUE TO MONITOR PATIENT AND FOLLOW UP WITH AM LABS. - Past Medical Family Social History Past Med/Fam/Surg Hx: No changes since H&P Allergies: Allergies No Known Drug Allergies Allergy (Verified 06/07/18 19:58) - Review of Systems ROS: No change since H&P - Vital Signs and I&O's Vital Signs: Temperature 99 F Pulse Rate [Bilateral Radial] 82 Pulse Rate 80 Respiratory Rate 18 Blood Pressure [Right Arm] 158/93 Blood Pressure [Left Arm] 139/82 Blood Pressure 166/97 O2 Sat by Pulse Oximetry 98 Intake and Output: Intake & Output 08/30/18 08/31/18 09/01/18 09/02/18 11:59 11:59 11:59 11:59 Intake Total 2300 / 2300 4680 / 4680 3060 / 3060 3380 / 3380 Output Total 800 / 800 2009 2452 / 2452 1725 / 1725 Balance 1500 / 1500 2670 / 2670 608 / 608 1655 / 1655 - Physical Exam Oriented: Normal Eyes: Normal Ear: Normal Nose: Normal Throat: Normal Respiratory: Normal Cardiovascular: Normal. negative: S3, S4, Murmur : Normal Auscultation: Bowel Sounds: Normal Palpation: Normal Tenderness: Normal Skin: Tender, Hot (s/p foot amputation..), Wound Musculoskeletal: Left, Foot, Swelling, Tender Psychiatric: Normal Mood Description: Calm Affect: Normal Speech Pattern: Clear, Appropriate - Laboratory and Diagnostics Result Diagrams: 09/02/18 05:03 09/02/18 08:48 Labs: 08/31/18 11:00 Surgery Gram Stain - Final 08/31/18 11:00 Surgery Wound Culture - Preliminary Laboratory WBC 6.2 X10^3/uL (3.6-10.0) 09/02/18 05:03 RBC 3.54 X10^6/uL (4.7-6.0) L 09/02/18 05:03 Hgb 10.7 g/dL (13.5-18.0) L 09/02/18 05:03 Hct 30.2 % (42.0-54.0) L 09/02/18 05:03 MCV 85.4 fL (80.0-100.0) 09/02/18 05:03 MCH 30.4 pg (27.0-34.0) 09/02/18 05:03 MCHC 35.6 g/dL (33.0-35.0) H 09/02/18 05:03 RDW 13.3 % (11.6-16.5) 09/02/18 05:03 Plt Count 240 X10^3/uL (150.0-450.0) 09/02/18 05:03 Plt Count Comment Adequate (ADEQUATE) 08/30/18 04:48 MPV 8.1 fL (7.4-11.0) 09/02/18 05:03 Neut % (Auto) 50.9 % (42.0-75.0) 09/02/18 05:03 Lymph % (Auto) 36.0 % (21.0-51.0) 09/02/18 05:03 [place] % (Auto) 9.1 % (0.0-13.0) 09/02/18 05:03 Eos % (Auto) 3.3 % (0.9-2.9) H 09/02/18 05:03 Baso % (Auto) 0.7 % (0.2-1.0) 09/02/18 05:03 Neut # (Auto) 3.1 x10^3/uL (2.2-4.8) 09/02/18 05:03 Lymph # (Auto) 2.2 X10^3/uL (1.3-2.9) 09/02/18 05:03 [place] # (Auto) 0.6 x10^3/uL (0.3-0.8) 09/02/18 05:03 Eos # (Auto) 0.2 x10^3/uL (0.0-0.2) 09/02/18 05:03 Baso # (Auto) 0.0 X10^3/uL (0.0-0.1) 09/02/18 05:03 Absolute Nucleated RBC 0.0 /100WBC 09/02/18 05:03 Total Counted 100 08/30/18 04:48 Neutrophils % (Manual) 37 % (39-76) L 08/30/18 04:48 Lymphocytes % (Manual) 50 % (13-43) H 08/30/18 04:48 Monocytes % (Manual) 8 % (4-9) 08/30/18 04:48 Eosinophils % (Manual) 5 % (0-6) 08/30/18 04:48 Plt Morphology Comment Normal (NORMAL) 08/30/18 04:48 RBC Morphology Normal (NORMAL) 08/30/18 04:48 Sodium 139 mmol/L (136-145) 09/02/18 05:03 Corrected Sodium TNP 09/02/18 05:03 Potassium 3.2 mmol/L (3.5-5.1) L 09/02/18 05:03 Chloride 106 mmol/L (98-107) 09/02/18 05:03 Carbon Dioxide 24.7 mmol/L (21-32) 09/02/18 05:03 BUN 13 mg/dL (7-18) 09/02/18 05:03 Creatinine 1.31 mg/dL (0.70-1.30) H 09/02/18 08:48 Est GFR (MDRD) Af Amer > 60 (>60) 09/02/18 05:03 Est GFR (MDRD) Non-Af > 60 (>60) 09/02/18 05:03 Glucose 97 mg/dL (65-99) 09/02/18 05:03 POC Glucose (mg/dL) 83 mg/dL (65-99) 09/02/18 05:25 Calcium 7.9 mg/dL (8.5-10.1) L 09/02/18 05:03 Corrected Calcium 9.3 mg/dL (8.5-10.1) 09/02/18 05:03 Magnesium 2.0 mg/dL (1.7-2.9) 08/31/18 04:50 Total Bilirubin 1.10 mg/dL (0.2-1.0) H 09/02/18 05:03 AST 17 Units/L (15-37) 09/02/18 05:03 ALT 13 Units/L (12-78) 09/02/18 05:03 Alkaline Phosphatase 25 Units/L (46-116) L 09/02/18 05:03 Total Protein 5.7 g/dL (6.4-8.2) L 09/02/18 05:03 Albumin 2.2 g/dL (3.4-5.0) L 09/02/18 05:03 Globulin 3.5 g/dL (2.5-4.5) 09/02/18 05:03 Albumin/Globulin Ratio 0.6 Ratio (1.1-2.1) L 09/02/18 05:03 Triglycerides 258 mg/dL (0-150) H 08/30/18 04:45 Cholesterol 221 mg/dL (0-200) H 08/30/18 04:45 LDL Cholesterol, Calc 118 mg/dL (0-100) H 08/30/18 04:45 HDL Cholesterol 51 mg/dL (40-60) 08/30/18 04:45 Cholesterol/HDL Ratio 4.3 (0.0-5.0) 08/30/18 04:45 Vancomycin Trough 16.5 ug/mL (15-20) 09/02/18 08:48 Tissue Pathology To follow 08/31/18 11:00 - Plan (1) Unilateral amputation of left foot Status: Acute Qualifiers: Encounter type: initial encounter Qualified Code(s): S98.912A - Complete traumatic amputation of left foot, level unspecified, initial encounter Plan: WOUND CARE, CONTINUE TO MONITOR (2) Osteomyelitis Status: Acute Qualifiers: Osteomyelitis type: unspecified type Osteomyelitis location: foot Laterality: left Qualified Code(s): M86.9 - Osteomyelitis, unspecified Plan: CONTINUE IV ANTIBIOTICS, CONTINUE TO MONITOR (3) Cellulitis of left foot Status: Acute Plan: CONTINUE IV ANTIBIOTICS AND WOUND CARE (4) Diabetes Status: Acute Qualifiers: Diabetes mellitus type: type 2 Diabetes mellitus residential insulin use: unspecified terminal supervisor insulin use status Diabetes mellitus complication status : with skin complications Diabetes mellitus complication detail: with foot ulcer Qualified Code(s): E11.621 - Type 2 diabetes mellitus with foot ulcer; L97.509 - Non-pressure chronic ulcer of other part of unspecified foot with unspecified severity Plan: LEVEMIR 15UNITS SC BID, HUMULIN R SLIDING SCALE, MONITOR OTBS (5) Hypertension Status: Acute Qualifiers: Hypertension type: essential hypertension Qualified Code(s): I10 - Essential (primary) hypertension Plan: NORVASC 10MG DAILY, VASOTEC 10MG PO BID, CONTINUE TO MONITOR (6) Hypokalemia Status: Acute
--- NOTE | 2018-09-02 10:26 | DR.PROGNOT ---
Hospital Progress Notes - Progress Note for Day of: Progress Note Date: 09/02/18 - Chief Complaint Chief Complaint: Post op day 2. s/p Guillotine amputation Lt foot .. doing very well , no bleeding and BS is 83 this Am. BUN 13 ,Creatinine 1.31. afebrile . culture : rare G+ Cocci . vanco level 12.5 .( no need to change dose , infection is well controlled ) - Past Medical Family Social History Past Med/Fam/Surg Hx: No changes since H&P Allergies: Allergies No Known Drug Allergies Allergy (Verified 06/07/18 19:58) - Review Of Systems ROS: No change since H&P - Vital Signs Vital Signs: Temperature 98.6 F Pulse Rate [Bilateral Radial] 81 Pulse Rate 80 Respiratory Rate 18 Blood Pressure [Right Arm] 180/97 Blood Pressure [Left Arm] 176/96 Blood Pressure 166/97 O2 Sat by Pulse Oximetry 98 - Physical Exam Oriented: Normal Eyes: Normal Ear: Normal Nose: Normal Throat: Normal Respiratory: Normal Cardiovascular: Normal. negative: S3, S4, Murmur : Normal GI:Auscultation: Normal GI:Palpation: Normal GI: Tenderness: Normal Skin: Tender, Hot (s/p foot amputation , no drainage , leg edema is better , 1+), Wound Musculoskeletal: Left, Foot, Swelling, Tender Psychiatric: Normal Mood Description: Calm Affect: Normal Speech Pattern: Clear, Appropriate - Laboratory and Diagnostics Result Diagrams: 09/02/18 05:03 09/02/18 08:48 Labs: 08/31/18 11:00 Surgery Gram Stain - Final 08/31/18 11:00 Surgery Wound Culture - Preliminary Laboratory WBC 6.2 X10^3/uL (3.6-10.0) 09/02/18 05:03 RBC 3.54 X10^6/uL (4.7-6.0) L 09/02/18 05:03 Hgb 10.7 g/dL (13.5-18.0) L 09/02/18 05:03 Hct 30.2 % (42.0-54.0) L 09/02/18 05:03 MCV 85.4 fL (80.0-100.0) 09/02/18 05:03 MCH 30.4 pg (27.0-34.0) 09/02/18 05:03 MCHC 35.6 g/dL (33.0-35.0) H 09/02/18 05:03 RDW 13.3 % (11.6-16.5) 09/02/18 05:03 Plt Count 240 X10^3/uL (150.0-450.0) 09/02/18 05:03 Plt Count Comment Adequate (ADEQUATE) 08/30/18 04:48 MPV 8.1 fL (7.4-11.0) 09/02/18 05:03 Neut % (Auto) 50.9 % (42.0-75.0) 09/02/18 05:03 Lymph % (Auto) 36.0 % (21.0-51.0) 09/02/18 05:03 [place] % (Auto) 9.1 % (0.0-13.0) 09/02/18 05:03 Eos % (Auto) 3.3 % (0.9-2.9) H 09/02/18 05:03 Baso % (Auto) 0.7 % (0.2-1.0) 09/02/18 05:03 Neut # (Auto) 3.1 x10^3/uL (2.2-4.8) 09/02/18 05:03 Lymph # (Auto) 2.2 X10^3/uL (1.3-2.9) 09/02/18 05:03 [place] # (Auto) 0.6 x10^3/uL (0.3-0.8) 09/02/18 05:03 Eos # (Auto) 0.2 x10^3/uL (0.0-0.2) 09/02/18 05:03 Baso # (Auto) 0.0 X10^3/uL (0.0-0.1) 09/02/18 05:03 Absolute Nucleated RBC 0.0 /100WBC 09/02/18 05:03 Total Counted 100 08/30/18 04:48 Neutrophils % (Manual) 37 % (39-76) L 08/30/18 04:48 Lymphocytes % (Manual) 50 % (13-43) H 08/30/18 04:48 Monocytes % (Manual) 8 % (4-9) 08/30/18 04:48 Eosinophils % (Manual) 5 % (0-6) 08/30/18 04:48 Plt Morphology Comment Normal (NORMAL) 08/30/18 04:48 RBC Morphology Normal (NORMAL) 08/30/18 04:48 Sodium 139 mmol/L (136-145) 09/02/18 05:03 Corrected Sodium TNP 09/02/18 05:03 Potassium 3.2 mmol/L (3.5-5.1) L 09/02/18 05:03 Chloride 106 mmol/L (98-107) 09/02/18 05:03 Carbon Dioxide 24.7 mmol/L (21-32) 09/02/18 05:03 BUN 13 mg/dL (7-18) 09/02/18 05:03 Creatinine 1.31 mg/dL (0.70-1.30) H 09/02/18 08:48 Est GFR (MDRD) Af Amer > 60 (>60) 09/02/18 05:03 Est GFR (MDRD) Non-Af > 60 (>60) 09/02/18 05:03 Glucose 97 mg/dL (65-99) 09/02/18 05:03 POC Glucose (mg/dL) 83 mg/dL (65-99) 09/02/18 05:25 Calcium 7.9 mg/dL (8.5-10.1) L 09/02/18 05:03 Corrected Calcium 9.3 mg/dL (8.5-10.1) 09/02/18 05:03 Magnesium 2.0 mg/dL (1.7-2.9) 08/31/18 04:50 Total Bilirubin 1.10 mg/dL (0.2-1.0) H 09/02/18 05:03 AST 17 Units/L (15-37) 09/02/18 05:03 ALT 13 Units/L (12-78) 09/02/18 05:03 Alkaline Phosphatase 25 Units/L (46-116) L 09/02/18 05:03 Total Protein 5.7 g/dL (6.4-8.2) L 09/02/18 05:03 Albumin 2.2 g/dL (3.4-5.0) L 09/02/18 05:03 Globulin 3.5 g/dL (2.5-4.5) 09/02/18 05:03 Albumin/Globulin Ratio 0.6 Ratio (1.1-2.1) L 09/02/18 05:03 Triglycerides 258 mg/dL (0-150) H 08/30/18 04:45 Cholesterol 221 mg/dL (0-200) H 08/30/18 04:45 LDL Cholesterol, Calc 118 mg/dL (0-100) H 08/30/18 04:45 HDL Cholesterol 51 mg/dL (40-60) 08/30/18 04:45 Cholesterol/HDL Ratio 4.3 (0.0-5.0) 08/30/18 04:45 Vancomycin Trough 16.5 ug/mL (15-20) 09/02/18 08:48 Tissue Pathology To follow 08/31/18 11:00 - Assessment and Plan 1: osteomyelitis Lt foot with chronic non healing foot ulcer..s/p Lt foot amputation. 2: DM with complications 3: Chronic Kidney Disease . 4: HTN 5: severe adiabetic neuropathy . 6: EKG changes . 7: non compliance. Post op Guillotine amputation Lt foot with open wound for now. when the swelling is down and the infection is controlled will perform. formal BKA Lt foot - Problem Patient Problems: Patient Problems Hypertension (Acute) I10 Hypokalemia (Acute) E87.6 Unilateral amputation of left foot (Acute) S98.912A
[2018-09-02] MEDS: VANCOMYCIN HCL 1 GM VIAL 1 G in D5W 250 ML IV 250 ML IV SCH ×2 (10:30→20:46)
[2018-09-02] MEDS: HumuLIN R SUBCUT PRN ×2 (12:14→21:50)
[2018-09-02] MEDS: NORCO 5/325 MG TAB PO PRN (12:14)
[2018-09-02] MEDS: COLACE CAP 100 MG PO SCH (20:47)
[2018-09-02] MEDS: VASOTEC TAB 20 MG PO SCH (20:47)
[2018-09-02] MEDS: SNACK - Diabetic Appropriate PO SCH (21:49)
[2018-09-03 05:11] LABS: BASOPHILS % (AUTO) 0.7 % (0.2-1.0); EOSINOPHILS # (AUTO) 0.2 x10^3/uL (0.0-0.2); EOSINOPHILS % (AUTO) 3.5 % (0.9-2.9); LYMPHOCYTES # (AUTO) 1.6 X10^3/uL (1.3-2.9); LYMPHOCYTES % (AUTO) 32.8 % (21.0-51.0); MEAN CORPUSCULAR HEMOGLOBIN 30.4 pg (27.0-34.0); MEAN CORPUSCULAR HGB CONC 35.9 g/dL (33.0-35.0); MEAN CORPUSCULAR VOLUME 84.9 fL (80.0-100.0); MEAN PLATELET VOLUME 7.9 fL (7.4-11.0); MONOCYTES # (AUTO) 0.4 x10^3/uL (0.3-0.8); MONOCYTES % (AUTO) 7.8 % (0.0-13.0); NEUTROPHILS # (AUTO) 2.7 x10^3/uL (2.2-4.8); NEUTROPHILS % (AUTO) 55.2 % (42.0-75.0); PLATELET COUNT 231 X10^3/uL (150.0-450.0); RED CELL DISTRIBUTION WIDTH 12.9 % (11.6-16.5); WHITE BLOOD COUNT 4.9 X10^3/uL (3.6-10.0)
[2018-09-03 05:28] LABS: ALANINE AMINOTRANSFERASE 12 Units/L (12-78); ALBUMIN 2.2 g/dL (3.4-5.0); ALKALINE PHOSPHATASE 26 Units/L (46-116); ASPARTATE AMINO TRANSFERASE 15 Units/L (15-37); BLOOD UREA NITROGEN 14 mg/dL (7-18); CARBON DIOXIDE 27.8 mmol/L (21-32); CHLORIDE 103 mmol/L (98-107); COR CA(FOR HYPOALB) 9.4 mg/dL (8.5-10.1); COR NA(FOR HYPERGLY) 140 mmol/L (136-145); CREATININE 1.41 mg/dL (0.70-1.30); SODIUM 138 mmol/L (136-145); TOTAL PROTEIN 5.7 g/dL (6.4-8.2); eGFR NON BLACK RACES 58 (>60)
[2018-09-03] MEDS: DILAUDID INJ IVP PRN ×3 (06:29→22:52)
[2018-09-03] MEDS: HumuLIN R SUBCUT PRN ×2 (06:29→13:00)
[2018-09-03] MEDS: KLOR-CON PO PRN (06:30)
[2018-09-03] MEDS: ALBUMIN HUMAN 25%- 100 ML 100 ML IV SCH (09:00)
[2018-09-03] MEDS: LOVENOX INJ 40 MG SYR SC SCH (09:00)
[2018-09-03] MEDS: NORVASC TAB 5 MG PO SCH (09:02)
[2018-09-03] MEDS: LEVEMIR SC SCH ×2 (09:02→20:48)
[2018-09-03] MEDS: VASOTEC TAB 20 MG PO SCH ×2 (09:03→20:47)
[2018-09-03] MEDS: VANCOMYCIN HCL 1 GM VIAL 1 G in D5W 250 ML IV 250 ML IV SCH ×2 (09:03→21:40)
[2018-09-03] MEDS: NORCO 5/325 MG TAB PO PRN ×2 (09:33→18:57)
[2018-09-03] MEDS: COLACE CAP 100 MG PO SCH (20:44)
[2018-09-03] MEDS: SNACK - Diabetic Appropriate PO SCH (20:45)
[2018-09-03 21:02] LABS: CREATININE 1.71 mg/dL (0.70-1.30); VANCOMYCIN,TROUGH 16.8 ug/mL (15-20)
[2018-09-04 05:06] LABS: BASOPHILS % (AUTO) 0.8 % (0.2-1.0); EOSINOPHILS # (AUTO) 0.1 x10^3/uL (0.0-0.2); EOSINOPHILS % (AUTO) 2.8 % (0.9-2.9); HEMATOCRIT 26.4 % (42.0-54.0); HEMOGLOBIN 9.4 g/dL (13.5-18.0); LYMPHOCYTES # (AUTO) 1.2 X10^3/uL (1.3-2.9); LYMPHOCYTES % (AUTO) 27.7 % (21.0-51.0); MEAN CORPUSCULAR HEMOGLOBIN 30.5 pg (27.0-34.0); MEAN CORPUSCULAR HGB CONC 35.6 g/dL (33.0-35.0); MEAN CORPUSCULAR VOLUME 85.6 fL (80.0-100.0); MEAN PLATELET VOLUME 8.2 fL (7.4-11.0); MONOCYTES # (AUTO) 0.6 x10^3/uL (0.3-0.8); MONOCYTES % (AUTO) 12.8 % (0.0-13.0); NEUTROPHILS # (AUTO) 2.4 x10^3/uL (2.2-4.8); NEUTROPHILS % (AUTO) 55.9 % (42.0-75.0); PLATELET COUNT 208 X10^3/uL (150.0-450.0); RED BLOOD COUNT 3.08 X10^6/uL (4.7-6.0); RED CELL DISTRIBUTION WIDTH 13.1 % (11.6-16.5); WHITE BLOOD COUNT 4.3 X10^3/uL (3.6-10.0)
[2018-09-04 05:21] LABS: ALANINE AMINOTRANSFERASE 13 Units/L (12-78); ALBUMIN 2.2 g/dL (3.4-5.0); ALKALINE PHOSPHATASE 30 Units/L (46-116); ASPARTATE AMINO TRANSFERASE 14 Units/L (15-37); BLOOD UREA NITROGEN 17 mg/dL (7-18); CALCIUM 8.1 mg/dL (8.5-10.1); CARBON DIOXIDE 27.1 mmol/L (21-32); CHLORIDE 102 mmol/L (98-107); COR CA(FOR HYPOALB) 9.5 mg/dL (8.5-10.1); COR NA(FOR HYPERGLY) 140 mmol/L (136-145); CREATININE 1.58 mg/dL (0.70-1.30); SODIUM 136 mmol/L (136-145); TOTAL PROTEIN 5.8 g/dL (6.4-8.2); eGFR NON BLACK RACES 51 (>60)
[2018-09-04] MEDS: HumuLIN R SUBCUT PRN ×2 (05:49→20:56)
[2018-09-04] MEDS: VANCOMYCIN HCL 1 GM VIAL 1 G in D5W 250 ML IV 250 ML IV SCH ×2 (08:44→20:55)
[2018-09-04] MEDS: ALBUMIN HUMAN 25%- 100 ML 100 ML IV SCH (08:44)
[2018-09-04] MEDS: LEVEMIR SC SCH ×2 (08:48→20:56)
[2018-09-04] MEDS: VASOTEC TAB 20 MG PO SCH ×2 (08:49→20:56)
[2018-09-04] MEDS: LOVENOX INJ 40 MG SYR SC SCH (08:49)
[2018-09-04] MEDS: NORVASC TAB 5 MG PO SCH (08:49)
[2018-09-04] MEDS: DILAUDID INJ IVP PRN ×3 (08:55→20:57)
--- NOTE | 2018-09-04 09:31 | DR.PROGNOT ---
Hospital Progress Notes - Progress Note for Day of: Progress Note Date: 09/04/18 - Chief Complaint Chief Complaint: Post op day 4. s/p Guillotine amputation Lt foot .. doing very well , no bleeding and BS is better controlled this Am. BUN 13 ,Creatinine 1.31. afebrile . culture : rare G+ Cocci . vanco level 12.5 .( no need to change dose , infection is well controlled ) - Past Medical Family Social History Past Med/Fam/Surg Hx: No changes since H&P Allergies: Allergies No Known Drug Allergies Allergy (Verified 06/07/18 19:58) - Review Of Systems ROS: No change since H&P - Vital Signs Vital Signs: Temperature 98.4 F Pulse Rate [Bilateral Radial] 86 Pulse Rate 80 Respiratory Rate 20 Blood Pressure [Right Arm] 151/93 Blood Pressure [Left Arm] 162/90 Blood Pressure 166/97 O2 Sat by Pulse Oximetry 96 - Physical Exam Oriented: Normal Eyes: Normal Ear: Normal Nose: Normal Throat: Normal Respiratory: Normal Cardiovascular: Normal. negative: S3, S4, Murmur : Normal GI:Auscultation: Normal GI:Palpation: Normal GI: Tenderness: Normal Skin: Tender, Hot (s/p foot amputation , no drainage , leg edema is better , 1+), Wound Musculoskeletal: Left, Foot, Swelling, Tender Psychiatric: Normal Mood Description: Calm Affect: Normal Speech Pattern: Clear, Appropriate - Laboratory and Diagnostics Result Diagrams: 09/04/18 04:40 09/04/18 04:40 Labs: 08/31/18 11:00 Surgery Gram Stain - Final 08/31/18 11:00 Surgery Wound Culture - Preliminary Laboratory WBC 4.3 X10^3/uL (3.6-10.0) 09/04/18 04:40 RBC 3.08 X10^6/uL (4.7-6.0) L 09/04/18 04:40 Hgb 9.4 g/dL (13.5-18.0) L 09/04/18 04:40 Hct 26.4 % (42.0-54.0) L 09/04/18 04:40 MCV 85.6 fL (80.0-100.0) 09/04/18 04:40 MCH 30.5 pg (27.0-34.0) 09/04/18 04:40 MCHC 35.6 g/dL (33.0-35.0) H 09/04/18 04:40 RDW 13.1 % (11.6-16.5) 09/04/18 04:40 Plt Count 208 X10^3/uL (150.0-450.0) 09/04/18 04:40 Plt Count Comment Adequate (ADEQUATE) 08/30/18 04:48 MPV 8.2 fL (7.4-11.0) 09/04/18 04:40 Neut % (Auto) 55.9 % (42.0-75.0) 09/04/18 04:40 Lymph % (Auto) 27.7 % (21.0-51.0) 09/04/18 04:40 [place] % (Auto) 12.8 % (0.0-13.0) 09/04/18 04:40 Eos % (Auto) 2.8 % (0.9-2.9) 09/04/18 04:40 Baso % (Auto) 0.8 % (0.2-1.0) 09/04/18 04:40 Neut # (Auto) 2.4 x10^3/uL (2.2-4.8) 09/04/18 04:40 Lymph # (Auto) 1.2 X10^3/uL (1.3-2.9) L 09/04/18 04:40 [place] # (Auto) 0.6 x10^3/uL (0.3-0.8) 09/04/18 04:40 Eos # (Auto) 0.1 x10^3/uL (0.0-0.2) 09/04/18 04:40 Baso # (Auto) 0.0 X10^3/uL (0.0-0.1) 09/04/18 04:40 Absolute Nucleated RBC 0.1 /100WBC 09/04/18 04:40 Total Counted 100 08/30/18 04:48 Neutrophils % (Manual) 37 % (39-76) L 08/30/18 04:48 Lymphocytes % (Manual) 50 % (13-43) H 08/30/18 04:48 Monocytes % (Manual) 8 % (4-9) 08/30/18 04:48 Eosinophils % (Manual) 5 % (0-6) 08/30/18 04:48 Plt Morphology Comment Normal (NORMAL) 08/30/18 04:48 RBC Morphology Normal (NORMAL) 08/30/18 04:48 INR Target Range - 09/04/18 04:40 INR 0.97 (0.8-1.3) 09/04/18 04:40 Sodium 136 mmol/L (136-145) 09/04/18 04:40 Corrected Sodium 140 mmol/L (136-145) 09/04/18 04:40 Potassium 3.6 mmol/L (3.5-5.1) 09/04/18 04:40 Chloride 102 mmol/L (98-107) 09/04/18 04:40 Carbon Dioxide 27.1 mmol/L (21-32) 09/04/18 04:40 BUN 17 mg/dL (7-18) 09/04/18 04:40 Creatinine 1.58 mg/dL (0.70-1.30) H 09/04/18 04:40 Est GFR (MDRD) Af Amer > 60 (>60) 09/04/18 04:40 Est GFR (MDRD) Non-Af 51 (>60) L 09/04/18 04:40 Glucose 255 mg/dL (65-99) H 09/04/18 04:40 POC Glucose (mg/dL) 232 mg/dL (65-99) H 09/04/18 05:44 Calcium 8.1 mg/dL (8.5-10.1) L 09/04/18 04:40 Corrected Calcium 9.5 mg/dL (8.5-10.1) 09/04/18 04:40 Magnesium 1.6 mg/dL (1.7-2.9) L 09/03/18 04:45 Total Bilirubin 1.40 mg/dL (0.2-1.0) H 09/04/18 04:40 AST 14 Units/L (15-37) L 09/04/18 04:40 ALT 13 Units/L (12-78) 09/04/18 04:40 Alkaline Phosphatase 30 Units/L (46-116) L 09/04/18 04:40 Total Protein 5.8 g/dL (6.4-8.2) L 09/04/18 04:40 Albumin 2.2 g/dL (3.4-5.0) L 09/04/18 04:40 Globulin 3.6 g/dL (2.5-4.5) 09/04/18 04:40 Albumin/Globulin Ratio 0.6 Ratio (1.1-2.1) L 09/04/18 04:40 Triglycerides 258 mg/dL (0-150) H 08/30/18 04:45 Cholesterol 221 mg/dL (0-200) H 08/30/18 04:45 LDL Cholesterol, Calc 118 mg/dL (0-100) H 08/30/18 04:45 HDL Cholesterol 51 mg/dL (40-60) 08/30/18 04:45 Cholesterol/HDL Ratio 4.3 (0.0-5.0) 08/30/18 04:45 Vancomycin Trough 16.8 ug/mL (15-20) 09/03/18 20:30 Tissue Pathology To follow 08/31/18 11:00 - Assessment and Plan 1: osteomyelitis Lt foot with chronic non healing foot ulcer..s/p Lt foot amputation. 2: DM with complications 3: Chronic Kidney Disease . 4: HTN 5: severe adiabetic neuropathy . 6: EKG changes . 7: non compliance. Post op Guillotine amputation Lt foot with open wound for now. when the swelling is down and the infection is controlled will perform. formal BKA Lt foot - Problem Patient Problems: Patient Problems Hypertension (Acute) I10 Hypokalemia (Acute) E87.6 Unilateral amputation of left foot (Acute) S98.912A
--- NOTE | 2018-09-04 09:42 | DR.PROGNOT ---
Hospital Progress Notes - Chief Complaint Chief Complaint: Post op day 4. s/p Guillotine amputation Lt foot .. doing ve ry well , no bleeding and BS is better controlled this Am. BUN 18 ,Creatinine 1.51.BS 232. afebrile . culture : rare G+ Cocci . vanco level 12.5 .( no need to change dose , infection is well controlled ) - Past Medical Family Social History Past Med/Fam/Surg Hx: No changes since H&P Allergies: Allergies No Known Drug Allergies Allergy (Verified 06/07/18 19:58) - Review Of Systems ROS: No change since H&P - Vital Signs Vital Signs: Temperature 98.4 F Pulse Rate [Bilateral Radial] 86 Pulse Rate 80 Respiratory Rate 20 Blood Pressure [Right Arm] 151/93 Blood Pressure [Left Arm] 162/90 Blood Pressure 166/97 O2 Sat by Pulse Oximetry 96 - Physical Exam Oriented: Normal Eyes: Normal Ear: Normal Nose: Normal Throat: Normal Respiratory: Normal Cardiovascular: Normal. negative: S3, S4, Murmur : Normal GI:Auscultation: Normal GI:Palpation: Normal GI: Tenderness: Normal Skin: Wound, Other (incision is clean , no drainage ) Musculoskeletal: Left, Foot (as above , clean incision , no necrosis or cellulitis), Swelling, Tender Psychiatric: Normal Mood Description: Calm Affect: Normal Speech Pattern: Clear, Appropriate - Laboratory and Diagnostics Result Diagrams: 09/04/18 04:40 09/04/18 04:40 Labs: 08/31/18 11:00 Surgery Gram Stain - Final 08/31/18 11:00 Surgery Wound Culture - Preliminary Laboratory WBC 4.3 X10^3/uL (3.6-10.0) 09/04/18 04:40 RBC 3.08 X10^6/uL (4.7-6.0) L 09/04/18 04:40 Hgb 9.4 g/dL (13.5-18.0) L 09/04/18 04:40 Hct 26.4 % (42.0-54.0) L 09/04/18 04:40 MCV 85.6 fL (80.0-100.0) 09/04/18 04:40 MCH 30.5 pg (27.0-34.0) 09/04/18 04:40 MCHC 35.6 g/dL (33.0-35.0) H 09/04/18 04:40 RDW 13.1 % (11.6-16.5) 09/04/18 04:40 Plt Count 208 X10^3/uL (150.0-450.0) 09/04/18 04:40 Plt Count Comment Adequate (ADEQUATE) 08/30/18 04:48 MPV 8.2 fL (7.4-11.0) 09/04/18 04:40 Neut % (Auto) 55.9 % (42.0-75.0) 09/04/18 04:40 Lymph % (Auto) 27.7 % (21.0-51.0) 09/04/18 04:40 [place] % (Auto) 12.8 % (0.0-13.0) 09/04/18 04:40 Eos % (Auto) 2.8 % (0.9-2.9) 09/04/18 04:40 Baso % (Auto) 0.8 % (0.2-1.0) 09/04/18 04:40 Neut # (Auto) 2.4 x10^3/uL (2.2-4.8) 09/04/18 04:40 Lymph # (Auto) 1.2 X10^3/uL (1.3-2.9) L 09/04/18 04:40 [place] # (Auto) 0.6 x10^3/uL (0.3-0.8) 09/04/18 04:40 Eos # (Auto) 0.1 x10^3/uL (0.0-0.2) 09/04/18 04:40 Baso # (Auto) 0.0 X10^3/uL (0.0-0.1) 09/04/18 04:40 Absolute Nucleated RBC 0.1 /100WBC 09/04/18 04:40 Total Counted 100 08/30/18 04:48 Neutrophils % (Manual) 37 % (39-76) L 08/30/18 04:48 Lymphocytes % (Manual) 50 % (13-43) H 08/30/18 04:48 Monocytes % (Manual) 8 % (4-9) 08/30/18 04:48 Eosinophils % (Manual) 5 % (0-6) 08/30/18 04:48 Plt Morphology Comment Normal (NORMAL) 08/30/18 04:48 RBC Morphology Normal (NORMAL) 08/30/18 04:48 INR Target Range - 09/04/18 04:40 INR 0.97 (0.8-1.3) 09/04/18 04:40 Sodium 136 mmol/L (136-145) 09/04/18 04:40 Corrected Sodium 140 mmol/L (136-145) 09/04/18 04:40 Potassium 3.6 mmol/L (3.5-5.1) 09/04/18 04:40 Chloride 102 mmol/L (98-107) 09/04/18 04:40 Carbon Dioxide 27.1 mmol/L (21-32) 09/04/18 04:40 BUN 17 mg/dL (7-18) 09/04/18 04:40 Creatinine 1.58 mg/dL (0.70-1.30) H 09/04/18 04:40 Est GFR (MDRD) Af Amer > 60 (>60) 09/04/18 04:40 Est GFR (MDRD) Non-Af 51 (>60) L 09/04/18 04:40 Glucose 255 mg/dL (65-99) H 09/04/18 04:40 POC Glucose (mg/dL) 232 mg/dL (65-99) H 09/04/18 05:44 Calcium 8.1 mg/dL (8.5-10.1) L 09/04/18 04:40 Corrected Calcium 9.5 mg/dL (8.5-10.1) 09/04/18 04:40 Magnesium 1.6 mg/dL (1.7-2.9) L 09/03/18 04:45 Total Bilirubin 1.40 mg/dL (0.2-1.0) H 09/04/18 04:40 AST 14 Units/L (15-37) L 09/04/18 04:40 ALT 13 Units/L (12-78) 09/04/18 04:40 Alkaline Phosphatase 30 Units/L (46-116) L 09/04/18 04:40 Total Protein 5.8 g/dL (6.4-8.2) L 09/04/18 04:40 Albumin 2.2 g/dL (3.4-5.0) L 09/04/18 04:40 Globulin 3.6 g/dL (2.5-4.5) 09/04/18 04:40 Albumin/Globulin Ratio 0.6 Ratio (1.1-2.1) L 09/04/18 04:40 Triglycerides 258 mg/dL (0-150) H 08/30/18 04:45 Cholesterol 221 mg/dL (0-200) H 08/30/18 04:45 LDL Cholesterol, Calc 118 mg/dL (0-100) H 08/30/18 04:45 HDL Cholesterol 51 mg/dL (40-60) 08/30/18 04:45 Cholesterol/HDL Ratio 4.3 (0.0-5.0) 08/30/18 04:45 Vancomycin Trough 16.8 ug/mL (15-20) 09/03/18 20:30 Tissue Pathology To follow 08/31/18 11:00 - Assessment and Plan 1: osteomyelitis Lt foot with chronic non healing foot ulcer..s/p Lt foot amputation. 2: DM with complications 3: Chronic Kidney Disease . 4: HTN 5: severe adiabetic neuropathy . 6: EKG changes . 7: non compliance. swelling is down and the infection is controlled. formal BKA Lt foot in am. - Problem Patient Problems: Patient Problems Hypertension (Acute) I10 Hypokalemia (Acute) E87.6 Unilateral amputation of left foot (Acute) S98.912A
[2018-09-04 12:04] LABS: HEMATOCRIT 23.8 % (42.0-54.0); HEMOGLOBIN 8.6 g/dL (13.5-18.0)
[2018-09-04] MEDS: MIRALAX POWDER (1 DOSE 17 G) PO SCH (14:27)
--- NOTE | 2018-09-04 20:14 | PCM.PROG ---
Progress Note - Progress Note for Day of Date of Exam: 09/02/18 - Subjective Subjective: IS STATUS POST DAY TWO AMPUTATION OF THE LEFT FOOT DUE TO SEVERE OSTEOMYELITIS WITH CHRONIC NON HEALING FOOT ULCER. AMPUTATION WAS ABOVE THE ANKLE. TODAY, HE IS ALERT AND ORIENTED, LYING IN BED ON MORNING ROUNDS. THERE IS A DRESSING NOTED TO LEFT LOWER EXTREMITY. DRESSING IS DRY AND INTACT AT THIS TIME. HIS VITALS TODAY ARE 98.6-81-18-98%-180/97. LABS WERE OBTAINED THIS MORNING. ABNORMAL LAB VALUES INCLUDE THE FOLLOWING: RBC 3.54, HGB 10.7, HCT 30.2, POTASSIUM 3.2, CREATININE 1.31, CALCIUM 7.9, TOTAL BILI 1.10, ALK PHOS 25, TOTAL PROTEIN 5.7, ALBUMIN 2.2. WOUND CULTURE IS PENDING. HE IS CURRENTLY RECEIVING VANCOMYCIN 1GM IV Q12H. IS MONITORING WOUND AND WOUND CARE. TODAY, WE WILL INCREASE VASOTEC TO 20MG PO BID. OTHERWISE, WE WILL CONTINUE WITH CURRENT PLAN OF CARE. WE WILL CONTINUE TO MONITOR PATIENT AND FOLLOW UP WITH AM LABS. - Past Medical Family Social History Past Med/Fam/Surg Hx: No changes since H&P Allergies: Allergies No Known Drug Allergies Allergy (Verified 06/07/18 19:58) - Review of Systems ROS: No change since H&P - Vital Signs and I&O's Vital Signs: Temperature 98.6 F Pulse Rate [Bilateral Radial] 88 Pulse Rate 80 Respiratory Rate 18 Blood Pressure [Right Arm] 146/85 Blood Pressure [Left Arm] 162/90 Blood Pressure 166/97 O2 Sat by Pulse Oximetry 100 Intake and Output: Intake & Output 09/02/18 09/03/18 09/04/18 09/05/18 11:59 11:59 11:59 11:59 Intake Total 3380 / 3380 1930 / 1930 960 / 960 930 / 930 Output Total 1725 / 1725 1999 / 1999 300 / 300 400 / 400 Balance 1655 / 1655 -70 / -70 660 / 660 530 / 530 - Physical Exam Oriented: Normal Eyes: Normal Ear: Normal Nose: Normal Throat: Normal Respiratory: Normal Cardiovascular: Normal. negative: S3, S4, Murmur : Normal Auscultation: Bowel Sounds: Normal Tenderness: Normal Skin: Wound, Other (incision is clean , no drainage ) Musculoskeletal: Left, Foot (as above , clean incision , no necrosis or cellulitis), Swelling, Tender Psychiatric: Normal Mood Description: Calm Affect: Normal Speech Pattern: Clear, Appropriate - Laboratory and Diagnostics Result Diagrams: 09/04/18 11:25 09/04/18 04:40 Labs: 08/31/18 11:00 Surgery Gram Stain - Final 08/31/18 11:00 Surgery Wound Culture - Preliminary Laboratory WBC 4.3 X10^3/uL (3.6-10.0) 09/04/18 04:40 RBC 3.08 X10^6/uL (4.7-6.0) L 09/04/18 04:40 Hgb 8.6 g/dL (13.5-18.0) L 09/04/18 11:25 Hct 23.8 % (42.0-54.0) L 09/04/18 11:25 MCV 85.6 fL (80.0-100.0) 09/04/18 04:40 MCH 30.5 pg (27.0-34.0) 09/04/18 04:40 MCHC 35.6 g/dL (33.0-35.0) H 09/04/18 04:40 RDW 13.1 % (11.6-16.5) 09/04/18 04:40 Plt Count 208 X10^3/uL (150.0-450.0) 09/04/18 04:40 Plt Count Comment Adequate (ADEQUATE) 08/30/18 04:48 MPV 8.2 fL (7.4-11.0) 09/04/18 04:40 Neut % (Auto) 55.9 % (42.0-75.0) 09/04/18 04:40 Lymph % (Auto) 27.7 % (21.0-51.0) 09/04/18 04:40 [place] % (Auto) 12.8 % (0.0-13.0) 09/04/18 04:40 Eos % (Auto) 2.8 % (0.9-2.9) 09/04/18 04:40 Baso % (Auto) 0.8 % (0.2-1.0) 09/04/18 04:40 Neut # (Auto) 2.4 x10^3/uL (2.2-4.8) 09/04/18 04:40 Lymph # (Auto) 1.2 X10^3/uL (1.3-2.9) L 09/04/18 04:40 [place] # (Auto) 0.6 x10^3/uL (0.3-0.8) 09/04/18 04:40 Eos # (Auto) 0.1 x10^3/uL (0.0-0.2) 09/04/18 04:40 Baso # (Auto) 0.0 X10^3/uL (0.0-0.1) 09/04/18 04:40 Absolute Nucleated RBC 0.1 /100WBC 09/04/18 04:40 Total Counted 100 08/30/18 04:48 Neutrophils % (Manual) 37 % (39-76) L 08/30/18 04:48 Lymphocytes % (Manual) 50 % (13-43) H 08/30/18 04:48 Monocytes % (Manual) 8 % (4-9) 08/30/18 04:48 Eosinophils % (Manual) 5 % (0-6) 08/30/18 04:48 Plt Morphology Comment Normal (NORMAL) 08/30/18 04:48 RBC Morphology Normal (NORMAL) 08/30/18 04:48 INR Target Range - 09/04/18 04:40 INR 0.97 (0.8-1.3) 09/04/18 04:40 Sodium 136 mmol/L (136-145) 09/04/18 04:40 Corrected Sodium 140 mmol/L (136-145) 09/04/18 04:40 Potassium 3.6 mmol/L (3.5-5.1) 09/04/18 04:40 Chloride 102 mmol/L (98-107) 09/04/18 04:40 Carbon Dioxide 27.1 mmol/L (21-32) 09/04/18 04:40 BUN 17 mg/dL (7-18) 09/04/18 04:40 Creatinine 1.58 mg/dL (0.70-1.30) H 09/04/18 04:40 Est GFR (MDRD) Af Amer > 60 (>60) 09/04/18 04:40 Est GFR (MDRD) Non-Af 51 (>60) L 09/04/18 04:40 Glucose 255 mg/dL (65-99) H 09/04/18 04:40 POC Glucose (mg/dL) 138 mg/dL (65-99) H 09/04/18 16:21 Calcium 8.1 mg/dL (8.5-10.1) L 09/04/18 04:40 Corrected Calcium 9.5 mg/dL (8.5-10.1) 09/04/18 04:40 Magnesium 1.6 mg/dL (1.7-2.9) L 09/03/18 04:45 Total Bilirubin 1.40 mg/dL (0.2-1.0) H 09/04/18 04:40 AST 14 Units/L (15-37) L 09/04/18 04:40 ALT 13 Units/L (12-78) 09/04/18 04:40 Alkaline Phosphatase 30 Units/L (46-116) L 09/04/18 04:40 Total Protein 5.8 g/dL (6.4-8.2) L 09/04/18 04:40 Albumin 2.2 g/dL (3.4-5.0) L 09/04/18 04:40 Globulin 3.6 g/dL (2.5-4.5) 09/04/18 04:40 Albumin/Globulin Ratio 0.6 Ratio (1.1-2.1) L 09/04/18 04:40 Triglycerides 258 mg/dL (0-150) H 08/30/18 04:45 Cholesterol 221 mg/dL (0-200) H 08/30/18 04:45 LDL Cholesterol, Calc 118 mg/dL (0-100) H 08/30/18 04:45 HDL Cholesterol 51 mg/dL (40-60) 08/30/18 04:45 Cholesterol/HDL Ratio 4.3 (0.0-5.0) 08/30/18 04:45 Vancomycin Trough 16.8 ug/mL (15-20) 09/03/18 20:30 Tissue Pathology To follow 08/31/18 11:00 Blood Type A POSITIVE 09/04/18 09:42 Antibody Screen Negative 09/04/18 09:42 - Plan (1) Unilateral amputation of left foot Status: Acute Qualifiers: Encounter type: initial encounter Qualified Code(s): S98.912A - Complete traumatic amputation of left foot, level unspecified, initial encounter Plan: WOUND CARE, CONTINUE TO MONITOR (2) Osteomyelitis Status: Acute Qualifiers: Osteomyelitis type: unspecified type Osteomyelitis location: foot Laterality: left Qualified Code(s): M86.9 - Osteomyelitis, unspecified Plan: CONTINUE IV ANTIBIOTICS, CONTINUE TO MONITOR (3) Cellulitis of left foot Status: Acute Plan: CONTINUE IV ANTIBIOTICS AND WOUND CARE (4) Diabetes Status: Acute Qualifiers: Diabetes mellitus type: type 2 Diabetes mellitus keno terminal operator insulin use: unspecified skilled nursing insulin use status Diabetes mellitus complication status: with skin complications Diabetes mellitus complication detail: with foot ulcer Qualified Code(s): E11.621 - Type 2 diabetes mellitus with foot ulcer; L97.509 - Non-pressure chronic ulcer of other part of unspecified foot with unspecified severity Plan: LEVEMIR 15UNITS SC BID, HUMULIN R SLIDING SCALE, MONITOR OTBS (5) Hypertension Status: Acute Qualifiers: Hypertension type: essential hypertension Qualified Code(s): I10 - Essential (primary) hypertension Plan: NORVASC 10MG DAILY, VASOTEC 20MG PO BID, CONTINUE TO MONITOR (6) Hypokalemia Status: Acute Plan: REPLACEMENT WITH PROTOCOL, CONTINUE TO MONITOR
[2018-09-04] MEDS: SNACK - Diabetic Appropriate PO SCH (20:54)
[2018-09-04] MEDS: COLACE CAP 100 MG PO SCH (20:55)
--- NOTE | 2018-09-04 21:17 | PCM.PROG ---
Progress Note - Progress Note for Day of Date of Exam: 09/03/18 - Subjective Subjective: IS STATUS POST DAY TWO AMPUTATION OF THE LEFT FOOT DUE TO SEVERE OSTEOMYELITIS WITH CHRONIC NON HEALING FOOT ULCER. AMPUTATION WAS ABOVE THE ANKLE. TODAY, HE IS ALERT AND ORIENTED, LYING IN BED ON MORNING ROUNDS. THERE IS A DRESSING NOTED TO LEFT LOWER EXTREMITY. DRESSING IS DRY AND INTACT AT THIS TIME. WOUND WAS NOT CLOSED DURING SURGERY. PLANS TO TAKE HIM BACK TO THE OR FOR A BELOW THE KNEE AMPUTATION ON WEDNESDAY. HIS VITALS TODAY ARE 98.7-86-20-98%-145/79. LABS WERE OBTAINED THIS MORNING. ABNORMAL LAB VALUES INCLUDE THE FOLLOWIN.30, HGB 10.0, HCT 28.0, POTASSIUM 3.3, CREATININE 1.41, GLUCOSE 180, CALCIUM 8.0, TOTAL BILI 2.00, ALK PHOS 26, TOTAL PROTEIN 5.7, ALBUMIN 2.2. WOUND CULTURE IS PENDING. HE IS CURRENTLY RECEIVING VANCOMYCIN 1GM IV Q12H. IS MONITORING WOUND AND WOUND CARE. TODAY, WE WE WILL CONTINUE WITH CURRENT PLAN OF CARE. WE WILL CONTINUE TO MONITOR PATIENT AND FOLLOW UP WITH AM LABS. - Past Medical Family Social History Past Med/Fam/Surg Hx: No changes since H&P Allergies: Allergies No Known Drug Allergies Allergy (Verified 06/07/18 19:58) - Review of Systems ROS: No change since H&P - Vital Signs and I&O's Vital Signs: Temperature 98.9 F Pulse Rate [Bilateral Radial] 85 Pulse Rate 80 Respiratory Rate 20 Blood Pressure [Right Arm] 136/85 Blood Pressure [Left Arm] 162/90 Blood Pressure 166/97 O2 Sat by Pulse Oximetry 98 Intake and Output: Intake & Output 09/02/18 09/03/18 09/04/18 09/05/18 11:59 11:59 11:59 11:59 Intake Total 3380 / 3380 1930 / 1930 960 / 960 930 / 930 Output Total 1725 / 1725 2000 / 2000 300 / 300 400 / 400 Balance 1655 / 1655 -70 / -70 660 / 660 530 / 530 - Physical Exam Oriented: Normal Eyes: Normal Ear: Normal Nose: Normal Throat: Normal Respiratory: Normal Cardiovascular: Normal. negative: S3, S4, Murmur : Normal Auscultation: Bowel Sounds: Normal Palpation: Normal Tenderness: Normal Skin: Wound, Other (incision is clean , no drainage ) Musculoskeletal: Left, Foot (as above , clean incision , no necrosis or cellulitis), Swelling, Tender Psychiatric: Normal Mood Description: Calm Affect: Normal Speech Pattern: Clear, Appropriate - Laboratory and Diagnostics Result Diagrams: 09/04/18 11:25 09/04/18 04:40 Labs: 08/31/18 11:00 Surgery Gram Stain - Final 08/31/18 11:00 Surgery Wound Culture - Preliminary Laboratory WBC 4.3 X10^3/uL (3.6-10.0) 09/04/18 04:40 RBC 3.08 X10^6/uL (4.7-6.0) L 09/04/18 04:40 Hgb 8.6 g/dL (13.5-18.0) L 09/04/18 11:25 Hct 23.8 % (42.0-54.0) L 09/04/18 11:25 MCV 85.6 fL (80.0-100.0) 09/04/18 04:40 MCH 30.5 pg (27.0-34.0) 09/04/18 04:40 MCHC 35.6 g/dL (33.0-35.0) H 09/04/18 04:40 RDW 13.1 % (11.6-16.5) 09/04/18 04:40 Plt Count 208 X10^3/uL (150.0-450.0) 09/04/18 04:40 Plt Count Comment Adequate (ADEQUATE) 08/30/18 04:48 MPV 8.2 fL (7.4-11.0) 09/04/18 04:40 Neut % (Auto) 55.9 % (42.0-75.0) 09/04/18 04:40 Lymph % (Auto) 27.7 % (21.0-51.0) 09/04/18 04:40 Rush % (Auto) 12.8 % (0.0-13.0) 09/04/18 04:40 Eos % (Auto) 2.8 % (0.9-2.9) 09/04/18 04:40 Baso % (Auto) 0.8 % (0.2-1.0) 09/04/18 04:40 Neut # (Auto) 2.4 x10^3/uL (2.2-4.8) 09/04/18 04:40 Lymph # (Auto) 1.2 X10^3/uL (1.3-2.9) L 09/04/18 04:40 Rush # (Auto) 0.6 x10^3/uL (0.3-0.8) 09/04/18 04:40 Eos # (Auto) 0.1 x10^3/uL (0.0-0.2) 09/04/18 04:40 Baso # (Auto) 0.0 X10^3/uL (0.0-0.1) 09/04/18 04:40 Absolute Nucleated RBC 0.1 /100WBC 09/04/18 04:40 Total Counted 100 08/30/18 04:48 Neutrophils % (Manual) 37 % (39-76) L 08/30/18 04:48 Lymphocytes % (Manual) 50 % (13-43) H 08/30/18 04:48 Monocytes % (Manual) 8 % (4-9) 08/30/18 04:48 Eosinophils % (Manual) 5 % (0-6) 08/30/18 04:48 Plt Morphology Comment Normal (NORMAL) 08/30/18 04:48 RBC Morphology Normal (NORMAL) 08/30/18 04:48 INR Target Range - 09/04/18 04:40 INR 0.97 (0.8-1.3) 09/04/18 04:40 Sodium 136 mmol/L (136-145) 09/04/18 04:40 Corrected Sodium 140 mmol/L (136-145) 09/04/18 04:40 Potassium 3.6 mmol/L (3.5-5.1) 09/04/18 04:40 Chloride 102 mmol/L (98-107) 09/04/18 04:40 Carbon Dioxide 27.1 mmol/L (21-32) 09/04/18 04:40 BUN 17 mg/dL (7-18) 09/04/18 04:40 Creatinine 1.58 mg/dL (0.70-1.30) H 09/04/18 04:40 Est GFR (MDRD) Af Amer > 60 (>60) 09/04/18 04:40 Est GFR (MDRD) Non-Af 51 (>60) L 09/04/18 04:40 Glucose 255 mg/dL (65-99) H 09/04/18 04:40 POC Glucose (mg/dL) 158 mg/dL (65-99) H 09/04/18 20:23 Calcium 8.1 mg/dL (8.5-10.1) L 09/04/18 04:40 Corrected Calcium 9.5 mg/dL (8.5-10.1) 09/04/18 04:40 Magnesium 1.6 mg/dL (1.7-2.9) L 09/03/18 04:45 Total Bilirubin 1.40 mg/dL (0.2-1.0) H 09/04/18 04:40 AST 14 Units/L (15-37) L 09/04/18 04:40 ALT 13 Units/L (12-78) 09/04/18 04:40 Alkaline Phosphatase 30 Units/L (46-116) L 09/04/18 04:40 Total Protein 5.8 g/dL (6.4-8.2) L 09/04/18 04:40 Albumin 2.2 g/dL (3.4-5.0) L 09/04/18 04:40 Globulin 3.6 g/dL (2.5-4.5) 09/04/18 04:40 Albumin/Globulin Ratio 0.6 Ratio (1.1-2.1) L 09/04/18 04:40 Triglycerides 258 mg/dL (0-150) H 08/30/18 04:45 Cholesterol 221 mg/dL (0-200) H 08/30/18 04:45 LDL Cholesterol, Calc 118 mg/dL (0-100) H 08/30/18 04:45 HDL Cholesterol 51 mg/dL (40-60) 08/30/18 04:45 Cholesterol/HDL Ratio 4.3 (0.0-5.0) 08/30/18 04:45 Vancomycin Trough 16.8 ug/mL (15-20) 09/03/18 20:30 Tissue Pathology To follow 08/31/18 11:00 Blood Type A POSITIVE 09/04/18 09:42 Antibody Screen Negative 09/04/18 09:42 - Plan (1) Unilateral amputation of left foot Status: Acute Qualifiers: Encounter type: initial encounter Qualified Code(s): S98.912A - Complete traumatic amputation of left foot, level unspecified, initial encounter Plan: WOUND CARE, CONTINUE TO MONITOR (2) Osteomyelitis Status: Acute Qualifiers: Osteomyelitis type: unspecified type Osteomyelitis location: foot Laterality: left Qualified Code(s): M86.9 - Osteomyelitis, unspecified Plan: CONTINUE IV ANTIBIOTICS, CONTINUE TO MONITOR (3) Cellulitis of left foot Status: Acute Plan: CONTINUE IV ANTIBIOTICS AND WOUND CARE (4) Diabetes Status: Acute Qualifiers: Diabetes mellitus type: type 2 Diabetes mellitus group home insulin use: unspecified group home insulin use status Diabetes mellitus complication status: with skin complications Diabetes mellitus complication detail: with foot ulcer Qualified Code(s): E11.621 - Type 2 diabetes mellitus with foot ulcer; L97.509 - Non-pressure chronic ulcer of other part of unspecified foot with unspecified severity Plan: LEVEMIR 15UNITS SC BID, HUMULIN R SLIDING SCALE, MONITOR OTBS (5) Hypertension Status: Acute Qualifiers: Hypertension type: essential hypertension Qualified Code(s): I10 - Essential (primary) hypertension Plan: NORVASC 10MG DAILY, VASOTEC 20MG PO BID, CONTINUE TO MONITOR (6) Hypokalemia Status: Acute Plan: REPLACEMENT WITH PROTOCOL, CONTINUE TO MONITOR
[2018-09-05] MEDS: NS 1000 ML 1,000 ML IV PRN (02:09)
[2018-09-05] MEDS: DILAUDID INJ IVP PRN ×7 (02:35→22:03)
[2018-09-05 05:18] LABS: BASOPHILS % (AUTO) 0.8 % (0.2-1.0); EOSINOPHILS # (AUTO) 0.1 x10^3/uL (0.0-0.2); EOSINOPHILS % (AUTO) 2.7 % (0.9-2.9); HEMATOCRIT 24.1 % (42.0-54.0); HEMOGLOBIN 8.6 g/dL (13.5-18.0); LYMPHOCYTES # (AUTO) 1.3 X10^3/uL (1.3-2.9); LYMPHOCYTES % (AUTO) 28.6 % (21.0-51.0); MEAN CORPUSCULAR HEMOGLOBIN 30.4 pg (27.0-34.0); MEAN CORPUSCULAR HGB CONC 35.6 g/dL (33.0-35.0); MEAN CORPUSCULAR VOLUME 85.5 fL (80.0-100.0); MEAN PLATELET VOLUME 8.3 fL (7.4-11.0); MONOCYTES # (AUTO) 0.6 x10^3/uL (0.3-0.8); MONOCYTES % (AUTO) 12.8 % (0.0-13.0); NEUTROPHILS # (AUTO) 2.5 x10^3/uL (2.2-4.8); NEUTROPHILS % (AUTO) 55.1 % (42.0-75.0); PLATELET COUNT 211 X10^3/uL (150.0-450.0); RED BLOOD COUNT 2.82 X10^6/uL (4.7-6.0); RED CELL DISTRIBUTION WIDTH 12.8 % (11.6-16.5); WHITE BLOOD COUNT 4.6 X10^3/uL (3.6-10.0)
[2018-09-05 05:30] LABS: ALANINE AMINOTRANSFERASE 15 Units/L (12-78); ALBUMIN 2.3 g/dL (3.4-5.0); ALKALINE PHOSPHATASE 30 Units/L (46-116); ASPARTATE AMINO TRANSFERASE 16 Units/L (15-37); BLOOD UREA NITROGEN 19 mg/dL (7-18); CALCIUM 8.2 mg/dL (8.5-10.1); CARBON DIOXIDE 23.7 mmol/L (21-32); CHLORIDE 102 mmol/L (98-107); COR CA(FOR HYPOALB) 9.6 mg/dL (8.5-10.1); COR NA(FOR HYPERGLY) 139 mmol/L (136-145); CREATININE 1.58 mg/dL (0.70-1.30); SODIUM 137 mmol/L (136-145); TOTAL PROTEIN 5.9 g/dL (6.4-8.2); eGFR NON BLACK RACES 51 (>60)
[2018-09-05] MEDS: ZOFRAN INJ 4 MG VIAL IVP PRN (06:36)
[2018-09-05] MEDS: ALBUMIN HUMAN 25%- 100 ML 100 ML IV SCH ×3 (08:05→09:23)
[2018-09-05] MEDS: LEVEMIR SC SCH ×2 (08:10→20:36)
[2018-09-05] MEDS: LOVENOX INJ 40 MG SYR SC SCH (08:10)
[2018-09-05] MEDS: VASOTEC TAB 20 MG PO SCH ×2 (08:10→20:34)
[2018-09-05] MEDS: NORVASC TAB 5 MG PO SCH (08:11)
[2018-09-05] MEDS: MIRALAX POWDER (1 DOSE 17 G) PO SCH (08:11)
[2018-09-05 09:42] LABS: CREATININE 1.59 mg/dL (0.70-1.30)
[2018-09-05 09:53] LABS: VANCOMYCIN,TROUGH 20.9 ug/mL (15-20)
[2018-09-05] MEDS ORDERED: LR 1000 ML IV 1,000 ML IV ONE (10:41)
[2018-09-05] MEDS ORDERED: FENTANYL INJ 100 mcg ONE (11:10)
[2018-09-05] MEDS ORDERED: DILAUDID INJ IVP PRN (13:56)
[2018-09-05] MEDS ORDERED: BENADRYL INJ 50 MG VIAL IVP PRN (13:56)
[2018-09-05] MEDS ORDERED: ZOFRAN INJ 4 MG VIAL IVP PRN (13:56)
[2018-09-05] MEDS ORDERED: PHENERGAN INJ 25 MG IVP PRN (13:56)
[2018-09-05] MEDS ORDERED: REGLAN INJ 10 MG VIAL IVP PRN (13:56)
[2018-09-05] MEDS ORDERED: NEOSPORIN OINT ONE (14:03)
[2018-09-05] MEDS ORDERED: DILAUDID INJ ONE ×3 (14:19→16:46)
[2018-09-05] MEDS: VANCOMYCIN HCL 1 GM VIAL 1 G in D5W 250 ML IV 250 ML IV SCH (15:45)
[2018-09-05] MEDS: PHENERGAN INJ 25 MG IV PRN (16:30)
--- NOTE | 2018-09-05 17:18 | OR.GENERIC ---
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 to keep the leg elevated , IV ATB and diabetic control ..
[2018-09-05] MEDS: HumuLIN R SUBCUT PRN ×2 (17:46→20:36)
[2018-09-05] MEDS: BENADRYL INJ 50 MG VIAL IVP PRN (17:59)
[2018-09-05] MEDS: NORCO 5/325 MG TAB PO PRN (17:59)
[2018-09-05] MEDS: COLACE CAP 100 MG PO SCH (20:34)
[2018-09-05] MEDS: SNACK - Diabetic Appropriate PO SCH (20:35)
--- NOTE | 2018-09-05 21:54 | PCM.PROG ---
Progress Note - Progress Note for Day of Date of Exam: 09/04/18 - Subjective Subjective: IS STATUS POST DAY THREE AMPUTATION OF THE LEFT FOOT DUE TO SEVERE OSTEOMYELITIS WITH CHRONIC NON HEALING FOOT ULCER. AMPUTATION WAS ABOVE THE ANKLE. TODAY, HE IS ALERT AND ORIENTED, LYING IN BED ON MORNING ROUNDS. HE REPORTS NOT HAVING A BOWEL MOVEMENT IN SEVERAL DAYS. THERE IS A DRESSING NOTED TO LEFT LOWER EXTREMITY. DRESSING IS DRY AND INTACT AT THIS TIME. WOUND WAS NOT CLOSED DURING SURGERY. PLANS TO TAKE HIM BACK TO THE OR FOR A BELOW THE KNEE AMPUTATION ON WEDNESDAY. HIS VITALS TODAY ARE 98.4-86-20-96%-151/93. LABS WERE OBTAINED THIS MORNING. ABNORMAL LAB VALUES INCLUDE THE FOLLOWING: RBC 3.08, HGB 9.4M HCT 26.4, CREATININE 1.58, GLUCOSE 255, CALCIUM 8.1, TOTAL BILI 1.40, AST 14, ALK PHOS 30, TOTAL PROTEIN 5.8, ALBUMIN 2.2. WOUND CULTURE IS PENDING. HE IS CURRENTLY RECEIVING VANCOMYCIN 1GM IV Q12H. IS MONITORING WOUND AND WOUND CARE. TODAY, WE WE WILL CONTINUE WITH CURRENT PLAN OF CARE AND START COLACE AND MIRALAX DAILY. OTHERWISE, WE WILL CONTINUE TO MONITOR PATIENT AND FOLLOW UP WITH AM LABS. - Past Medical Family Social History Past Med/Fam/Surg Hx: No changes since H&P Allergies: Allergies No Known Drug Allergies Allergy (Verified 06/07/18 19:58) - Review of Systems ROS: No change since H&P - Vital Signs and I&O's Vital Signs: Temperature 98.0 F Pulse Rate [Bilateral Radial] 95 Pulse Rate 93 Respiratory Rate 20 Blood Pressure [Right Arm] 152/83 Blood Pressure [Left Arm] 162/90 Blood Pressure 138/81 O2 Sat by Pulse Oximetry 100 Intake and Output: Intake & Output 09/03/18 09/04/18 09/05/18 09/06/18 11:59 11:59 11:59 11:59 Intake Total 1930 / 1930 960 / 960 1910 / 1910 1900 / 190 Output Total 1999 / 1999 300 / 300 400 / 400 1225 / 1225 Balance -70 / -70 660 / 660 1510 / 1510 675 / 675 - Physical Exam Oriented: Normal Eyes: Normal Ear: Normal Nose: Normal Throat: Normal Respiratory: Normal Cardiovascular: Normal. negative: S3, S4, Murmur : Normal Auscultation: Bowel Sounds: Normal Tenderness: Normal Skin: Wound, Other (incision is clean , no drainage ) Musculoskeletal: Left, Foot (as above , clean incision , no necrosis or cellulitis), Swelling, Tender Psychiatric: Normal Mood Description: Calm Affect: Normal Speech Pattern: Clear, Appropriate - Laboratory and Diagnostics Result Diagrams: 09/05/18 04:50 09/05/18 08:52 Labs: 08/31/18 11:00 Surgery Gram Stain - Final 08/31/18 11:00 Surgery Wound Culture - Final Laboratory WBC 4.6 X10^3/uL (3.6-10.0) 09/05/18 04:50 RBC 2.82 X10^6/uL (4.7-6.0) L 09/05/18 04:50 Hgb 8.6 g/dL (13.5-18.0) L 09/05/18 04:50 Hct 24.1 % (42.0-54.0) L 09/05/18 04:50 MCV 85.5 fL (80.0-100.0) 09/05/18 04:50 MCH 30.4 pg (27.0-34.0) 09/05/18 04:50 MCHC 35.6 g/dL (33.0-35.0) H 09/05/18 04:50 RDW 12.8 % (11.6-16.5) 09/05/18 04:50 Plt Count 211 X10^3/uL (150.0-450.0) 09/05/18 04:50 Plt Count Comment Adequate (ADEQUATE) 08/30/18 04:48 MPV 8.3 fL (7.4-11.0) 09/05/18 04:50 Neut % (Auto) 55.1 % (42.0-75.0) 09/05/18 04:50 Lymph % (Auto) 28.6 % (21.0-51.0) 09/05/18 04:50 Gates % (Auto) 12.8 % (0.0-13.0) 09/05/18 04:50 Eos % (Auto) 2.7 % (0.9-2.9) 09/05/18 04:50 Baso % (Auto) 0.8 % (0.2-1.0) 09/05/18 04:50 Neut # (Auto) 2.5 x10^3/uL (2.2-4.8) 09/05/18 04:50 Lymph # (Auto) 1.3 X10^3/uL (1.3-2.9) 09/05/18 04:50 Gates # (Auto) 0.6 x10^3/uL (0.3-0.8) 09/05/18 04:50 Eos # (Auto) 0.1 x10^3/uL (0.0-0.2) 09/05/18 04:50 Baso # (Auto) 0.0 X10^3/uL (0.0-0.1) 09/05/18 04:50 Absolute Nucleated RBC 0.2 /100WBC 09/05/18 04:50 Total Counted 100 08/30/18 04:48 Neutrophils % (Manual) 37 % (39-76) L 08/30/18 04:48 Lymphocytes % (Manual) 50 % (13-43) H 08/30/18 04:48 Monocytes % (Manual) 8 % (4-9) 08/30/18 04:48 Eosinophils % (Manual) 5 % (0-6) 08/30/18 04:48 Plt Morphology Comment Normal (NORMAL) 08/30/18 04:48 RBC Morphology Normal (NORMAL) 08/30/18 04:48 INR Target Range - 09/04/18 04:40 INR 0.97 (0.8-1.3) 09/04/18 04:40 Sodium 137 mmol/L (136-145) 09/05/18 04:50 Corrected Sodium 139 mmol/L (136-145) 09/05/18 04:50 Potassium 3.5 mmol/L (3.5-5.1) 09/05/18 04:50 Chloride 102 mmol/L (98-107) 09/05/18 04:50 Carbon Dioxide 23.7 mmol/L (21-32) 09/05/18 04:50 BUN 19 mg/dL (7-18) H 09/05/18 04:50 Creatinine 1.59 mg/dL (0.70-1.30) H 09/05/18 08:52 Est GFR (MDRD) Af Amer > 60 (>60) 09/05/18 04:50 Est GFR (MDRD) Non-Af 51 (>60) L 09/05/18 04:50 Glucose 174 mg/dL (65-99) H 09/05/18 04:50 POC Glucose (mg/dL) 307 mg/dL (65-99) H 09/05/18 19:52 Calcium 8.2 mg/dL (8.5-10.1) L 09/05/18 04:50 Corrected Calcium 9.6 mg/dL (8.5-10.1) 09/05/18 04:50 Magnesium 1.6 mg/dL (1.7-2.9) L 09/03/18 04:45 Total Bilirubin 1.10 mg/dL (0.2-1.0) H 09/05/18 04:50 AST 16 Units/L (15-37) 09/05/18 04:50 ALT 15 Units/L (12-78) 09/05/18 04:50 Alkaline Phosphatase 30 Units/L (46-116) L 09/05/18 04:50 Total Protein 5.9 g/dL (6.4-8.2) L 09/05/18 04:50 Albumin 2.3 g/dL (3.4-5.0) L 09/05/18 04:50 Globulin 3.6 g/dL (2.5-4.5) 09/05/18 04:50 Albumin/Globulin Ratio 0.6 Ratio (1.1-2.1) L 09/05/18 04:50 Triglycerides 258 mg/dL (0-150) H 08/30/18 04:45 Cholesterol 221 mg/dL (0-200) H 08/30/18 04:45 LDL Cholesterol, Calc 118 mg/dL (0-100) H 08/30/18 04:45 HDL Cholesterol 51 mg/dL (40-60) 08/30/18 04:45 Cholesterol/HDL Ratio 4.3 (0.0-5.0) 08/30/18 04:45 Vancomycin Trough 20.9 ug/mL (15-20) H* 09/05/18 08:52 Tissue Pathology To follow 09/05/18 14:19 Blood Type A POSITIVE 10/21/18 09:42 Antibody Screen Negative 09/04/18 09:42 - Plan (1) Unilateral amputation of left foot Status: Acute Qualifiers: Encounter type: initial encounter Qualified Code(s): S98.912A - Complete traumatic amputation of left foot, level unspecified, initial encounter Plan: WOUND CARE, CONTINUE TO MONITOR (2) Osteomyelitis Status: Acute Qualifiers: Osteomyelitis type: unspecified type Osteomyelitis location: foot Lat erality: left Qualified Code(s): M86.9 - Osteomyelitis, unspecified Plan: CONTINUE IV ANTIBIOTICS, CONTINUE TO MONITOR (3) Cellulitis of left foot Status: Acute Plan: CONTINUE IV ANTIBIOTICS AND WOUND CARE (4) Diabetes Status: Acute Qualifiers: Diabetes mellitus type: type 2 Diabetes mellitus watermelon inspector insulin use: unspecified watermelon inspector insulin use status Diabetes mellitus complication status: with skin complications Diabetes mellitus complication detail: with foot ulcer Qualified Code(s): E11.621 - Type 2 diabetes mellitus with foot ulcer; L97.509 - Non-pressure chronic ulcer of other part of unspecified foot with unspecified severity Plan: LEVEMIR 15UNITS SC BID, HUMULIN R SLIDING SCALE, MONITOR OTBS (5) Hypertension Status: Acute Qualifiers: Hypertension type: essential hypertension Qualified Code(s): I10 - Essential (primary) hypertension Plan: NORVASC 10MG DAILY, VASOTEC 20MG PO BID, CONTINUE TO MONITOR (6) Hypokalemia Status: Acute Plan: REPLACEMENT WITH PROTOCOL, CONTINUE TO MONITOR
[2018-09-06] MEDS: DILAUDID INJ IVP PRN ×4 (00:19→09:21)
[2018-09-06 01:11] LABS: HEMATOCRIT 19.3 % (42.0-54.0)
[2018-09-06] MEDS: NORCO 5/325 MG TAB PO PRN (04:55)
[2018-09-06] MEDS: BENADRYL INJ 50 MG VIAL IVP PRN (04:56)
[2018-09-06] MEDS: HumuLIN R SUBCUT PRN ×3 (06:13→21:10)
[2018-09-06 06:30] LABS: BASOPHILS % (AUTO) 0.7 % (0.2-1.0); EOSINOPHILS # (AUTO) 0.1 x10^3/uL (0.0-0.2); EOSINOPHILS % (AUTO) 1.1 % (0.9-2.9); HEMOGLOBIN 7.1 g/dL (13.5-18.0); LYMPHOCYTES # (AUTO) 1.4 X10^3/uL (1.3-2.9); LYMPHOCYTES % (AUTO) 22.4 % (21.0-51.0); MEAN CORPUSCULAR HEMOGLOBIN 31.3 pg (27.0-34.0); MEAN CORPUSCULAR HGB CONC 36.3 g/dL (33.0-35.0); MEAN CORPUSCULAR VOLUME 86.1 fL (80.0-100.0); MEAN PLATELET VOLUME 8.7 fL (7.4-11.0); MONOCYTES # (AUTO) 0.6 x10^3/uL (0.3-0.8); MONOCYTES % (AUTO) 10.4 % (0.0-13.0); NEUTROPHILS % (AUTO) 65.4 % (42.0-75.0); PLATELET COUNT 212 X10^3/uL (150.0-450.0); RED BLOOD COUNT 2.28 X10^6/uL (4.7-6.0); RED CELL DISTRIBUTION WIDTH 12.7 % (11.6-16.5); WHITE BLOOD COUNT 6.2 X10^3/uL (3.6-10.0)
[2018-09-06 06:36] LABS: ALBUMIN 2.3 g/dL (3.4-5.0); CALCIUM 7.8 mg/dL (8.5-10.1); CARBON DIOXIDE 24.7 mmol/L (21-32); COR CA(FOR HYPOALB) 9.2 mg/dL (8.5-10.1); CREATININE 2.16 mg/dL (0.70-1.30); TOTAL PROTEIN 5.6 g/dL (6.4-8.2)
[2018-09-06 06:41] LABS: HEMATOCRIT 19.7 % (42.0-54.0)
[2018-09-06 07:04] LABS: PLATELET MORPHOLOGY COMMENT NORMAL (NORMAL)
[2018-09-06] MEDS: LOVENOX INJ 40 MG SYR SC SCH (09:17)
[2018-09-06] MEDS: ALBUMIN HUMAN 25%- 100 ML 100 ML IV SCH (09:18)
[2018-09-06] MEDS: MIRALAX POWDER (1 DOSE 17 G) PO SCH (09:18)
[2018-09-06] MEDS: VANCOMYCIN HCL 1 GM VIAL 1 G in D5W 250 ML IV 250 ML IV SCH (09:19)
[2018-09-06] MEDS: VASOTEC TAB 20 MG PO SCH ×2 (09:19→21:08)
[2018-09-06] MEDS: NORVASC TAB 5 MG PO SCH (09:19)
[2018-09-06] MEDS: LEVEMIR SC SCH ×2 (09:20→21:09)
[2018-09-06] MEDS: PERCOCET TAB 5/325 MG PO PRN ×3 (09:52→18:30)
[2018-09-06] MEDS ORDERED: TYLENOL 325 MG TAB PO PRN (10:23)
[2018-09-06] MEDS ORDERED: NS 500 ML IV 500 ML IV ONE (10:23)
[2018-09-06 12:46] LABS: HEMATOCRIT 19.7 % (42.0-54.0)
[2018-09-06] MEDS: ZOFRAN INJ 4 MG VIAL IVP PRN (20:06)
[2018-09-06] MEDS: COLACE CAP 100 MG PO SCH (21:08)
[2018-09-06] MEDS ORDERED: NS 250 ML IV 250 ML IV ONE (21:08)
[2018-09-06] MEDS: SNACK - Diabetic Appropriate PO SCH (21:11)
[2018-09-07] MEDS: PHENERGAN INJ 25 MG IV PRN (02:04)
[2018-09-07] MEDS: VANCOMYCIN HCL 1 GM VIAL 1 G in D5W 250 ML IV 250 ML IV SCH ×2 (02:09→21:45)
[2018-09-07] MEDS: ZOFRAN INJ 4 MG VIAL IVP PRN (04:00)
[2018-09-07 05:17] LABS: BASOPHILS # (AUTO) 0.1 X10^3/uL (0.0-0.1); BASOPHILS % (AUTO) 0.6 % (0.2-1.0); EOSINOPHILS % (AUTO) 0.2 % (0.9-2.9); HEMATOCRIT 23.6 % (42.0-54.0); HEMOGLOBIN 8.5 g/dL (13.5-18.0); LYMPHOCYTES % (AUTO) 11.2 % (21.0-51.0); MEAN CORPUSCULAR HEMOGLOBIN 30.9 pg (27.0-34.0); MEAN PLATELET VOLUME 8.1 fL (7.4-11.0); MONOCYTES # (AUTO) 0.8 x10^3/uL (0.3-0.8); MONOCYTES % (AUTO) 9.2 % (0.0-13.0); NEUTROPHILS % (AUTO) 78.8 % (42.0-75.0); PLATELET COUNT 204 X10^3/uL (150.0-450.0); RED BLOOD COUNT 2.75 X10^6/uL (4.7-6.0); RED CELL DISTRIBUTION WIDTH 12.7 % (11.6-16.5); WHITE BLOOD COUNT 8.9 X10^3/uL (3.6-10.0)
[2018-09-07 05:35] LABS: ALBUMIN 2.3 g/dL (3.4-5.0); CARBON DIOXIDE 25.3 mmol/L (21-32); COR CA(FOR HYPOALB) 9.4 mg/dL (8.5-10.1); CREATININE 1.98 mg/dL (0.70-1.30); TOTAL PROTEIN 5.8 g/dL (6.4-8.2)
[2018-09-07] MEDS: HumuLIN R SUBCUT PRN ×3 (05:47→22:53)
[2018-09-07] MEDS ORDERED: COMPAZINE PO ONE (09:43)
[2018-09-07] MEDS ORDERED: COMPAZINE PO PRN (10:10)
[2018-09-07] MEDS: MIRALAX POWDER (1 DOSE 17 G) PO SCH (10:17)
[2018-09-07] MEDS: VASOTEC TAB 20 MG PO SCH ×2 (10:18→20:04)
[2018-09-07] MEDS: NORVASC TAB 5 MG PO SCH (10:18)
[2018-09-07] MEDS: ALBUMIN HUMAN 25%- 100 ML 100 ML IV SCH (10:18)
[2018-09-07] MEDS: LOVENOX INJ 40 MG SYR SC SCH (10:19)
[2018-09-07] MEDS: LEVEMIR SC SCH ×2 (10:20→21:11)
[2018-09-07] MEDS: DILAUDID INJ IVP PRN ×3 (10:50→21:49)
--- NOTE | 2018-09-07 10:59 | PCM.PROG ---
Progress Note - Progress Note for Day of Date of Exam: 09/05/18 - Subjective Subjective: IS STATUS POST DAY FOUR AMPUTATION OF THE LEFT FOOT DUE TO SEVERE OSTEOMYELITIS WITH CHRONIC NON HEALING FOOT ULCER. AMPUTATION WAS ABOVE THE ANKLE. TODAY, HE IS ALERT AND ORIENTED, LYING IN BED ON MORNING ROUNDS.THERE IS A DRESSING NOTED TO LEFT LOWER EXTREMITY. DRESSING IS DRY AND INTACT AT THIS TIME. WOUND WAS NOT CLOSED DURING SURGERY. PLANS TO TAKE HIM BACK TO THE OR TODAY FOR A BELOW THE KNEE AMPUTATION. HIS VITALS TODAY ARE 98.2-92-20-100%-150/82. LABS WERE OBTAINED THIS MORNING. ABNORMAL LAB VALUES INCLUDE THE FOLLOWING: RBC 2.82, HGB 8.6, HCT 24.1, BUN 19, CREATININE 1.58, GLUCOSE 174, CALCIUM 8.2, TOTAL BILI 1.10, ALK PHOS 30, TOTAL PROTEIN 5.9, ALBUM IN 2.3. WOUND CULTURE REPORTS NO GROWTH. HE IS CURRENTLY RECEIVING VANCOMYCIN 1GM IV Q12H. TODAY, WE WILL CONTINUE WITH CURRENT PLAN OF CARE AND MONITOR BLOOD GLUCOSE AND BLOOD PRESSURE. OTHERWISE, WE WILL CONTINUE TO MONITOR PATIENT AND FOLLOW UP WITH AM LABS. - Past Medical Family Social History Past Med/Fam/Surg Hx: No changes since H&P Allergies: Allergies No Known Drug Allergies Allergy (Verified 06/07/18 19:58) - Review of Systems ROS: No change since H&P - Vital Signs and I&O's Vital Signs: Temperature 99.9 F Pulse Rate [Bilateral Radial] 100 Pulse Rate 93 Respiratory Rate 18 Blood Pressure [Right Arm] 168/84 Blood Pressure [Left Arm] 162/90 Blood Pressure 138/81 O2 Sat by Pulse Oximetry 95 Intake and Output: Intake & Output 09/04/18 09/05/18 09/06/18 09/07/18 11:59 11:59 11:59 11:59 Intake Total 960 / 960 1910 / 1910 3800 / 3800 3000 / 3000 Output Total 300 / 300 400 / 400 2125 / 2125 1600 / 1600 Balance 660 / 660 1510 / 1510 1675 / 1675 1400 / 1400 - Physical Exam Oriented: Normal Eyes: Normal Ear: Normal Nose: Normal Throat: Normal Respiratory: Normal Cardiovascular: Normal. negative: S3, S4, Murmur : Normal Auscultation: Bowel Sounds: Normal Palpation: Normal Tenderness: Normal Skin: Wound, Other (incision is clean , no drainage ) Musculoskeletal: Left, Foot (as above , clean incision , no necrosis or cellulitis), Swelling, Tender Psychiatric: Normal Mood Description: Calm Affect: Normal Speech Pattern: Clear, Appropriate - Laboratory and Diagnostics Result Diagrams: 09/07/18 05:00 09/07/18 05:00 Labs: 08/31/18 11:00 Surgery Gram Stain - Final 08/31/18 11:00 Surgery Wound Culture - Final Laboratory WBC 8.9 X10^3/uL (3.6-10.0) 09/07/18 05:00 RBC 2.75 X10^6/uL (4.7-6.0) L 09/07/18 05:00 Hgb 8.5 g/dL (13.5-18.0) L 09/07/18 05:00 Hct 23.6 % (42.0-54.0) L 09/07/18 05:00 MCV 86.0 fL (80.0-100.0) 09/07/18 05:00 MCH 30.9 pg (27.0-34.0) 09/07/18 05:00 MCHC 36.0 g/dL (33.0-35.0) H 09/07/18 05:00 RDW 12.7 % (11.6-16.5) 09/07/18 05:00 Plt Count 204 X10^3/uL (150.0-450.0) 09/07/18 05:00 Plt Count Comment Adequate (ADEQUATE) 09/06/18 05:20 MPV 8.1 fL (7.4-11.0) 09/07/18 05:00 Neut % (Auto) 78.8 % (42.0-75.0) H 09/07/18 05:00 Lymph % (Auto) 11.2 % (21.0-51.0) L 09/07/18 05:00 [place]ucks % (Auto) 9.2 % (0.0-13.0) 09/07/18 05:00 Eos % (Auto) 0.2 % (0.9-2.9) L 09/07/18 05:00 Baso % (Auto) 0.6 % (0.2-1.0) 09/07/18 05:00 Neut # (Auto) 7.0 x10^3/uL (2.2-4.8) H 09/07/18 05:00 Lymph # (Auto) 1.0 X10^3/uL (1.3-2.9) L 09/07/18 05:00 [place] # (Auto) 0.8 x10^3/uL (0.3-0.8) 09/07/18 05:00 Eos # (Auto) 0.0 x10^3/uL (0.0-0.2) 09/07/18 05:00 Baso # (Auto) 0.1 X10^3/uL (0.0-0.1) 09/07/18 05:00 Absolute Nucleated RBC 0.0 /100WBC 09/07/18 05:00 Total Counted 100 08/30/18 04:48 Neutrophils % (Manual) 37 % (39-76) L 08/30/18 04:48 Lymphocytes % (Manual) 50 % (13-43) H 08/30/18 04:48 Monocytes % (Manual) 8 % (4-9) 08/30/18 04:48 Eosinophils % (Manual) 5 % (0-6) 08/30/18 04:48 Plt Morphology Comment Normal (NORMAL) 09/06/18 05:20 RBC Morphology Normal (NORMAL) 09/06/18 05:20 INR Target Range - 09/04/18 04:40 INR 0.97 (0.8-1.3) 09/04/18 04:40 Sodium 134 mmol/L (136-145) L 09/07/18 05:00 Corrected Sodium 138 mmol/L (136-145) 09/07/18 05:00 Potassium 3.1 mmol/L (3.5-5.1) L 09/07/18 05:00 Chloride 100 mmol/L (98-107) 09/07/18 05:00 Carbon Dioxide 25.3 mmol/L (21-32) 09/07/18 05:00 BUN 20 mg/dL (7-18) H 09/07/18 05:00 Creatinine 1.98 mg/dL (0.70-1.30) H 09/07/18 05:00 Est GFR (MDRD) Af Amer 47 (>60) L 09/07/18 05:00 Est GFR (MDRD) Non-Af 39 (>60) L 09/07/18 05:00 Glucose 259 mg/dL (65-99) H 09/07/18 05:00 POC Glucose (mg/dL) 248 mg/dL (65-99) H 09/07/18 05:40 Calcium 8.0 mg/dL (8.5-10.1) L 09/07/18 05:00 Corrected Calcium 9.4 mg/dL (8.5-10.1) 09/07/18 05:00 Magnesium 1.6 mg/dL (1.7-2.9) L 09/03/18 04:45 Total Bilirubin 2.00 mg/dL (0.2-1.0) H 09/07/18 05:00 AST 35 Units/L (15-37) 09/07/18 05:00 ALT 22 Units/L (12-78) 09/07/18 05:00 Alkaline Phosphatase 31 Units/L (46-116) L 09/07/18 05:00 Total Protein 5.8 g/dL (6.4-8.2) L 09/07/18 05:00 Albumin 2.3 g/dL (3.4-5.0) L 09/07/18 05:00 Globulin 3.5 g/dL (2.5-4.5) 09/07/18 05:00 Albumin/Globulin Ratio 0.7 Ratio (1.1-2.1) L 09/07/18 05:00 Triglycerides 258 mg/dL (0-150) H 08/30/18 04:45 Cholesterol 221 mg/dL (0-200) H 08/30/18 04:45 LDL Cholesterol, Calc 118 mg/dL (0-100) H 08/30/18 04:45 HDL Cholesterol 51 mg/dL (40-60) 08/30/18 04:45 Cholesterol/HDL Ratio 4.3 (0.0-5.0) 08/30/18 04:45 Vancomycin Trough 20.9 ug/mL (15-20) H* 09/05/18 08:52 Tissue Pathology To follow 09/05/18 14:19 Blood Type A POSITIVE 09/04/18 09:42 Antibody Screen Negative 09/04/18 09:42 Crossmatch See Detail 09/04/18 09:42 - Plan (1) Unilateral amputation of left foot Status: Acute Qualifiers: Encounter type: initial encounter Qualified Code(s): S98.912A - Complete traumatic amputation of left foot, level unspecified, initial encounter Plan: WOUND CARE, CONTINUE TO MONITOR (2) Osteomyelitis Status: Acute Qualifiers: Osteomyelitis type: unspecified type Osteomyelitis location: foot Laterality: left Qualified Code(s): M86.9 - Osteomyelitis, unspecified Plan: CONTINUE IV ANTIBIOTICS, CONTINUE TO MONITOR (3) Cellulitis of left foot Status: Acute Plan: CONTINUE IV ANTIBIOTICS AND WOUND CARE (4) Diabetes Status: Acute Qualifiers: Diabetes mellitus type: type 2 Diabetes mellitus lobsterman insulin use: unspecified lobsterman insulin use status Diabetes mellitus complication status: with skin complications Diabetes mellitus complication detail: with foot ulcer Qualified Code(s): E11.621 - Type 2 diabetes mellitus with foot ulcer; L97.509 - Non-pressure chronic ulcer of other part of unspecified foot with unspecified severity Plan: LEVEMIR 15UNITS SC BID, HUMULIN R SLIDING SCALE, MONITOR OTBS (5) Hypertension Status: Acute Qualifiers: Hypertension type: essential hypertension Qualified Code(s): I10 - Essential (primary) hypertension Plan: NORVASC 10MG DAILY, VASOTEC 20MG PO BID, CONTINUE TO MONITOR (6) Hypokalemia Status: Acute Plan: REPLACEMENT WITH PROTOCOL, CONTINUE TO MONITOR
--- NOTE | 2018-09-07 11:34 | PCM.PROG ---
Progress Note - Progress Note for Day of Date of Exam: 09/06/18 - Subjective Subjective: IS STATUS POST DAY BELOW THE KNEE AMPUTATION. HAD PREVIOUSLY PERFORMED AN ABOVE THE ANKLE AMPUTATION, BUT WENT FURTHER UP YESTERDAY. TODAY, HE IS ALERT AND ORIENTED, LYING IN BED ON MORNING ROUNDS.THERE IS A DRESSING NOTED TO LEFT EXTREMITY. DRESSING IS DRY AND INTACT AT THIS TIME. HIS VITALS TODAY ARE 99.3-104-18-97%-136/79. LABS WERE OBTAINED THIS MORNING. ABNORMAL LAB VALUES INCLUDE THE FOLLOWING: RBC 2.28, HGB 7.1, HCT 19.7, SODIUM 133, BUN 22, CREATININE 2.16, GLUCOSE 226, CALCIUM 7.8, ALK PHOS 28, TOTAL PROTEIN 5.6, ALBUMIN 2.3. WOUND CULTURE REPORTS NO GROWTH. HE IS CURRENTLY RECEIVING VANCOMYCIN 1GM IV Q12H. TODAY, WE WILL CONTINUE WITH CURRENT PLAN OF CARE AND MONITOR BLOOD GLUCOSE AND BLOOD PRESSURE. WE WILL TRANSFUSE TWO UNITS OF PACKED RED BLOOD CELLS. OTHERWISE, WE WILL CONTINUE TO MONITOR PATIENT AND FOLLOW UP WITH AM LABS. - Past Medical Family Social History Past Med/Fam/Surg Hx: No changes since H&P Allergies: Allergies No Known Drug Allergies Allergy (Verified 06/07/18 19:58) - Review of Systems ROS: No change since H&P - Vital Signs and I&O's Vital Signs: Temperature 99.9 F Pulse Rate [Bilateral Radial] 100 Pulse Rate 93 Respiratory Rate 18 Blood Pressure [Right Arm] 168/84 Blood Pressure [Left Arm] 162/90 Blood Pressure 138/81 O2 Sat by Pulse Oximetry 95 Intake and Output: Intake & Output 09/04/18 09/05/18 09/06/18 09/07/18 11:59 11:59 11:59 11:59 Intake Total 960 / 960 1910 / 1910 3800 / 3800 3000 / 3000 Output Total 300 / 300 400 / 400 2125 / 2125 1600 / 1600 Balance 660 / 660 1510 / 1510 1675 / 1675 1400 / 1400 - Physical Exam Oriented: Normal Eyes: Normal Ear: Normal Nose: Normal Throat: Normal Respiratory: Normal Cardiovascular: Normal. negative: S3, S4, Murmur : Normal Auscultation: Bowel Sounds: Normal Tenderness: Normal Skin: Wound, Other (incision is clean , no drainage ) Musculoskeletal: Left, Foot (as above , clean incision , no necrosis or alondra lulitis), Swelling, Tender Psychiatric: Normal Mood Description: Calm Affect: Normal Speech Pattern: Clear, Appropriate - Laboratory and Diagnostics Result Diagrams: 09/07/18 05:00 09/07/18 05:00 Labs: 08/31/18 11:00 Surgery Gram Stain - Final 08/31/18 11:00 Surgery Wound Culture - Final Laboratory WBC 8.9 X10^3/uL (3.6-10.0) 09/07/18 05:00 RBC 2.75 X10^6/uL (4.7-6.0) L 09/07/18 05:00 Hgb 8.5 g/dL (13.5-18.0) L 09/07/18 05:00 Hct 23.6 % (42.0-54.0) L 09/07/18 05:00 MCV 86.0 fL (80.0-100.0) 09/07/18 05:00 MCH 30.9 pg (27.0-34.0) 09/07/18 05:00 MCHC 36.0 g/dL (33.0-35.0) H 09/07/18 05:00 RDW 12.7 % (11.6-16.5) 09/07/18 05:00 Plt Count 204 X10^3/uL (150.0-450.0) 09/07/18 05:00 Plt Count Comment Adequate (ADEQUATE) 09/06/18 05:20 MPV 8.1 fL (7.4-11.0) 09/07/18 05:00 Neut % (Auto) 78.8 % (42.0-75.0) H 09/07/18 05:00 Lymph % (Auto) 11.2 % (21.0-51.0) L 09/07/18 05:00 [place] % (Auto) 9.2 % (0.0-13.0) 09/07/18 05:00 Eos % (Auto) 0.2 % (0.9-2.9) L 09/07/18 05:00 Baso % (Auto) 0.6 % (0.2-1.0) 09/07/18 05:00 Neut # (Auto) 7.0 x10^3/uL (2.2-4.8) H 09/07/18 05:00 Lymph # (Auto) 1.0 X10^3/uL (1.3-2.9) L 09/07/18 05:00 [place] # (Auto) 0.8 x10^3/uL (0.3-0.8) 09/07/18 05:00 Eos # (Auto) 0.0 x10^3/uL (0.0-0.2) 09/07/18 05:00 Baso # (Auto) 0.1 X10^3/uL (0.0-0.1) 09/07/18 05:00 Absolute Nucleated RBC 0.0 /100WBC 09/07/18 05:00 Total Counted 100 08/30/18 04:48 Neutrophils % (Manual) 37 % (39-76) L 08/30/18 04:48 Lymphocytes % (Manual) 50 % (13-43) H 08/30/18 04:48 Monocytes % (Manual) 8 % (4-9) 08/30/18 04:48 Eosinophils % (Manual) 5 % (0-6) 08/30/18 04:48 Plt Morphology Comment Normal (NORMAL) 09/06/18 05:20 RBC Morphology Normal (NORMAL) 09/06/18 05:20 INR Target Range - 09/04/18 04:40 INR 0.97 (0.8-1.3) 09/04/18 04:40 Sodium 134 mmol/L (136-145) L 09/07/18 05:00 Corrected Sodium 138 mmol/L (136-145) 09/07/18 05:00 Potassium 3.1 mmol/L (3.5-5.1) L 09/07/18 05:00 Chloride 100 mmol/L (98-107) 09/07/18 05:00 Carbon Dioxide 25.3 mmol/L (21-32) 09/07/18 05:00 BUN 20 mg/dL (7-18) H 09/07/18 05:00 Creatinine 1.98 mg/dL (0.70-1.30) H 09/07/18 05:00 Est GFR (MDRD) Af Amer 47 (>60) L 09/07/18 05:00 Est GFR (MDRD) Non-Af 39 (>60) L 09/07/18 05:00 Glucose 259 mg/dL (65-99) H 09/07/18 05:00 POC Glucose (mg/dL) 248 mg/dL (65-99) H 09/07/18 05:40 Calcium 8.0 mg/dL (8.5-10.1) L 09/07/18 05:00 Corrected Calcium 9.4 mg/dL (8.5-10.1) 09/07/18 05:00 Magnesium 1.6 mg/dL (1.7-2.9) L 09/03/18 04:45 Total Bilirubin 2.00 mg/dL (0.2-1.0) H 09/07/18 05:00 AST 35 Units/L (15-37) 09/07/18 05:00 ALT 22 Units/L (12-78) 09/07/18 05:00 Alkaline Phosphatase 31 Units/L (46-116) L 09/07/18 05:00 Total Protein 5.8 g/dL (6.4-8.2) L 09/07/18 05:00 Albumin 2.3 g/dL (3.4-5.0) L 09/07/18 05:00 Globulin 3.5 g/dL (2.5-4.5) 09/07/18 05:00 Albumin/Globulin Ratio 0.7 Ratio (1.1-2.1) L 09/07/18 05:00 Triglycerides 258 mg/dL (0-150) H 08/30/18 04:45 Cholesterol 221 mg/dL (0-200) H 08/30/18 04:45 LDL Cholesterol, Calc 118 mg/dL (0-100) H 08/30/18 04:45 HDL Cholesterol 51 mg/dL (40-60) 08/30/18 04:45 Cholesterol/HDL Ratio 4.3 (0.0-5.0) 08/30/18 04:45 Vancomycin Trough 20.9 ug/mL (15-20) H* 09/05/18 08:52 Tissue Pathology To follow 09/05/18 14:19 Blood Type A POSITIVE 09/04/18 09:42 Antibody Screen Negative 09/04/18 09:42 Crossmatch See Detail 09/04/18 09:42 - Plan (1) Unilateral amputation of left foot Status: Acute Qualifiers: Encounter type: initial encounter Qualified Code(s): S98.912A - Complete traumatic amputation of left foot, level unspecified, initial encounter Plan: WOUND CARE, CONTINUE TO MONITOR (2) Osteomyelitis Status: Acute Qualifiers: Osteomyelitis type: unspecified type Osteomyelitis location: foot Laterality: left Qualified Code(s): M86.9 - Osteomyelitis, unspecified Plan: CONTINUE IV ANTIBIOTICS, CONTINUE TO MONITOR (3) Cellulitis of left foot Status: Acute Plan: CONTINUE IV ANTIBIOTICS AND WOUND CARE (4) Diabetes Status: Acute Qualifiers: Diabetes mellitus type: type 2 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 Diabetes mellitus complication status: with skin complications Diabetes mellitus complication detail: with foot ulcer Qualified Code(s): E11.621 - Type 2 diabetes mellitus with foot ulcer; L97.509 - Non-pressure chronic ulcer of other part of unspecified foot with unspecified severity Plan: LEVEMIR 15UNITS SC BID, HUMULIN R SLIDING SCALE, MONITOR OTBS (5) Hypertension Status: Acute Qualifiers: Hypertension type: essential hypertension Qualified Code(s): I10 - Essential (primary) hypertension Plan: NORVASC 10MG DAILY, VASOTEC 20MG PO BID, CONTINUE TO MONITOR (6) Hypokalemia Status: Acute Plan: REPLACEMENT WITH PROTOCOL, CONTINUE TO MONITOR
[2018-09-07] MEDS: NORCO 5/325 MG TAB PO PRN (16:30)
--- NOTE | 2018-09-07 19:55 | PCM.PROG ---
Progress Note - Progress Note for Day of Date of Exam: 09/07/18 - Subjective Subjective: IS STATUS POST DAY TWO BELOW THE KNEE AMPUTATION. HAD PREVIOUSLY PERFORMED AN ABOVE THE ANKLE AMPUTATION, BUT WENT FURTHER UP ON WEDNESDAY. HE RECEIVED TWO UNITS OF PACKED RED BLOOD CELLS YESTERDAY. TODAY, HE IS ALERT AND ORIENTED, LYING IN BED ON MORNING ROUNDS.THERE IS A DRESSING NOTED TO LEFT EXTREMITY. DRESSING IS DRY AND INTACT AT THIS TIME. HIS VITALS TODAY ARE 99.9-94-20-98%-140/69. LABS WERE OBTAINED THIS MORNING. ABNORMAL LAB VALUES INCLUDE THE FOLLOWING: RBC 2.75, HGB 8.5, HCT 23.6, SODIUM 1.4, POTASSIUM 3.1, BUN 20, CREATININE 1.98, GLUCOSE 259, CALCIUM 8.0, TOTAL BILI 2.00, ALK PHOS 31, TOTAL PROTEIN 5.8, ALBUMIN 2.3. WOUND CULTURE REPORTS NO GROWTH. HE IS CURRENTLY RECEIVING VANCOMYCIN 1GM IV Q12H. TODAY, WE WILL CONTINUE WITH CURRENT PLAN OF CARE AND MONITOR BLOOD GLUCOSE AND BLOOD PRESSURE. WE WILL TRANSFUSE TWO UNITS OF PACKED RED BLOOD CELLS. OTHERWISE, WE WILL CONTINUE TO MONITOR PATIENT AND FOLLOW UP WITH AM LABS. - Past Medical Family Social History Past Med/Fam/Surg Hx: No changes since H&P Allergies: Allergies No Known Drug Allergies Allergy (Verified 06/07/18 19:58) - Review of Systems ROS: No change since H&P - Vital Signs and I&O's Vital Signs: Temperature 98.7 F Pulse Rate [Bilateral Radial] 101 Pulse Rate 93 Respiratory Rate 18 Blood Pressure [Right Arm] 133/79 Blood Pressure [Left Arm] 162/90 Blood Pressure 138/81 O2 Sat by Pulse Oximetry 94 Intake and Output: Intake & Output 09/05/18 09/06/18 09/07/18 09/08/18 11:59 11:59 11:59 11:59 Intake Total 1910 / 1910 3800 / 3800 3000 / 3000 900 / 900 Output Total 400 / 400 2125 / 2125 1600 / 1600 700 / 700 Balance 1510 / 1510 1675 / 1675 1400 / 1400 200 / 200 - Physical Exam Oriented: Normal Eyes: Normal Ear: Normal Nose: Normal Throat: Normal Respiratory: Normal Cardiovascular: Normal. negative: S3, S4, Murmur : Normal Auscultation: Bowel Sounds: Normal Palpation: Normal Tenderness: Normal Skin: Wound, Other (incision is clean , no drainage ) Musculoskeletal: Left, Foot (as above , clean incision , no necrosis or cellulitis), Swelling, Tender Psychiatric: Normal Mood Description: Calm Affect: Normal Speech Pattern: Clear, Appropriate - Laboratory and Diagnostics Result Diagrams: 09/07/18 05:00 09/07/18 05:00 Labs: 08/31/18 11:00 Surgery Gram Stain - Final 08/31/18 11:00 Surgery Wound Culture - Final Laboratory WBC 8.9 X10^3/uL (3.6-10.0) 09/07/18 05:00 RBC 2.75 X10^6/uL (4.7-6.0) L 09/07/18 05:00 Hgb 8.5 g/dL (13.5-18.0) L 09/07/18 05:00 Hct 23.6 % (42.0-54.0) L 09/07/18 05:00 MCV 86.0 fL (80.0-100.0) 09/07/18 05:00 MCH 30.9 pg (27.0-34.0) 09/07/18 05:00 MCHC 36.0 g/dL (33.0-35.0) H 09/07/18 05:00 RDW 12.7 % (11.6-16.5) 09/07/18 05:00 Plt Count 204 X10^3/uL (150.0-450.0) 09/07/18 05:00 Plt Count Comment Adequate (ADEQUATE) 09/06/18 05:20 MPV 8.1 fL (7.4-11.0) 09/07/18 05:00 Neut % (Auto) 78.8 % (42.0-75.0) H 09/07/18 05:00 Lymph % (Auto) 11.2 % (21.0-51.0) L 09/07/18 05:00 [place] % (Auto) 9.2 % (0.0-13.0) 09/07/18 05:00 Eos % (Auto) 0.2 % (0.9-2.9) L 09/07/18 05:00 Baso % (Auto) 0.6 % (0.2-1.0) 09/07/18 05:00 Neut # (Auto) 7.0 x10^3/uL (2.2-4.8) H 09/07/18 05:00 Lymph # (Auto) 1.0 X10^3/uL (1.3-2.9) L 09/07/18 05:00 [place] # (Auto) 0.8 x10^3/uL (0.3-0.8) 09/07/18 05:00 Eos # (Auto) 0.0 x10^3/uL (0.0-0.2) 09/07/18 05:00 Baso # (Auto) 0.1 X10^3/uL (0.0-0.1) 09/07/18 05:00 Absolute Nucleated RBC 0.0 /100WBC 09/07/18 05:00 Total Counted 100 08/30/18 04:48 Neutrophils % (Manual) 37 % (39-76) L 08/30/18 04:48 Lymphocytes % (Manual) 50 % (13-43) H 08/30/18 04:48 Monocytes % (Manual) 8 % (4-9) 08/30/18 04:48 Eosinophils % (Manual) 5 % (0-6) 08/30/18 04:48 Plt Morphology Comment Normal (NORMAL) 09/06/18 05:20 RBC Morphology Normal (NORMAL) 09/06/18 05:20 INR Target Range - 09/04/18 04:40 INR 0.97 (0.8-1.3) 09/04/18 04:40 Sodium 134 mmol/L (136-145) L 09/07/18 05:00 Corrected Sodium 138 mmol/L (136-145) 09/07/18 05:00 Potassium 3.1 mmol/L (3.5-5.1) L 09/07/18 05:00 Chloride 100 mmol/L (98-107) 09/07/18 05:00 Carbon Dioxide 25.3 mmol/L (21-32) 09/07/18 05:00 BUN 20 mg/dL (7-18) H 09/07/18 05:00 Creatinine 1.98 mg/dL (0.70-1.30) H 09/07/18 05:00 Est GFR (MDRD) Af Amer 47 (>60) L 09/07/18 05:00 Est GFR (MDRD) Non-Af 39 (>60) L 09/07/18 05:00 Glucose 259 mg/dL (65-99) H 09/07/18 05:00 POC Glucose (mg/dL) 151 mg/dL (65-99) H 09/07/18 16:21 Calcium 8.0 mg/dL (8.5-10.1) L 09/07/18 05:00 Corrected Calcium 9.4 mg/dL (8.5-10.1) 09/07/18 05:00 Magnesium 1.6 mg/dL (1.7-2.9) L 09/03/18 04:45 Total Bilirubin 2.00 mg/dL (0.2-1.0) H 09/07/18 05:00 AST 35 Units/L (15-37) 09/07/18 05:00 ALT 22 Units/L (12-78) 09/07/18 05:00 Alkaline Phosphatase 31 Units/L (46-116) L 09/07/18 05:00 Total Protein 5.8 g/dL (6.4-8.2) L 09/07/18 05:00 Albumin 2.3 g/dL (3.4-5.0) L 09/07/18 05:00 Globulin 3.5 g/dL (2.5-4.5) 09/07/18 05:00 Albumin/Globulin Ratio 0.7 Ratio (1.1-2.1) L 09/07/18 05:00 Triglycerides 258 mg/dL (0-150) H 08/30/18 04:45 Cholesterol 221 mg/dL (0-200) H 08/30/18 04:45 LDL Cholesterol, Calc 118 mg/dL (0-100) H 08/30/18 04:45 HDL Cholesterol 51 mg/dL (40-60) 08/30/18 04:45 Cholesterol/HDL Ratio 4.3 (0.0-5.0) 08/30/18 04:45 Vancomycin Trough 20.9 ug/mL (15-20) H* 09/05/18 08:52 Tissue Pathology To follow 09/05/18 14:19 Blood Type A POSITIVE 09/04/18 09:42 Antibody Screen Negative 09/04/18 09:42 Crossmatch See Detail 09/04/18 09:42 - Plan (1) Unilateral amputation of left foot Status: Acute Qualifiers: Encounter type: initial encounter Qualified Code(s): S98.912A - Complete traumatic amputation of left foot, level unspecified, initial encounter Plan: WOUND CARE, CONTINUE TO MONITOR (2) Osteomyelitis Status: Acute Qualifiers: Osteomyelitis type: unspecified type Osteomyelitis location: foot Laterality: left Qualified Code(s): M86.9 - Osteomyelitis, unspecified Plan: CONTINUE IV ANTIBIOTICS, CONTINUE TO MONITOR (3) Cellulitis of left foot Status: Acute Plan: CONTINUE IV ANTIBIOTICS AND WOUND CARE (4) Diabetes Status: Acute Qualifiers: Diabetes mellitus type: type 2 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 Diabetes mellitus complication status: with skin complications Diabetes mellitus complication detail: with foot ulcer Qualified Code(s): E11.621 - Type 2 diabetes mellitus with foot ulcer; L97.509 - Non-pressure chronic ulcer of other part of unspecified foot with unspecified severity Plan: LEVEMIR 15UNITS SC BID, HUMULIN R SLIDING SCALE, MONITOR OTBS (5) Hypertension Status: Acute Qualifiers: Hypertension type: essential hypertension Qualified Code(s): I10 - Esse ntial (primary) hypertension Plan: NORVASC 10MG DAILY, VASOTEC 20MG PO BID, CONTINUE TO MONITOR (6) Hypokalemia Status: Acute Plan: REPLACEMENT WITH PROTOCOL, CONTINUE TO MONITOR (7) Anemia Status: Acute Qualifiers: Anemia type: unspecified type Qualified Code(s): D64.9 - Anemia, unspecified Plan: RECEIVED 2 UNITS OF PACKED RED BLOOD CELLS YESTERDAY, MONITOR H&H TODAY
[2018-09-07] MEDS: COLACE CAP 100 MG PO SCH (20:04)
[2018-09-07] MEDS: SNACK - Diabetic Appropriate PO SCH (20:06)
[2018-09-07 20:15] LABS: CREATININE 1.99 mg/dL (0.70-1.30); VANCOMYCIN,TROUGH 14.7 ug/mL (15-20)
[2018-09-07] MEDS: PERCOCET TAB 5/325 MG PO PRN (23:08)
--- NOTE | 2018-09-07 23:57 | DR.PROGNOT ---
Hospital Progress Notes - Progress Note for Day of: Progress Note Date: 09/07/18 - Chief Complaint Chief Complaint: s/p Lt BKA . c/o incisional pain and having nausea today. stable otherwise - Past Medical Family Social History Past Med/Fam/Surg Hx: No changes since H&P Allergies: Allergies No Known Drug Allergies Allergy (Verified 06/07/18 19:58) - Review Of Systems ROS: No change since H&P - Vital Signs Vital Signs: Temperature 98.7 F Pulse Rate [Bilateral Radial] 101 Pulse Rate 93 Respiratory Rate 18 Blood Pressure [Right Arm] 133/79 Blood Pressure [Left Arm] 162/90 Blood Pressure 138/81 O2 Sat by Pulse Oximetry 94 - Physical Exam Oriented: Normal Eyes: Normal Ear: Normal Nose: Normal Throat: Normal Respiratory: Normal Cardiovascular: Normal. negative: S3, S4, Murmur : Normal GI:Auscultation: Normal GI:Palpation: Normal GI: Tenderness: Normal Skin: Wound, Other (incision is clean , no drainage ) Musculoskeletal: Left, Foot (incision aand dressing intact , no drainage .. able to flex the knee with good ROM for future rehab ) Psychiatric: Normal Mood Description: Calm Affect: Normal Speech Pattern: Clear, Appropriate - Laboratory and Diagnostics Result Diagrams: 09/07/18 05:00 09/07/18 19:50 Labs: 08/31/18 11:00 Surgery Gram Stain - Final 08/31/18 11:00 Surgery Wound Culture - Final Laboratory WBC 8.9 X10^3/uL (3.6-10.0) 09/07/18 05:00 RBC 2.75 X10^6/uL (4.7-6.0) L 09/07/18 05:00 Hgb 8.5 g/dL (13.5-18.0) L 09/07/18 05:00 Hct 23.6 % (42.0-54.0) L 09/07/18 05:00 MCV 86.0 fL (80.0-100.0) 09/07/18 05:00 MCH 30.9 pg (27.0-34.0) 09/07/18 05:00 MCHC 36.0 g/dL (33.0-35.0) H 09/07/18 05:00 RDW 12.7 % (11.6-16.5) 09/07/18 05:00 Plt Count 204 X10^3/uL (150.0-450.0) 09/07/18 05:00 Plt Count Comment Adequate (ADEQUATE) 09/06/18 05:20 MPV 8.1 fL (7.4-11.0) 09/07/18 05:00 Neut % (Auto) 78.8 % (42.0-75.0) H 09/07/18 05:00 Lymph % (Auto) 11.2 % (21.0-51.0) L 09/07/18 05:00 [place] % (Auto) 9.2 % (0.0-13.0) 09/07/18 05:00 Eos % (Auto) 0.2 % (0.9-2.9) L 09/07/18 05:00 Baso % (Auto) 0.6 % (0.2-1.0) 09/07/18 05:00 Neut # (Auto) 7.0 x10^3/uL (2.2-4.8) H 09/07/18 05:00 Lymph # (Auto) 1.0 X10^3/uL (1.3-2.9) L 09/07/18 05:00 [place] # (Auto) 0.8 x10^3/uL (0.3-0.8) 09/07/18 05:00 Eos # (Auto) 0.0 x10^3/uL (0.0-0.2) 09/07/18 05:00 Baso # (Auto) 0.1 X10^3/uL (0.0-0.1) 09/07/18 05:00 Absolute Nucleated RBC 0.0 /100WBC 09/07/18 05:00 Total Counted 100 08/30/18 04:48 Neutrophils % (Manual) 37 % (39-76) L 08/30/18 04:48 Lymphocytes % (Manual) 50 % (13-43) H 08/30/18 04:48 Monocytes % (Manual) 8 % (4-9) 08/30/18 04:48 Eosinophils % (Manual) 5 % (0-6) 08/30/18 04:48 Plt Morphology Comment Normal (NORMAL) 09/06/18 05:20 RBC Morphology Normal (NORMAL) 09/06/18 05:20 INR Target Range - 09/04/18 04:40 INR 0.97 (0.8-1.3) 09/04/18 04:40 Sodium 134 mmol/L (136-145) L 09/07/18 05:00 Corrected Sodium 138 mmol/L (136-145) 09/07/18 05:00 Potassium 3.1 mmol/L (3.5-5.1) L 09/07/18 05:00 Chloride 100 mmol/L (98-107) 09/07/18 05:00 Carbon Dioxide 25.3 mmol/L (21-32) 09/07/18 05:00 BUN 20 mg/dL (7-18) H 09/07/18 05:00 Creatinine 1.99 mg/dL (0.70-1.30) H 09/07/18 19:50 Est GFR (MDRD) Af Amer 47 (>60) L 09/07/18 05:00 Est GFR (MDRD) Non-Af 39 (>60) L 09/07/18 05:00 Glucose 259 mg/dL (65-99) H 09/07/18 05:00 POC Glucose (mg/dL) 151 mg/dL (65-99) H 09/07/18 16:21 Calcium 8.0 mg/dL (8.5-10.1) L 09/07/18 05:00 Corrected Calcium 9.4 mg/dL (8.5-10.1) 09/07/18 05:00 Magnesium 1.6 mg/dL (1.7-2.9) L 09/03/18 04:45 Total Bilirubin 2.00 mg/dL (0.2-1.0) H 09/07/18 05:00 AST 35 Units/L (15-37) 09/07/18 05:00 ALT 22 Units/L (12-78) 09/07/18 05:00 Alkaline Phosphatase 31 Units/L (46-116) L 09/07/18 05:00 Total Protein 5.8 g/dL (6.4-8.2) L 09/07/18 05:00 Albumin 2.3 g/dL (3.4-5.0) L 09/07/18 05:00 Globulin 3.5 g/dL (2.5-4.5) 09/07/18 05:00 Albumin/Globulin Ratio 0.7 Ratio (1.1-2.1) L 09/07/18 05:00 Triglycerides 258 mg/dL (0-150) H 08/30/18 04:45 Cholesterol 221 mg/dL (0-200) H 08/30/18 04:45 LDL Cholesterol, Calc 118 mg/dL (0-100) H 08/30/18 04:45 HDL Cholesterol 51 mg/dL (40-60) 08/30/18 04:45 Cholesterol/HDL Ratio 4.3 (0.0-5.0) 08/30/18 04:45 Vancomycin Trough 14.7 ug/mL (15-20) L 09/07/18 19:50 Tissue Pathology To follow 09/05/18 14:19 Blood Type A POSITIVE 09/04/18 09:42 Antibody Screen Negative 09/04/18 09:42 Crossmatch See Detail 09/04/18 09:42 - Assessment and Plan 1: osteomyelitis Lt foot with chronic non healing foot ulcer..s/p Lt foot amputation. 2: DM with complications 4: HTN 5: severe adiabetic neuropathy . 6: EKG changes . 7: non compliance. plan is for rehab and early fit for prosthesis - Problem Patient Problems: Patient Problems Hypertension (Acute) I10 Hypokalemia (Acute) E87.6 Unilateral amputation of left foot (Acute) S98.912A Anemia (Acute) D64.9
[2018-09-08] MEDS: DILAUDID INJ IVP PRN ×6 (02:41→21:09)
[2018-09-08 06:04] LABS: BASOPHILS # (AUTO) 0.1 X10^3/uL (0.0-0.1); BASOPHILS % (AUTO) 0.7 % (0.2-1.0); EOSINOPHILS # (AUTO) 0.1 x10^3/uL (0.0-0.2); EOSINOPHILS % (AUTO) 0.9 % (0.9-2.9); HEMATOCRIT 21.5 % (42.0-54.0); HEMOGLOBIN 7.7 g/dL (13.5-18.0); LYMPHOCYTES # (AUTO) 2.3 X10^3/uL (1.3-2.9); LYMPHOCYTES % (AUTO) 21.9 % (21.0-51.0); MEAN CORPUSCULAR HEMOGLOBIN 31.4 pg (27.0-34.0); MEAN CORPUSCULAR HGB CONC 36.1 g/dL (33.0-35.0); MEAN CORPUSCULAR VOLUME 86.9 fL (80.0-100.0); MEAN PLATELET VOLUME 8.5 fL (7.4-11.0); MONOCYTES # (AUTO) 0.9 x10^3/uL (0.3-0.8); MONOCYTES % (AUTO) 8.4 % (0.0-13.0); NEUTROPHILS % (AUTO) 68.1 % (42.0-75.0); PLATELET COUNT 222 X10^3/uL (150.0-450.0); RED BLOOD COUNT 2.47 X10^6/uL (4.7-6.0); RED CELL DISTRIBUTION WIDTH 12.8 % (11.6-16.5); WHITE BLOOD COUNT 10.3 X10^3/uL (3.6-10.0)
[2018-09-08 06:19] LABS: ALANINE AMINOTRANSFERASE 21 Units/L (12-78); ALBUMIN 2.1 g/dL (3.4-5.0); ALKALINE PHOSPHATASE 36 Units/L (46-116); ASPARTATE AMINO TRANSFERASE 25 Units/L (15-37); BLOOD UREA NITROGEN 20 mg/dL (7-18); CARBON DIOXIDE 27.9 mmol/L (21-32); CHLORIDE 101 mmol/L (98-107); COR CA(FOR HYPOALB) 9.5 mg/dL (8.5-10.1); CREATININE 2.11 mg/dL (0.70-1.30); SODIUM 136 mmol/L (136-145); TOTAL PROTEIN 5.7 g/dL (6.4-8.2); eGFR NON BLACK RACES 36 (>60)
[2018-09-08 06:44] LABS: PLATELET MORPHOLOGY COMMENT NORMAL (NORMAL)
[2018-09-08] MEDS: K-DUR TAB 20 MEQ PO PRN ×2 (06:46→18:36)
[2018-09-08] MEDS: ALBUMIN HUMAN 25%- 100 ML 100 ML IV SCH (08:46)
[2018-09-08] MEDS: LEVEMIR SC SCH ×2 (08:46→21:08)
[2018-09-08] MEDS: LOVENOX INJ 40 MG SYR SC SCH (08:47)
[2018-09-08] MEDS: MIRALAX POWDER (1 DOSE 17 G) PO SCH (08:48)
[2018-09-08] MEDS: VASOTEC TAB 20 MG PO SCH ×2 (08:48→21:09)
[2018-09-08] MEDS: NORVASC TAB 5 MG PO SCH (08:48)
[2018-09-08] MEDS: PERCOCET TAB 5/325 MG PO PRN ×3 (09:53→19:49)
[2018-09-08] MEDS ORDERED: NS 1000 ML 1,000 ML IV ONE (09:54)
--- NOTE | 2018-09-08 11:35 | PCM.PROG ---
Progress Note - Progress Note for Day of Date of Exam: 09/08/18 - Subjective Subjective: IS STATUS POST DAY THREE BELOW THE KNEE AMPUTATION. HAD PREVIOUSLY PERFORMED AN ABOVE THE ANKLE AMPUTATION, BUT WENT FURTHER UP ON WEDNESDAY. TODAY, HE IS ALERT AND ORIENTED, LYING IN BED ON MORNING ROUNDS.THERE IS A DRESSING NOTED TO LEFT EXTREMITY. DRESSING IS DRY AND INTACT AT THIS TIME. HIS VITALS TODAY ARE 99.5-90-20-97%-141/84. LABS WERE OBTAINED THIS MORNING. ABNORMAL LAB VALUES INCLUDE THE FOLLOWING: WBC 10.3, RBC 2.47, HGB 7.7, HCT 21.5, POTASSIUM 2.9, BUN 20, CREATININE 2.11, CALCIUM 8.0, ALK PHOS 36, TOTAL PROTEIN 5.7, ALBUMIN 2.1. WOUND CULTURE REPORTS NO GROWTH. HE IS CURRENTLY RECEIVING VANCOMYCIN 1GM IV Q12H. TODAY, WE WILL CONTINUE WITH CURRENT PLAN OF CARE AND MONITOR BLOOD GLUCOSE AND BLOOD PRESSURE. WE WILL BOLUS HIM WITH 1 LITER NORMAL SALINE DUE TO INCREASED CREATININE. OTHERWISE, WE WILL CONTINUE TO MONITOR PATIENT AND FOLLOW UP WITH AM LABS. - Past Medical Family Social History Past Med/Fam/Surg Hx: No changes since H&P Allergies: Allergies No Known Drug Allergies Allergy (Verified 06/07/18 19:58) - Review of Systems ROS: No change since H&P - Vital Signs and I&O's Vital Signs: Temperature 99.5 F Pulse Rate [Bilateral Radial] 90 Pulse Rate 93 Respiratory Rate 20 Blood Pressure [Right Arm] 141/84 Blood Pressure [Left Arm] 162/90 Blood Pressure 138/81 O2 Sat by Pulse Oximetry 97 Intake and Output: Intake & Output 09/05/18 09/06/18 09/07/18 09/08/18 11:59 11:59 11:59 11:59 Intake Total 1910 / 1910 3800 / 3800 3000 / 3000 2920 / 2920 Output Total 400 / 400 2125 / 2125 1600 / 1600 1876 / 1876 Balance 1510 / 1510 1675 / 1675 1400 / 1400 1044 / 1044 - Physical Exam Oriented: Normal Eyes: Normal Ear: Normal Nose: Normal Throat: Normal Respiratory: Normal Cardiovascular: Normal. negative: S3, S4, Murmur : Normal Auscultation: Bowel Sounds: Normal Palpation: Normal Tenderness: Normal Skin: Wound, Other (incision is clean , no drainage ) Musculoskeletal: Left, Foot (incision aand dressing intact , no drainage .. able to flex the knee with good ROM for future rehab ) Psychiatric: Normal Mood Description: Calm Affect: Normal Speech Pattern: Clear, Appropriate - Laboratory and Diagnostics Result Diagrams: 09/08/18 05:20 09/08/18 09:43 Labs: 08/31/18 11:00 Surgery Gram Stain - Final 08/31/18 11:00 Surgery Wound Culture - Final Laboratory WBC 10.3 X10^3/uL (3.6-10.0) H 09/08/18 05:20 RBC 2.47 X10^6/uL (4.7-6.0) L 09/08/18 05:20 Hgb 7.7 g/dL (13.5-18.0) L 09/08/18 05:20 Hct 21.5 % (42.0-54.0) L 09/08/18 05:20 MCV 86.9 fL (80.0-100.0) 09/08/18 05:20 MCH 31.4 pg (27.0-34.0) 09/08/18 05:20 MCHC 36.1 g/dL (33.0-35.0) H 09/08/18 05:20 RDW 12.8 % (11.6-16.5) 09/08/18 05:20 Plt Count 222 X10^3/uL (150.0-450.0) 09/08/18 05:20 Plt Count Comment Adequate (ADEQUATE) 09/08/18 05:20 MPV 8.5 fL (7.4-11.0) 09/08/18 05:20 Neut % (Auto) 68.1 % (42.0-75.0) 09/08/18 05:20 Lymph % (Auto) 21.9 % (21.0-51.0) 09/08/18 05:20 [place] % (Auto) 8.4 % (0.0-13.0) 09/08/18 05:20 Eos % (Auto) 0.9 % (0.9-2.9) 09/08/18 05:20 Baso % (Auto) 0.7 % (0.2-1.0) 09/08/18 05:20 Neut # (Auto) 7.0 x10^3/uL (2.2-4.8) H 09/08/18 05:20 Lymph # (Auto) 2.3 X10^3/uL (1.3-2.9) 09/08/18 05:20 [place] # (Auto) 0.9 x10^3/uL (0.3-0.8) H 09/08/18 05:20 Eos # (Auto) 0.1 x10^3/uL (0.0-0.2) 09/08/18 05:20 Baso # (Auto) 0.1 X10^3/uL (0.0-0.1) 09/08/18 05:20 Absolute Nucleated RBC 0.0 /100WBC 09/08/18 05:20 Total Counted 100 08/30/18 04:48 Neutrophils % (Manual) 37 % (39-76) L 08/30/18 04:48 Lymphocytes % (Manual) 50 % (13-43) H 08/30/18 04:48 Monocytes % (Manual) 8 % (4-9) 08/30/18 04:48 Eosinophils % (Manual) 5 % (0-6) 08/30/18 04:48 Plt Morphology Comment Normal (NORMAL) 09/08/18 05:20 RBC Morphology Normal (NORMAL) 09/08/18 05:20 INR Target Range - 09/04/18 04:40 INR 0.97 (0.8-1.3) 09/04/18 04:40 Sodium 136 mmol/L (136-145) 09/08/18 05:20 Corrected Sodium TNP 09/08/18 05:20 Potassium 3.4 mmol/L (3.5-5.1) L 09/08/18 09:43 Chloride 101 mmol/L (98-107) 09/08/18 05:20 Carbon Dioxide 27.9 mmol/L (21-32) 09/08/18 05:20 BUN 20 mg/dL (7-18) H 09/08/18 05:20 Creatinine 2.11 mg/dL (0.70-1.30) H 09/08/18 05:20 Est GFR (MDRD) Af Amer 44 (>60) L 09/08/18 05:20 Est GFR (MDRD) Non-Af 36 (>60) L 09/08/18 05:20 Glucose 93 mg/dL (65-99) 09/08/18 05:20 POC Glucose (mg/dL) 151 mg/dL (65-99) H 09/07/18 16:21 Calcium 8.0 mg/dL (8.5-10.1) L 09/08/18 05:20 Corrected Calcium 9.5 mg/dL (8.5-10.1) 09/08/18 05:20 Magnesium 1.9 mg/dL (1.7-2.9) 09/08/18 05:20 Total Bilirubin 0.80 mg/dL (0.2-1.0) 09/08/18 05:20 AST 25 Units/L (15-37) 09/08/18 05:20 ALT 21 Units/L (12-78) 09/08/18 05:20 Alkaline Phosphatase 36 Units/L (46-116) L 09/08/18 05:20 Total Protein 5.7 g/dL (6.4-8.2) L 09/08/18 05:20 Albumin 2.1 g/dL (3.4-5.0) L 09/08/18 05:20 Globulin 3.6 g/dL (2.5-4.5) 09/08/18 05:20 Albumin/Globulin Ratio 0.6 Ratio (1.1-2.1) L 09/08/18 05:20 Triglycerides 258 mg/dL (0-150) H 08/30/18 04:45 Cholesterol 221 mg/dL (0-200) H 08/30/18 04:45 LDL Cholesterol, Calc 118 mg/dL (0-100) H 08/30/18 04:45 HDL Cholesterol 51 mg/dL (40-60) 08/30/18 04:45 Cholesterol/HDL Ratio 4.3 (0.0-5.0) 08/30/18 04:45 Vancomycin Trough 14.7 ug/mL (15-20) L 09/07/18 19:50 Tissue Pathology To follow 09/05/18 14:19 Blood Type A POSITIVE 09/04/18 09:42 Antibody Screen Negative 09/04/18 09:42 Crossmatch See Detail 09/04/18 09:42 - Plan (1) Unilateral amputation of left foot Status: Acute Qualifiers: Encounter type: initial encounter Qualified Code(s): S98.912A - Complete traumatic amputation of left foot, level unspecified, initial encounter Plan: WOUND CARE, CONTINUE TO MONITOR (2) Osteomyelitis Status: Acute Qualifiers: Osteomyelitis type: unspecified type Osteomyelitis location: foot Laterality: left Qualified Code(s): M86.9 - Osteomyelitis, unspecified Plan: CONTINUE IV ANTIBIOTICS, CONTINUE TO MONITOR (3) Cellulitis of left foot Status: Acute Plan: CONTINUE IV ANTIBIOTICS AND WOUND CARE (4) Diabetes Status: Acute Qualifiers: Diabetes mellitus type: type 2 Diabetes mellitus dedicated intermodal truck driver insulin use: unspecified assisted insulin use status Diabetes mellitus complication status: with skin complications Diabetes mellitus complication detail: with foot ulcer Qualified Code(s): E11.621 - Type 2 diabetes mellitus with foot ulcer; L97.509 - Non-pressure chronic ulcer of other part of unspecified foot with unspecified severity Plan: LEVEMIR 15UNITS SC BID, HUMULIN R SLIDING SCALE, MONITOR OTBS (5) Hypertension Status: Acute Qualifiers: Hypertension type: essential hypertension Qualified Code(s): I10 - Essential (primary) hypertension Plan: NORVASC 10MG DAILY, VASOTEC 20MG PO BID, CONTINUE TO MONITOR (6) Hypokalemia Status: Acute Plan: REPLACEMENT WITH PROTOCOL, CONTINUE TO MONITOR (7) Anemia Status: Acute Qualifiers: Anemia type: unspecified type Qualified Code(s): D64.9 - Anemia, unspecified Plan: MONITOR H&H TODAY
[2018-09-08] MEDS: HumuLIN R SUBCUT PRN (12:07)
[2018-09-08] MEDS: VANCOMYCIN HCL 1 GM VIAL 1 G in D5W 250 ML IV 250 ML IV SCH (15:15)
[2018-09-08] MEDS ORDERED: PHARMACY COMMENT IV NR (17:30)
[2018-09-08] MEDS: PHENERGAN INJ 25 MG IV PRN (18:28)
[2018-09-08] MEDS: SNACK - Diabetic Appropriate PO SCH (21:07)
[2018-09-08] MEDS: COLACE CAP 100 MG PO SCH (21:09)
[2018-09-09] MEDS: NS 1000 ML 1,000 ML IV PRN (01:37)
[2018-09-09] MEDS: DILAUDID INJ IVP PRN ×3 (02:50→11:29)
[2018-09-09 05:28] LABS: BASOPHILS # (AUTO) 0.1 X10^3/uL (0.0-0.1); BASOPHILS % (AUTO) 0.7 % (0.2-1.0); EOSINOPHILS # (AUTO) 0.1 x10^3/uL (0.0-0.2); EOSINOPHILS % (AUTO) 1.3 % (0.9-2.9); HEMATOCRIT 21.1 % (42.0-54.0); HEMOGLOBIN 7.6 g/dL (13.5-18.0); LYMPHOCYTES # (AUTO) 1.6 X10^3/uL (1.3-2.9); LYMPHOCYTES % (AUTO) 18.9 % (21.0-51.0); MEAN CORPUSCULAR HEMOGLOBIN 31.4 pg (27.0-34.0); MEAN CORPUSCULAR VOLUME 87.1 fL (80.0-100.0); MEAN PLATELET VOLUME 8.4 fL (7.4-11.0); MONOCYTES # (AUTO) 0.7 x10^3/uL (0.3-0.8); MONOCYTES % (AUTO) 8.4 % (0.0-13.0); NEUTROPHILS % (AUTO) 70.7 % (42.0-75.0); PLATELET COUNT 281 X10^3/uL (150.0-450.0); RED BLOOD COUNT 2.42 X10^6/uL (4.7-6.0); RED CELL DISTRIBUTION WIDTH 12.6 % (11.6-16.5); WHITE BLOOD COUNT 8.4 X10^3/uL (3.6-10.0)
[2018-09-09] MEDS: HumuLIN R SUBCUT PRN ×2 (05:53→11:29)
[2018-09-09 05:56] LABS: ALBUMIN 2.3 g/dL (3.4-5.0); CARBON DIOXIDE 27.6 mmol/L (21-32); COR CA(FOR HYPOALB) 9.4 mg/dL (8.5-10.1); CREATININE 1.97 mg/dL (0.70-1.30); TOTAL PROTEIN 6.1 g/dL (6.4-8.2)
[2018-09-09 06:40] LABS: PLATELET MORPHOLOGY COMMENT NORMAL (NORMAL)
[2018-09-09] MEDS: VANCOMYCIN HCL 1 GM VIAL 1 G in D5W 250 ML IV 250 ML IV SCH (09:15)
[2018-09-09] MEDS: MIRALAX POWDER (1 DOSE 17 G) PO SCH (09:16)
[2018-09-09] MEDS: ALBUMIN HUMAN 25%- 100 ML 100 ML IV SCH (09:16)
[2018-09-09] MEDS: NORVASC TAB 5 MG PO SCH (09:17)
[2018-09-09] MEDS: VASOTEC TAB 20 MG PO SCH (09:17)
[2018-09-09] MEDS: LEVEMIR SC SCH (09:31)
[2018-09-09] MEDS: LOVENOX INJ 40 MG SYR SC SCH (09:32)
[2018-09-09 09:59] VITALS: BP 126/58
== END 2018-09-09 13:50 | disposition home or self-care (01) | DRG 475 ==
LOC: MED/SURG 14:20
PROVIDERS: ADMIT Surgery; ATTEND Surgery
DX: D64.89 Other specified anemias; M86.672 Other chronic osteomyelitis, left ankle and foot; L97.528 Non-pressure chronic ulcer of other part of left foot with other specified severity; I73.89 Other specified peripheral vascular diseases; N18.9 Chronic kidney disease, unspecified; E10.621 Type 1 diabetes mellitus with foot ulcer; M00.872 Arthritis due to other bacteria, left ankle and foot; Z79.4 Long term (current) use of insulin; I12.9 Hypertensive chronic kidney disease with stage 1 through stage 4 chronic kidney disease, or unspecified chronic kidney disease; E78.2 Mixed hyperlipidemia; G40.89 Other seizures; R60.0 Localized edema; L03.116 Cellulitis of left lower limb; E87.6 Hypokalemia; Z89.422 Acquired absence of other left toe(s); E10.40 Type 1 diabetes mellitus with diabetic neuropathy, unspecified; E10.65 Type 1 diabetes mellitus with hyperglycemia
CPT/HCPCS: 36415; 36430; 73630; 80053; 80061; 80202; 82565; 82947; 83735; 84132; 85014; 85018; 85025; 85610; 86850; 86900; 86901; 86922; 87070; 87075; 87205; 93306; 93880; 97163; 97167; A4216; A4222; P9016; P9047; J1170; J1200; J1650; J1815; J2250; J2405; J2550; J2704; J2765; J3010; J3370; J3475; J3480; J3490; J7030; J7040; J7050; J7060; J7120